=== PATIENT | female | born 1940 | race African-American/Black ===

== ENCOUNTER 2016-12-08 09:34 | Inpatient (IN) | payer OTHER ==
--- NOTE | 2016-12-08 10:12 | PDOC ---
Attending Attestation - HPI HPI: 12/08/16 10:31 76 y/o F with no known PMHx presents to the ED with nausea and vomiting today. Patient reports one episode of bilious vomit. She reports associated headache and abdominal pain. Per sister, patients in August and has been very sad since. Sister reports the patient seems confused. Patient reports she is a healthy and has not seen a doctor in years. Denies chest pain, SOB, dizziness. Denies fever, chills. Denies diarrhea, constipation. - Physicial Exam PE: 12/08/16 10:45 GENERAL: A&Ox2 (minus time), in no acute distress HEAD: No signs of trauma EYES: PERRLA, EOMI, sclera anicteric, conjunctiva clear ENT: Auricles normal inspection, hearing grossly normal, nares patent, oropharynx clear without exudates. Moist mucosa NECK: Normal ROM, supple, no lymphadenopathy, JVD, or masses LUNGS: Breath sounds equal, clear to auscultation bilaterally. No wheezes, and no crackles HEART: Regular rate and rhythm, normal S1 and S2, no murmurs, rubs or gallops ABDOMEN: Soft, nontender, normoactive bowel sounds. No guarding, no rebound. No masses EXTREMITIES: Normal range of motion, no edema. No clubbing or cyanosis. No cords, erythema, or tenderness NEUROLOGICAL: Cranial nerves II through XII grossly intact. Normal speech, normal gait SKIN: Warm, Dry, normal turgor, no rashes or lesions noted. - Medical Decision Making 12/08/16 10:31 Documentation prepared by Swetha Holman, acting as hospitalist medical director for Mary Chapman MD. <Swetha Holman - Last Filed: 12/08/16 10:45> - Resident Resident Name: Chandu Khan - ED Attending Attestation I have performed the following: I have examined & evaluated the patient, The case was reviewed & discussed with the resident, I agree w/resident's findings & plan, Exceptions are as noted - Medical Decision Making Pt with altered mental status (confused, disoriented to time, which is different per family at bedside), extremely elevated BP. Found to have UTI. Will treat the BP, goal of MAP reduction by 25% in ED. Will admit. <Mary Chapman - Last Filed: 12/08/16 16:06>
[2016-12-08] MEDS ORDERED: LABETALOL HCL 5 MG/1 ML (100MG/20 ML VIAL) IVPUSH ONE (10:18)
[2016-12-08 10:19] LABS: BASOPHIL 1.2 % (0-2.0); EOSINOPHIL 0.8 % (0-4.5); MCH 26.3 pg (25.7-33.7); MEAN CELL VOLUME 82.1 fl (80-96); MEAN PLT VOLUME 9.2 fl (7.5-11.1); NEUTROPHILS 82.9 % (42.8-82.8); PLATELET COUNT 225 K/MM3 (134-434); WHITE BLOOD COUNT 5.9 K/mm3 (4.0-10.0)
[2016-12-08] MEDS ORDERED: LABETALOL HCL 5 MG/1 ML (200MG/40ML VIAL) IVPB ONE (10:20)
[2016-12-08 10:32] LABS: URINE APPEARANCE SLCLOUDY; URINE BILIRUBIN NEGATIVE (NEGATIVE); URINE BLOOD 1+ (NEGATIVE); URINE COLOR YELLOW; URINE GLUCOSE (UA) 1+ (NEGATIVE); URINE KETONE NEGATIVE (NEGATIVE); URINE LEUK ESTERASE TRACE (NEGATIVE); URINE NITRITE POSITIVE (NEGATIVE); URINE UROBILINOGEN NEGATIVE mg/dL (0.2-1.0)
[2016-12-08 10:32] LABS: INR 1.04 (0.82-1.09); PROTHROMBIN TIME (PATIENT) 11.4 SEC (9.98-11.88)
[2016-12-08 10:37] LABS: URINE PROTEIN 2+ (NEGATIVE)
[2016-12-08 10:39] LABS: URINE BACTERIA FEW /hpf (NONE SEEN); URINE MUCUS RARE; URINE RBC 9 /hpf (0-3); URINE WBC 7 /hpf (3-5); YEAST RARE
--- NOTE | 2016-12-08 10:46 | PDOC ---
History of Present Illness - General Chief Complaint: Headache Stated Complaint: ABD PAIN, HEADACHE Time Seen by Provider: 12/08/16 09:46 History Source: Patient Exam Limitations: No Limitations - History of Present Illness Initial Comments: 12/08/16 10:38 Patient is a 76F with no known medical history here today complaining of abdominal pain, headache, nausea and vomiting. Her sister is here saying that she's been confused as well. She had 1 episode of green-brown vomit, no blood or coffee grounds. After initially saying that she had headache, abdominal pain and vomiting, she now states that she has no pain anywhere. She denies any symptoms, including nausea, vomiting, fevers, chills, urinary symptoms, constipation, diarrhea, rashes and leg swelling. Past History - Past Medical History Allergies/Adverse Reactions: Allergies Allergy/AdvReac Type Severity Reaction Status Date / Time No Known Allergies Allergy Verified 12/08/16 09:40 Home Medications: Ambulatory Orders NK [No Known Home Medication] 12/08/16 Other medical history: none - Suicide/Smoking/Psychosocial Hx Smoking History: Former smoker Have you smoked in the past 12 months: No Information on smoking cessation initiated: No Hx Alcohol Use: No Drug/Substance Use Hx: No Substance Use Type: None Review of Systems - Review of Systems Comments:: 12/08/16 10:46 GENERAL/CONSTITUTIONAL: No fever or chills. No weakness. HEAD, EYES, EARS, NOSE AND THROAT: No change in vision. No ear pain or discharge. No sore throat. CARDIOVASCULAR: No chest pain or shortness of breath RESPIRATORY: No cough, wheezing, or hemoptysis. GASTROINTESTINAL: No nausea, vomiting, diarrhea or constipation. GENITOURINARY: No dysuria, frequency, or change in urination. MUSCULOSKELETAL: No joint or muscle swelling or pain. No neck or back pain. SKIN: No rash NEUROLOGIC: No headache, vertigo, loss of consciousness, or change in strength/ sensation. ENDOCRINE: No increased thirst. No abnormal weight change HEMATOLOGIC/LYMPHATIC: No anemia, easy bleeding, or history of blood clots. ALLERGIC/IMMUNOLOGIC: No hives or skin allergy. *Physical Exam - Vital Signs Last Vital Signs Temp Pulse Resp BP Pulse Ox 97.7 F 70 18 195/92 100 12/08/16 09:41 12/08/16 10:30 12/08/16 09:41 12/08/16 10:30 12/08/16 10:03 - Physical Exam Comments: 12/08/16 11:10 GENERAL: Awake, alert, oriented to place but not time, in no acute distress HEAD: No signs of trauma, normocephalic, atraumatic EYES: PERRLA, EOMI, sclera anicteric, conjunctiva clear ENT: Auricles normal inspection, hearing grossly normal, nares patent, oropharynx clear without exudates. NECK: Normal ROM, supple, no lymphadenopathy, JVD, or masses LUNGS: No distress, speaks full sentences, clear to auscultation bilaterally HEART: Regular rate and rhythm, normal S1 and S2, no murmurs, rubs or gallops, peripheral pulses normal and equal bilaterally. ABDOMEN: Soft, nontender, normoactive bowel sounds. No guarding, no rebound. No masses EXTREMITIES: Normal inspection, Normal range of motion, no edema. No clubbing or cyanosis. NEUROLOGICAL: Cranial nerves II through XII grossly intact. Normal speech, no focal sensorimotor deficits SKIN: Warm, Dry, normal turgor, no rashes or lesions noted. ED Treatment Course - LABORATORY CBC & Chemistry Diagram: 12/08/16 10:14 12/08/16 11:55 - ADDITIONAL ORDERS Additional order review: Laboratory Results 12/08/16 10:18 Urine Color Yellow Urine Appearance Slcloudy Urine pH 7.0 Urine Protein 2+ H Urine Glucose (UA) 1+ H Urine Ketones Negative Urine Blood 1+ H Urine Nitrite Positive Urine Bilirubin Negative Urine Urobilinogen Negative 12/08/16 10:14 RBC 5.04 MCV 82.1 MCHC 32.0 RDW 17.0 H MPV 9.2 Neutrophils % 82.9 H Lymphocytes % 9.6 Monocytes % 5.5 Eosinophils % 0.8 Basophils % 1.2 - RADIOLOGY Radiology Studies Ordered: Category Date Time Status HEAD CT WITHOUT CONTRAST [CT] Stat CT Scan 12/08/16 10:12 Ordered CHEST X-RAY PORTABLE* [RAD] Stat Radiology 12/08/16 10:10 Taken - Medications Given in the ED: ED Medications Discontinued Medications Generic Name Dose Route Start Last Admin Trade Name Freq PRN Reason Stop Dose Admin Labetalol HCl 10 mg 12/08/16 10:18 12/08/16 10:24 Normodyne Injection - IVPUSH 09/19/17 10:19 10 mg ONCE ONE Administration Medical Decision Making - Medical Decision Making 12/08/16 11:11 76F with no known medical history here today complaining of nausea, vomiting, headache, and abdominal pain. Hypertensive to 252 systolic. Vital signs otherwise normal and stable. Physical exam shows no abdominal pain, but concern that patient is confused and non-cooperative. Differential diagnosis is very broad, and includes: ACS, ICH, UTI. Broad workup initiated, including labs, chest x-ray, ecg and head ct. Given 10mg labetalol. Repeat BP 195. 12/08/16 11:25 Laboratory Tests 12/08/16 12/08/16 10:14 10:18 WBC 5.9 Hgb 13.2 Hct 41.4 Plt Count 225 Urine Nitrite Positive Urine WBC 7 cbc normal, ua shows uti. Will treat with rocephin 1g. CMP and trop hemolyzed, will resend. 12/08/16 11:26 CXR shows cardiomegaly. ECG shows normal sinus rhythm, left axis deviation, normal rate, QTc 398, no t wave inversions. 12/08/16 11:27 CT Head shows no ICH or other acute process. 12/08/16 12:46 Laboratory Tests 12/08/16 10:14 Troponin I Cancelled Trop negative, cmp reassuring. *DC/Admit/Observation/Transfer Diagnosis at time of Disposition: UTI (urinary tract infection) Qualifiers: Urinary tract infection type: site unspecified Hypertension Qualifiers: Hypertension type: unspecified Qualified Code(s): I10 - Essential (primary) hypertension - Discharge Dispostion Condition at time of disposition: Stable Admit: Yes
[2016-12-08 10:48] LABS: CHOLESTEROL 284 mg/dL (50-200)
[2016-12-08] MEDS ORDERED: CEFTRIAXONE 1 GM in DEXTROSE 5%-WATER - 50 ML IVPB ONE (11:15)
[2016-12-08] MEDS ORDERED: CEFTRIAXONE 50 ML ONE (11:21)
[2016-12-08 12:33] LABS: ALBUMIN 3.9 g/dl (3.4-5.0); ANION GAP 8 (8-16); BILIRUBIN,TOTAL 1.6 mg/dL (0.2-1.0); CALCIUM 9.5 mg/dL (8.5-10.1); CO2 31 mmol/L (21-32); CREATININE 0.8 mg/dL (0.55-1.02); GLUCOSE,RANDOM 113 mg/dL (74-106); SGOT/AST 15 U/L (15-37); SGPT/ALT 14 U/L (12-78)
[2016-12-08 12:35] LABS: ALK PHOS 52 U/L (45-117); CPK 93 IU/L (26-192); TROPONIN I < 0.02 ng/ml (0.00-0.05)
--- NOTE | 2016-12-08 13:44 | HP ---
<Valentina Carter I - Last Filed: 12/08/16 16:26> CHIEF COMPLAINT: Not feeling herself PCP: None HISTORY OF PRESENT ILLNESS: Patient is a poor historian. History I got from the patient is different from what was documented when she arrived in the ED. The family did not provide history for the patient as she appeared alert and oriented when I saw her. The patient is a 76 year old female with PMHx of HTN, not taking any medication , last visit to a doctor about 4 years ago, presenting today for "not feeling herself". Patient said she was in her usual state of health when she woke up this morning and felt a "flash in her head." She denies seizure, headache, syncope, weakness of any limbs, difficulty in closing her eyes, change in her speech or drooling. She denies chest pain or SOB. No fever or chills. No nausea or vomiting. Patient was teary-eyed during the history, says she has been independent and is reluctant to have to be confined to a bed in the hospital. On arrival at the ED, her blood pressure was found to be 252/105 for which she received iv push of 10mg Labetolol repeat BP was 195/92 and the most recent BP was 188/96. Patient denied any chest pain, and a CXR in the ED- showed cardiomegaly, and no evidence of exudates or pleural effusion. She called her sister, who now brought her to the hospital. ER course was notable for: (1)CXR-No infiltrates (2)CT head- No acute hemorrhage, age related degeneration and old lacunar infarcts (3)UA- Protein 2+, Glucose 1+ 4) Lipid panel- elevated Cholesterol-284, Total-188, HDL-78 5) CMP - elevated bilirubin 6) EKG- Left [place] Deviation, sinus bradycardia 7) Troponins- negative 8) Ceftriaxone 1gm Recent Travel: PAST MEDICAL HISTORY: PAST SURGICAL HISTORY: Social History: Smoking: Stopped over 11 years ago after Alcohol: Drugs: Family History: Mother in her 80yrs, of a stroke and had been hypertensive. Has 9 other siblings all of which are hypertensive on BP meds Allergies No Known Allergies Allergy (Verified 12/08/16 09:40) HOME MEDICATIONS: Home Medications Medication Instructions Recorded NK [No Known Home Medication] 09/19/17 REVIEW OF SYSTEMS CONSTITUTIONAL: Absent: fever, chills, diaphoresis, generalized weakness, malaise, loss of appetite, weight change HEENT: Absent: rhinorrhea, nasal congestion, throat pain, throat swelling, difficulty swallowing, mouth swelling, ear pain, eye pain, visual changes CARDIOVASCULAR: Absent: chest pain, syncope, palpitations, irregular heart rate, lightheadedness , peripheral edema RESPIRATORY: Absent: cough, shortness of breath, dyspnea with exertion, orthopnea, wheezing, stridor, hemoptysis GASTROINTESTINAL: Absent: abdominal pain, abdominal distension, nausea, vomiting, diarrhea, constipation, melena, hematochezia GENITOURINARY: Absent: dysuria, frequency, urgency, hesitancy, hematuria, flank pain, genital pain MUSCULOSKELETAL: Absent: myalgia, arthralgia, joint swelling, back pain, neck pain SKIN: Absent: rash, itching, pallor HEMATOLOGIC/IMMUNOLOGIC: Absent: easy bleeding, easy bruising, lymphadenopathy, frequent infections ENDOCRINE: Absent: unexplained weight gain, unexplained weight loss, heat intolerance, cold intolerance NEUROLOGIC: Absent: headache, focal weakness or paresthesias, dizziness, unsteady gait, seizure, mental status changes, bladder or bowel incontinence PSYCHIATRIC: Absent: anxiety, depression, suicidal or homicidal ideation, hallucinations. PHYSICAL EXAMINATION Selected Entries 12/08/16 12/08/16 12/08/16 10:19 10:30 12:23 Blood Pressure 252/105 195/92 188/96 [Right Arm] Vital Signs - 24 hr 12/08/16 12/08/16 12/08/16 09:41 10:03 10:19 Temperature 97.7 F Pulse Rate 66 Pulse Rate [ 60 Apical] Respiratory 18 Rate Blood Pressure 205/108 Blood Pressure 252/105 [Right Arm] O2 Sat by Pulse 100 100 Oximetry (%) 12/08/16 12/08/16 10:30 12:23 Temperature 97.7 F Pulse Rate Pulse Rate [ 70 59 L Apical] Respiratory 20 Rate Blood Pressure Blood Pressure 195/92 188/96 [Right Arm] O2 Sat by Pulse 97 Oximetry (%) GENERAL: Awake, alert, and fully oriented, in no acute distress. HEAD: Normal with no signs of trauma. EYES: Pupils equal, round and reactive to light, extraocular movements intact, sclera anicteric, conjunctiva clear. No lid lag. EARS, NOSE, THROAT: Ears normal, nares patent, oropharynx clear without exudates. Moist mucous membranes. NECK: Normal range of motion, supple, no JVD. LUNGS: Breath sounds equal, clear to auscultation bilaterally. No wheezes, and no crackles. No accessory muscle use. HEART: [place] deviated, Regular rate and rhythm, normal S1 and S2 without murmur, rub or gallop. ABDOMEN: Soft, nontender, not distended, normoactive bowel sounds, no guarding, no rebound, no masses. No hepatomegaly or splenomegaly. MUSCULOSKELETAL: Normal range of motion at all joints. No bony deformities or tenderness. No CVA tenderness. UPPER EXTREMITIES: 2+ pulses, warm, well-perfused. No cyanosis. No clubbing. No peripheral edema. LOWER EXTREMITIES: 2+ pulses, warm, well-perfused. No calf tenderness. No peripheral edema. Callous L medial big toe. NEUROLOGICAL: No facial droop. Normal tone all limbs. Muscle strength 5/5 globally, Cranial nerves II-XII intact. Normal speech. Normal gait. PSYCHIATRIC: Cooperative. Good eye contact. Appropriate mood and affect. SKIN: Warm, dry, normal turgor, no rashes or lesions noted, normal capillary refill. Laboratory Results - last 24 hr 12/08/16 12/08/16 12/08/16 10:14 10:14 10:14 WBC 5.9 RBC 5.04 Hgb 13.2 Hct 41.4 MCV 82.1 MCH 26.3 MCHC 32.0 RDW 17.0 H Plt Count 225 MPV 9.2 Neutrophils % 82.9 H Lymphocytes % 9.6 Monocytes % 5.5 Eosinophils % 0.8 Basophils % 1.2 PT with INR 11.40 INR 1.04 Sodium Cancelled Potassium Cancelled Chloride Cancelled Carbon Dioxide Cancelled Anion Gap Cancelled BUN Cancelled Creatinine Cancelled Creat Clearance w eGFR Cancelled Random Glucose Cancelled Calcium Cancelled Magnesium Cancelled Total Bilirubin Cancelled AST Cancelled ALT Cancelled Alkaline Phosphatase Cancelled Creatine Kinase Cancelled Troponin I Cancelled Total Protein Cancelled Albumin Cancelled Triglycerides Cholesterol Total LDL Cholesterol HDL Cholesterol Urine Color Urine Appearance Urine pH Urine Protein Urine Glucose (UA) Urine Ketones Urine Blood Urine Nitrite Urine Bilirubin Urine Urobilinogen Urine RBC Urine WBC Ur Epithelial Cells Urine Bacteria Urine Mucus Urine Yeast 12/08/16 12/08/16 12/08/16 10:14 10:18 11:55 WBC RBC Hgb Hct MCV MCH MCHC RDW Plt Count MPV Neutrophils % Lymphocytes % Monocytes % Eosinophils % Basophils % PT with INR INR Sodium 141 Potassium 4.0 Chloride 102 Carbon Dioxide 31 Anion Gap 8 BUN 15 Creatinine 0.8 Creat Clearance w eGFR > 60 Random Glucose 113 H Calcium 9.5 Magnesium Total Bilirubin 1.6 H AST 15 ALT 14 Alkaline Phosphatase 52 Creatine Kinase 93 Troponin I < 0.02 Total Protein 7.0 Albumin 3.9 Triglycerides 95 Cholesterol 284 H Total LDL Cholesterol 188 H HDL Cholesterol 78 H Urine Color Yellow Urine Appearance Slcloudy Urine pH 7.0 Urine Protein 2+ H Urine Glucose (UA) 1+ H Urine Ketones Negative Urine Blood 1+ H Urine Nitrite Positive Urine Bilirubin Negative Urine Urobilinogen Negative Urine RBC 9 Urine WBC 7 Ur Epithelial Cells Rare Urine Bacteria Few Urine Mucus Rare Urine Yeast Rare ASSESSMENT/PLAN: The patient is a 76 year old female with PMHx of HTN, not taking any medication , last visit to a doctor about 4 years ago, presenting today for "not feeling herself" and found to have severe blood pressure. #Hypertensive urgency: iv Labetolol 10mg stat-given Lisinopril 20mg PO daily Norvasc 10mg PO daily Give Enalapril 1.25mg if SBP is greater than 190mmHg and to hold if SBP is less than 160mmHg Continous cardiac monitoring Cardiology consult-Dr. Lewis saw #Hyperlipidemia: Atorvostatin 40mg daily #Proteinuria: 2+ proteins, 9 RBCs, R/o UTI Urine culture- Microalbuminuria Iv ceftriaxone 1gm stat- given Normal GFR and CR, so not likely hypertensive disease Discontinue ceftriaxone #Glycosuria: Glucose 1+ No history of DM RPG- 113 HbgA1C #Hyperbilirubinemia Follow -CMP Visit type - Emergency Visit Emergency Visit: Yes ED Registration Date: 12/08/16 Care time: The patient presented to the Emergency Department on the above date and was hospitalized for further evaluation of their emergent condition. - New Patient This patient is new to me today: Yes Date on this admission: 12/08/16 - Critical Care Critical Care patient: No <Zion Joe - Last Filed: 12/08/16 20:49> Correction: Vasotec IV to be given if SBP above 160. No loveonx or heparin until Blood pressure is stablized
[2016-12-08] MEDS ORDERED: ACETAMINOPHEN 325 MG TABLET (FP) PO PRN (14:04)
[2016-12-08] MEDS ORDERED: LABETALOL HCL 5 MG/1 ML (100MG/20 ML VIAL) IVPUSH PRN (14:25)
[2016-12-08] MEDS ORDERED: ENOXAPARIN NA (PORCINE) 40 MG/0.4 ML DISP.SYRIN SQ SCH (14:30)
--- NOTE | 2016-12-08 14:37 | HP ---
Admitting History and Physical - Primary Care Physician PCP: None - Admission Chief Complaint: Not feeling herself History of Present Illness: Briefly, 76 yo AA with remote h/o HTN brought in by her sister because she's not feeling herself. Patient is a poor historian and unable to elaborate further as why she's not feeling right. Per ED chart, she woke up with headache and n/v. In the ED, she's found to have BP of 252/105 for which she received labetalol IV 10mg but she denied any neurological, ophthalmologic, abdominal, or urinary symptoms. History Source: Patient Limitations to Obtaining History: Other (Poor historian) - Smoking History Smoking history: Former smoker Have you smoked in the past 12 months: No - Alcohol/Substance Use Hx Alcohol Use: No Home Medications - Allergies Allergies/Adverse Reactions: Allergies Allergy/AdvReac Type Severity Reaction Status Date / Time No Known Allergies Allergy Verified 12/08/16 09:40 - Home Medications Home Medications: Ambulatory Orders NK [No Known Home Medication] 12/08/16 Review of Systems - Review of Systems Constitutional: reports: No Symptoms Cardiovascular: reports: No Symptoms. denies: Chest Pain Respiratory: reports: No Symptoms. denies: SOB Gastrointestinal: reports: No Symptoms. denies: Nausea, Vomiting Genitourinary: reports: No Symptoms Physical Examination Vital Signs: Vital Signs Temperature 97.7 F 12/08/16 12:23 Pulse Rate 59 L 12/08/16 12:23 Respiratory Rate 20 12/08/16 12:23 Blood Pressure 188/96 12/08/16 12:23 O2 Sat by Pulse Oximetry (%) 97 12/08/16 12:23 Constitutional: Yes: No Distress, Calm Eyes: Yes: Conjunctiva Clear, EOM Intact, PERRL, Sclera Icterus HENT: Yes: Atraumatic, Normocephalic Cardiovascular: Yes: Regular Rate and Rhythm, S1, S2 Respiratory: Yes: CTA Bilaterally Gastrointestinal: Yes: Normal Bowel Sounds, Soft. No: Distention, Tenderness Edema: No Integumentary: No: Jaundice Neurological: Yes: Alert, Oriented, Cran Nerves II-XII Intact ...Motor Strength: WNL Labs: CBC, BMP 12/08/16 10:14 12/08/16 11:55 Imaging - Results Chest X-ray: Report Reviewed, Image Reviewed Cat Scan: Report Reviewed, Image Reviewed EKG: Report Reviewed, Image Reviewed Assessment/Plan Hypertensive urgency - Responded well to IV labetalol in ED - Likely have long standing HTN - Start lisinopril 20mg and norvasc 10mg daily - Vasotec PRN - Cont. to monitor BP HLD - Start lipitor 40mg daily Proteinuria and glycosuria - ?diabetic nephropathy - f/u a1c Elevated bilirubin - f/u direct bili - f/u repeat CMP Visit type - Emergency Visit Emergency Visit: Yes ED Registration Date: 12/08/16 Care time: The patient presented to the Emergency Department on the above date and was hospitalized for further evaluation of their emergent condition. - New Patient This patient is new to me today: Yes Date on this admission: 12/08/16 - Critical Care Critical Care patient: No
--- NOTE | 2016-12-08 15:00 | PN ---
Teaching Attending Note Name of Resident: Valentina Carter ATTENDING PHYSICIAN STATEMENT I saw and evaluated the patient. I reviewed the resident's note and discussed the case with the resident. I agree with the resident's findings and plan as documented. SUBJECTIVE: Patient is comfortable, no headache, or shortness of breath. Presented with elevated BP of 252/105 OBJECTIVE: Vital Signs Temperature 97.7 F 12/08/16 12:23 Pulse Rate 59 L 12/08/16 12:23 Respiratory Rate 20 12/08/16 12:23 Blood Pressure 188/96 12/08/16 12:23 O2 Sat by Pulse Oximetry (%) 97 12/08/16 12:23 CBCD WBC 5.9 K/mm3 (4.0-10.0) 12/08/16 10:14 RBC 5.04 M/mm3 (3.60-5.2) 12/08/16 10:14 Hgb 13.2 GM/dL (10.7-15.3) 12/08/16 10:14 Hct 41.4 % (32.4-45.2) 12/08/16 10:14 MCV 82.1 fl (80-96) 12/08/16 10:14 MCHC 32.0 g/dl (32.0-36.0) 12/08/16 10:14 RDW 17.0 % (11.6-15.6) H 12/08/16 10:14 Plt Count 225 K/MM3 (134-434) 12/08/16 10:14 MPV 9.2 fl (7.5-11.1) 12/08/16 10:14 CMP Sodium 141 mmol/L (136-145) 12/08/16 11:55 Potassium 4.0 mmol/L (3.5-5.1) 12/08/16 11:55 Chloride 102 mmol/L (98-107) 12/08/16 11:55 Carbon Dioxide 31 mmol/L (21-32) 12/08/16 11:55 Anion Gap 8 (8-16) 12/08/16 11:55 BUN 15 mg/dL (7-18) 12/08/16 11:55 Creatinine 0.8 mg/dL (0.55-1.02) 12/08/16 11:55 Creat Clearance w eGFR > 60 (>60) 12/08/16 11:55 Random Glucose 113 mg/dL (74-106) H 12/08/16 11:55 Calcium 9.5 mg/dL (8.5-10.1) 12/08/16 11:55 Total Bilirubin 1.6 mg/dL (0.2-1.0) H 12/08/16 11:55 AST 15 U/L (15-37) 12/08/16 11:55 ALT 14 U/L (12-78) 12/08/16 11:55 Alkaline Phosphatase 52 U/L (45-117) 12/08/16 11:55 Total Protein 7.0 g/dl (6.4-8.2) 12/08/16 11:55 Albumin 3.9 g/dl (3.4-5.0) 12/08/16 11:55 CARDIAC ENZYMES Creatine Kinase 93 IU/L (26-192) 12/08/16 11:55 Troponin I < 0.02 ng/ml (0.00-0.05) 12/08/16 11:55 Current Medications Generic Name Dose Route Start Last Admin Trade Name Freq PRN Reason Stop Dose Admin Acetaminophen 650 mg 12/08/16 14:04 Tylenol - PO Q6H PRN FEVER OR PAIN Enoxaparin Sodium 40 mg 12/08/16 14:30 12/08/16 14:33 Lovenox - SQ 40 mg DAILY EARL Administration Labetalol HCl 10 mg 12/08/16 14:25 Normodyne Injection - IVPUSH Q4H PRN HEADACHE Home Medications Medication Instructions Recorded NK [No Known Home Medication] 12/08/16 Current Medications Generic Name Dose Route Start Last Admin Trade Name Freq PRN Reason Stop Dose Admin Acetaminophen 650 mg 12/08/16 14:04 Tylenol - PO Q6H PRN FEVER OR PAIN Amlodipine Besylate 10 mg 12/08/16 16:45 12/08/16 18:35 Norvasc - PO 10 mg DAILY EARL Administration Atorvastatin Calcium 40 mg 12/08/16 22:00 Lipitor - PO HS EARL Enalaprilat 1.25 mg 12/08/16 20:35 Vasotec Injection - IVPB Q6H PRN HEADACHE Enoxaparin Sodium 40 mg 12/08/16 14:30 12/08/16 14:33 Lovenox - SQ 40 mg DAILY EARL Administration Lisinopril 10 mg 12/08/16 16:45 12/08/16 18:35 Prinivil PO 10 mg DAILY EARL Administration Urine Test Results Urine Color Yellow 12/08/16 10:18 Urine Appearance Slcloudy 12/08/16 10:18 Urine pH 7.0 (5.0-8.0) 12/08/16 10:18 Ur Specific [place] 1.025 (1.005-1.025) 12/08/16 10:18 Urine Protein 2+ (NEGATIVE) H 12/08/16 10:18 Urine Glucose (UA) 1+ (NEGATIVE) H 12/08/16 10:18 Urine Ketones Negative (NEGATIVE) 12/08/16 10:18 Urine Blood 1+ (NEGATIVE) H 12/08/16 10:18 Urine Nitrite Positive (NEGATIVE) 12/08/16 10:18 Urine Bilirubin Negative (NEGATIVE) 12/08/16 10:18 Urine RBC 9 /hpf (0-3) 12/08/16 10:18 Urine WBC 7 /hpf (3-5) 12/08/16 10:18 Ur Epithelial Cells Rare /hpf (FEW) 12/08/16 10:18 Urine Bacteria Few /hpf (NONE SEEN) 12/08/16 10:18 Urine Mucus Rare 12/08/16 10:18 CT of the head:negative PE: per resident's note CVS: S1S2 positive, abdomen: soft, NT Ext: pulses are positive. ASSESSMENT AND PLAN: The patient is a 76 year old female with PMHx of HTN, not taking any medication , last visit to a doctor about 4 years ago, presenting today for "not feeling herself" and found to have severe blood pressure. #Hypertensive urgency presented with 252/105:s/p Labetolol 10mg given in ER, continue with lisinopril 20mg and Norvasc 10mg po daily( started in the hospital ) Cardiology consult-Dr. Lewis appreciated. Vasotec with holding parameters give if SBP below 160 #Hyperlipidemia: Atorvostatin 40mg daily #Urine positive for Protein , place the patient on Lisinopril #Glucose 1+ in the urine , check hgA1c r/o DM #Hyperbilirubinemia Follow -CMP DVT pX: Heparin 5000 sq, don't give until BP is stabilized or below 180 SCDs
[2016-12-08] MEDS ORDERED: ENALAPRILAT DIHYDRATE 1.25 MG/1 ML VIAL IVPB PRN ×2 (15:26→20:35)
[2016-12-08] MEDS ORDERED: LISINOPRIL 10 MG TABLET (FP) PO SCH (16:45)
--- NOTE | 2016-12-08 17:05 | CON.CARD ---
Consult Consult Specialty:: cardiology Reason for Consultation:: hypertensive urgency - History of Present Illness Chief Complaint: nausea and vomiting History of Present Illness: 76 y/o F with no known PMHx presents to the ER with nausea and vomiting today; she was found to have extremely high BP in ER. Patient reports one episode of bilious vomiting. She reports associated headache and abdominal pain. Per sister , patients in August and has been very sad since. Sister reports the patient seems confused; she is unsure where she is. Patient reports she is healthy and has not seen a doctor in years. Denies chest pain, SOB, dizziness. Denies fever, chills. Denies diarrhea, constipation. - History Source History Provided By: Patient, Medical Record Limitations to Obtaining History: Poor Historian - Past Medical History Reproductive: Yes: Postmenopausal ...: No - Alcohol/Substance Use Hx Alcohol Use: No - Smoking History Smoking history: Former smoker Have you smoked in the past 12 months: No Home Medications - Allergies Allergies/Adverse Reactions: Allergies Allergy/AdvReac Type Severity Reaction Status Date / Time No Known Allergies Allergy Verified 12/08/16 09:40 - Home Medications Home Medications: Ambulatory Orders NK [No Known Home Medication] 12/08/16 Review of Systems - Review of Systems Constitutional: reports: Weakness Eyes: reports: No Symptoms HENT: reports: No Symptoms Neck: reports: No Symptoms Cardiovascular: reports: No Symptoms Respiratory: reports: No Symptoms Gastrointestinal: reports: Nausea, Vomiting Genitourinary: reports: No Symptoms Breasts: reports: No Symptoms Reported Musculoskeletal: reports: Muscle Weakness Integumentary: reports: No Symptoms Neurological: reports: Confusion Endocrine: reports: No Symptoms Hematology/Lymphatic: reports: No Symptoms Psychiatric: reports: Anxiety, Other - Risk Factors Known Risk Factors: Yes: Age, Hypertension Vital Signs: Vital Signs Temperature 98.1 F 12/08/16 16:02 Pulse Rate 62 12/08/16 16:02 Respiratory Rate 20 12/08/16 16:02 Blood Pressure 182/95 12/08/16 16:02 O2 Sat by Pulse Oximetry (%) 98 12/08/16 16:02 Constitutional: Yes: Anxious Eyes: Yes: WNL HENT: Yes: WNL, Pharyngeal Erythema Respiratory: Yes: WNL Gastrointestinal: Yes: Soft. No: Tenderness Renal/: No: Anuria Cardiovascular: Yes: Bradycardia JVD: No Carotid Bruit: No PMI: Displaced Heart Sounds: Yes: S1, S2, S4 Murmur: Yes: Systolic Murmur, Grade 2 Musculoskeletal: Yes: Muscle Weakness Extremities: Yes: WNL Edema: No Peripheral Pulses WNL: Yes Integumentary: Yes: WNL Neurological: Yes: Weakness Psychiatric: Yes: Other - Other Data Labs, Other Data: INR, PTT INR 1.04 (0.82-1.09) 12/08/16 10:14 Abnormal Lab Results 12/08/16 12/08/16 12/08/16 10:14 10:14 10:18 RDW 17.0 H Neutrophils % 82.9 H Random Glucose Total Bilirubin Cholesterol 284 H Total LDL Cholesterol 188 H HDL Cholesterol 78 H Urine Protein 2+ H Urine Glucose (UA) 1+ H Urine Blood 1+ H 12/08/16 11:55 RDW Neutrophils % Random Glucose 113 H Total Bilirubin 1.6 H Cholesterol Total LDL Cholesterol HDL Cholesterol Urine Protein Urine Glucose (UA) Urine Blood Imaging - Results Chest X-ray: Image Reviewed (cardiomegaly; no acute pathology) EKG: Image Reviewed (sinus bradycardia; LAD; LAE) Problem List - Problems (1) Hypertension Assessment/Plan: on amlodipine and lisinopril; was givne labetolol earlier. ECHO for LVEF, wall thickness and motion; valve status. f/u TSH (bradycardia). Code(s): I10 - ESSENTIAL (PRIMARY) HYPERTENSION Qualifiers: Hypertension type: unspecified Qualified Code(s): I10 - Essential ( primary) hypertension (2) UTI (urinary tract infection) Code(s): N39.0 - URINARY TRACT INFECTION, SITE NOT SPECIFIED Qualifiers: Urinary tract infection type: site unspecified (3) Confusion Code(s): R41.0 - DISORIENTATION, UNSPECIFIED (4) Hyperlipidemia Assessment/Plan: very high LDL; start statin. Code(s): E78.5 - HYPERLIPIDEMIA, UNSPECIFIED (5) Bradycardia Assessment/Plan: f/u TSH; telemetry. Code(s): R00.1 - BRADYCARDIA, UNSPECIFIED
[2016-12-08 18:20] VITALS: BMI 23.1
[2016-12-08] MEDS ORDERED: FLU VACCINE QUAD 60 MCG/0.5 ML (MDV 17-18) IM ONE (18:20)
[2016-12-08] MEDS: amLODIPine BESYLATE 10 MG TABLET (FP) PO SCH (18:35)
--- NOTE | 2016-12-08 20:43 | EKG ---
Test Reason : Blood Pressure : / mmHG Vent. Rate : 054 BPM Atrial Rate : 054 BPM P-R Int : 172 ms QRS Dur : 088 ms QT Int : 420 ms P-R-T Axes : 064 -30 010 degrees QTc Int : 398 ms SINUS BRADYCARDIA LEFT AXIS DEVIATION LEFT ATRIAL ABNORMALITY NONSPECIFIC T WAVE ABNORMALITY ABNORMAL ECG WHEN COMPARED WITH ECG OF 16-APR-2007 19:03, QRS AXIS SHIFTED LEFT NONSPECIFIC T WAVE ABNORMALITY NOW EVIDENT IN INFERIOR LEADS T WAVE INVERSION NOW EVIDENT IN ANTERIOR LEADS FOLLW UP TRACING IS RECOMMENDED Confirmed by EDER HUDSON MD ([id number]) on 12/08/2016 8:43:11 PM Referred By: Confirmed By:EDER HUDSON MD
[2016-12-08] MEDS ORDERED: LISINOPRIL 10 MG TABLET (FP) PO ONE (20:45)
[2016-12-08] MEDS: ATORVASTATIN CA 40 MG TABLET (FP) PO SCH (21:15)
[2016-12-09 08:19] LABS: BASOPHIL 0.8 % (0-2.0); EOSINOPHIL 1.1 % (0-4.5); MCH 26.4 pg (25.7-33.7); MCHC 32.3 g/dl (32.0-36.0); MEAN CELL VOLUME 81.8 fl (80-96); MEAN PLT VOLUME 9.7 fl (7.5-11.1); NEUTROPHILS 71.2 % (42.8-82.8); PLATELET COUNT 241 K/MM3 (134-434); RDW 16.4 % (11.6-15.6); WHITE BLOOD COUNT 4.6 K/mm3 (4.0-10.0)
[2016-12-09 08:55] LABS: ALBUMIN 3.6 g/dl (3.4-5.0); ANION GAP 5 (8-16); CALCIUM 9.7 mg/dL (8.5-10.1); CO2 31 mmol/L (21-32); GLUCOSE,RANDOM 89 mg/dL (74-106); MAGNESIUM 2.4 mg/dL (1.8-2.4)
[2016-12-09 08:57] LABS: ALK PHOS 46 U/L (45-117); BILIRUBIN,TOTAL 1.6 mg/dL (0.2-1.0); CREATININE 0.9 mg/dL (0.55-1.02); PHOSPHOROUS 4.5 mg/dL (2.5-4.9); SGOT/AST 14 U/L (15-37); SGPT/ALT 14 U/L (12-78); TOT PROT 6.3 g/dl (6.4-8.2)
[2016-12-09] MEDS: HEPARIN NA (PORCINE) 5,000 UNITS/ML 1ML VIAL SQ SCH ×3 (08:57→22:13)
[2016-12-09] MEDS ORDERED: PT OWN MED DRAWER 7, Y5N ONE (09:27)
--- NOTE | 2016-12-09 09:49 | PN ---
Progress Note, Physician History of Present Illness: 76 y/o F with no known PMHx presents to the ER with nausea and vomiting today; she was found to have extremely high BP in ER. Patient reports one episode of bilious vomiting. She reports associated headache and abdominal pain. Per sister , patients in August and has been very sad since. Sister reports the patient seems confused; she is unsure where she is. Patient reports she is healthy and has not seen a doctor in years. Denies chest pain, SOB, dizziness. Denies fever, chills. Denies diarrhea, constipation. - Current Medication List Current Medications: Active Medications Acetaminophen (Tylenol -) 650 mg PO Q6H PRN PRN Reason: FEVER OR PAIN Amlodipine Besylate (Norvasc -) 10 mg PO DAILY [facility] Last Admin: 12/08/16 18:35 Dose: 10 mg Atorvastatin Calcium (Lipitor -) 40 mg PO HS [facility] Last Admin: 12/08/16 21:15 Dose: 40 mg Heparin Sodium (Porcine) (Heparin -) 5,000 unit SQ TID [facility] Lisinopril (Prinivil) 20 mg PO DAILY [facility] - Objective Vital Signs: Vital Signs Temperature 98.6 F 12/09/16 06:00 Pulse Rate 69 12/09/16 06:00 Respiratory Rate 20 12/09/16 06:00 Blood Pressure 150/98 12/09/16 06:00 O2 Sat by Pulse Oximetry (%) 99 12/08/16 21:00 Eyes: Yes: WNL, Conjunctiva Clear, EOM Intact HENT: Yes: WNL, Atraumatic, Normocephalic Neck: Yes: WNL, Supple, Trachea Midline Cardiovascular: Yes: WNL, Regular Rate and Rhythm Respiratory: Yes: WNL, Regular, CTA Bilaterally Gastrointestinal: Yes: WNL, Normal Bowel Sounds Genitourinary: Yes: WNL Musculoskeletal: Yes: WNL Extremities: Yes: WNL Edema: No Integumentary: Yes: WNL Neurological: Yes: WNL, Alert, Oriented ...Motor Strength: WNL Psychiatric: Yes: WNL Labs: CBC, BMP 12/09/16 05:46 12/09/16 05:46 INR, PTT INR 1.04 (0.82-1.09) 12/08/16 10:14 Assessment/Plan - Problems (1) Hypertension Assessment/Plan: on amlodipine and lisinopril; was givne labetolol earlier. ECHO for LVEF, wall thickness and motion; valve status. f/u TSH (bradycardia). Code(s): I10 - ESSENTIAL (PRIMARY) HYPERTENSION Qualifiers: Hypertension type: unspecified Qualified Code(s): I10 - Essential ( primary) hypertension (2) UTI (urinary tract infection) Code(s): N39.0 - URINARY TRACT INFECTION, SITE NOT SPECIFIED Qualifiers: Urinary tract infection type: site unspecified (3) Confusion Code(s): R41.0 - DISORIENTATION, UNSPECIFIED (4) Hyperlipidemia Assessment/Plan: very high LDL; start statin. Code(s): E78.5 - HYPERLIPIDEMIA, UNSPECIFIED (5) Bradycardia Assessment/Plan: f/u TSH; telemetry. Code(s): R00.1 - BRADYCARDIA, UNSPECIFIED
[2016-12-09] MEDS: LISINOPRIL 20 MG TABLET (FP) PO SCH (10:57)
[2016-12-09] MEDS: amLODIPine BESYLATE 10 MG TABLET (FP) PO SCH (10:57)
[2016-12-09] MEDS: LEVOFLOXACIN 500 MG TABLET (FP) PO SCH (17:40)
[2016-12-09] MEDS: ASPIRIN COATED 81 MG TABLET.EC PO SCH (17:41)
--- NOTE | 2016-12-09 18:37 | PN ---
Physical Exam: SUBJECTIVE: Patient seen and examined No new complaints. Still tearful. OBJECTIVE: Vital Signs Period Temp Pulse Resp BP Sys/Luz Pulse Ox Last 24 Hr 98.0 F-98.6 F 60-74 18-20 119-190/62-98 99-100 GENERAL: The patient is awake, alert, and fully oriented, in no acute distress. HEAD: Normal with no signs of trauma. EYES: PERRL, extraocular movements intact, sclera anicteric, conjunctiva clear. No ptosis. ENT: Ears normal, nares patent, oropharynx clear without exudates, moist mucous membranes. NECK: Trachea midline, full range of motion, supple. LUNGS: Breath sounds equal, clear to auscultation bilaterally, no wheezes, no crackles, no accessory muscle use. HEART: Regular rate and rhythm, S1, S2 without murmur, rub or gallop. ABDOMEN: Soft, nontender, nondistended, normoactive bowel sounds, no guarding, no rebound, no hepatosplenomegaly, no masses. EXTREMITIES: 2+ pulses, warm, well-perfused, no edema. NEUROLOGICAL: Cranial nerves II through XII grossly intact. Normal speech, gait not observed. PSYCH: Normal mood, normal affect. SKIN: Warm, dry, normal turgor, no rashes or lesions noted Laboratory Results - last 24 hr 12/08/16 12/09/16 12/09/16 18:00 05:46 05:46 WBC 4.6 RBC 4.67 Hgb 12.3 Hct 38.2 MCV 81.8 MCH 26.4 MCHC 32.3 RDW 16.4 H Plt Count 241 MPV 9.7 Neutrophils % 71.2 Lymphocytes % 17.8 D Monocytes % 9.1 Eosinophils % 1.1 Basophils % 0.8 Sodium 139 Potassium 4.2 Chloride 103 Carbon Dioxide 31 Anion Gap 5 L BUN 20 H D Creatinine 0.9 Creat Clearance w eGFR > 60 Random Glucose 89 D Hemoglobin A1c % Calcium 9.7 Phosphorus 4.5 Magnesium 2.4 Total Bilirubin 1.6 H AST 14 L ALT 14 Alkaline Phosphatase 46 Troponin I 0.02 Total Protein 6.3 L Albumin 3.6 12/09/16 05:46 WBC RBC Hgb Hct MCV MCH MCHC RDW Plt Count MPV Neutrophils % Lymphocytes % Monocytes % Eosinophils % Basophils % Sodium Potassium Chloride Carbon Dioxide Anion Gap BUN Creatinine Creat Clearance w eGFR Random Glucose Hemoglobin A1c % 5.8 Calcium Phosphorus Magnesium Total Bilirubin AST ALT Alkaline Phosphatase Troponin I Total Protein Albumin Active Medications Generic Name Dose Route Start Last Admin Trade Name Jemal PRN Reason Stop Dose Admin Acetaminophen 650 mg 12/08/16 14:04 Tylenol - PO Q6H PRN FEVER OR PAIN Amlodipine Besylate 10 mg 12/08/16 16:45 12/09/16 10:57 Norvasc - PO 10 mg DAILY EAR[facility] Administration Aspirin 81 mg 12/09/16 14:15 12/09/16 17:41 Ecotrin - PO 81 mg DAILY E[facility] Administration Atorvastatin Calcium 40 mg 12/08/16 22:00 12/08/16 21:15 Lipitor - PO 40 mg HS EAR[facility] Administration Heparin Sodium (Porcine) 5,000 unit 12/09/16 08:00 12/09/16 13:16 Heparin - SQ Not Given TID EARL Levofloxacin 500 mg 12/09/16 14:15 12/09/16 17:40 Levaquin - PO 500 mg DAILY@0600 [facility] Administration Lisinopril 20 mg 12/09/16 10:00 12/09/16 10:57 Prinivil PO 20 mg DAILY [facility] Administration ASSESSMENT/PLAN: A 76 year old female with PMHx of HTN, not taking any medication, last visit to a doctor about 4 years ago, Presented with vague symptoms and confusion, found to be in hypertensive emergency #Hypertensive emergency: Lisinopril 20mg PO daily Norvasc 10mg PO daily Give Enalapril 1.25mg if SBP is greater than 190mmHg and to hold if SBP is less than 160mmHg Continous cardiac monitoring Cardiology consult-Dr. 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 - New Patient This patient is new to me today: No - Critical Care Critical Care patient: No - Discharge Referral Referred to [facility] Med P.C.: No
--- NOTE | 2016-12-09 19:48 | PN ---
Teaching Attending Note Name of Resident: Valentina Carter ATTENDING PHYSICIAN STATEMENT I saw and evaluated the patient. I reviewed the resident's note and discussed the case with the resident. I agree with the resident's findings and plan as documented. SUBJECTIVE: no fever or chills. has no AYALA or visual changes. OBJECTIVE: NAD CV : RRR, no delay between radial and femoral pulses LUNgs ; CTAB ext : no edema Abd : soft, NT, ND , NL BS, no bruits over the renal arteries A/P : 76 y/o lady with h/o untreated HTN , who presented with a complaints of not feeling well , and was found to have HTN emergency 1- HTN emergency ( AMS and vomiting ) . improved now - cont norvasc and lisinopril - Echo reviewed, diastolic disfunction - CT head with lacunar infarcts and old ischemia. start ASA 2- HLP: goal < 70 due to signs of chronic cerebral ischemia . - cont statin started here 3- Proteinuria , likely due to HTN. A1c 5.8 4- hyperbilirubiniemia : check fractionated Bili . possibly have Gilbert's dispo : monitor BP till tomorrow
[2016-12-09] MEDS: ATORVASTATIN CA 40 MG TABLET (FP) PO SCH (22:13)
[2016-12-10] MEDS: LEVOFLOXACIN 500 MG TABLET (FP) PO SCH (06:08)
[2016-12-10] MEDS: HEPARIN NA (PORCINE) 5,000 UNITS/ML 1ML VIAL SQ SCH ×2 (06:08→15:35)
[2016-12-10 08:07] LABS: MCH 26.6 pg (25.7-33.7); MCHC 32.9 g/dl (32.0-36.0); MEAN CELL VOLUME 80.8 fl (80-96); MEAN PLT VOLUME 9.5 fl (7.5-11.1); PLATELET COUNT 242 K/MM3 (134-434); RDW 16.6 % (11.6-15.6); WHITE BLOOD COUNT 5.5 K/mm3 (4.0-10.0)
[2016-12-10 08:29] LABS: ANION GAP 5 (8-16); BILIRUBIN,DIRECT 0.2 mg/dL (0.0-0.2); BILIRUBIN,TOTAL 1.4 mg/dL (0.2-1.0); CALCIUM 9.3 mg/dL (8.5-10.1); CO2 29 mmol/L (21-32); CREATININE 1.1 mg/dL (0.55-1.02); GLUCOSE,RANDOM 86 mg/dL (74-106)
[2016-12-10] MEDS: LISINOPRIL 20 MG TABLET (FP) PO SCH (10:04)
[2016-12-10] MEDS: amLODIPine BESYLATE 10 MG TABLET (FP) PO SCH (10:05)
[2016-12-10] MEDS: ASPIRIN COATED 81 MG TABLET.EC PO SCH (10:05)
--- NOTE | 2016-12-10 10:51 | PN ---
Progress Note, Physician Chief Complaint: Pt is anxious; wants to go home. She denies having any symptoms. History of Present Illness: 76 y/o F with no known PMHx presents to the ER with nausea and vomiting today; she was found to have extremely high BP in ER. Patient reports one episode of bilious vomiting. She reports associated headache and abdominal pain. Per sister , patients in August and has been very sad since. Sister reports the patient seems confused; she is unsure where she is. Patient reports she is healthy and has not seen a doctor in years. Denies chest pain, SOB, dizziness. Denies fever, chills. Denies diarrhea, constipation. - Current Medication List Current Medications: Active Medications Acetaminophen (Tylenol -) 650 mg PO Q6H PRN PRN Reason: FEVER OR PAIN Amlodipine Besylate (Norvasc -) 10 mg PO DAILY [facility] Last Admin: 12/10/16 10:05 Dose: 10 mg Aspirin (Ecotrin -) 81 mg PO DAILY [facility] Last Admin: 12/10/16 10:05 Dose: 81 mg Atorvastatin Calcium (Lipitor -) 40 mg PO HS [facility] Last Admin: 12/09/16 22:13 Dose: 40 mg Heparin Sodium (Porcine) (Heparin -) 5,000 unit SQ TID [facility] Last Admin: 12/10/16 06:08 Dose: 5,000 unit Levofloxacin (Levaquin -) 500 mg PO DAILY@0600 [facility] Last Admin: 12/10/16 06:08 Dose: 500 mg Lisinopril (Prinivil) 20 mg PO DAILY [facility] Last Admin: 12/10/16 10:04 Dose: 20 mg - Objective Vital Signs: Vital Signs Temperature 98 F 12/10/16 05:19 Pulse Rate 68 12/10/16 05:19 Respiratory Rate 20 12/10/16 05:19 Blood Pressure 130/76 12/10/16 05:19 O2 Sat by Pulse Oximetry (%) 100 12/09/16 20:36 Constitutional: Yes: Anxious (denies anxiety or depression; upset now "just because I want to get home") Eyes: Yes: WNL HENT: Yes: WNL Neck: Yes: WNL Respiratory: Yes: WNL Gastrointestinal: Yes: Soft ...Rectal Exam: Yes: Deferred Genitourinary: No: Anuria Breast(s): Yes: WNL Musculoskeletal: Yes: WNL Extremities: Yes: WNL Edema: No Peripheral Pulses WNL: Yes Integumentary: Yes: WNL Neurological: Yes: WNL Psychiatric: Yes: WNL Labs: CBC, BMP 12/10/16 05:47 12/10/16 05:47 INR, PTT INR 1.04 (0.82-1.09) 12/08/16 10:14 Abnormal Lab Results 12/10/16 12/10/16 05:47 05:47 RDW 16.6 H Anion Gap 5 L BUN 29 H D Creatinine 1.1 H D Total Bilirubin 1.4 H Problem List - Problems (1) Hypertension Assessment/Plan: on amlodipine and lisinopril; BP now well-controlled. ECHO: normal LVEF; abnormal diastolic compliance. TSH WNL. Code(s): I10 - ESSENTIAL (PRIMARY) HYPERTENSION Qualifiers: Hypertension type: unspecified Qualified Code(s): I10 - Essential ( primary) hypertension (2) UTI (urinary tract infection) Code(s): N39.0 - URINARY TRACT INFECTION, SITE NOT SPECIFIED Qualifiers: Urinary tract infection type: site unspecified (3) Confusion Code(s): R41.0 - DISORIENTATION, UNSPECIFIED (4) Hyperlipidemia Assessment/Plan: very high LDL; started statin. Code(s): E78.5 - HYPERLIPIDEMIA, UNSPECIFIED (5) Bradycardia Assessment/Plan: TSH wnl. No longer bradycardic; off beta blockers.. Code(s): R00.1 - BRADYCARDIA, UNSPECIFIED
[2016-12-10 11:55] VITALS: BP 152/65; PULSE 78; TEMP 98.3
--- NOTE | 2016-12-10 13:28 | PN ---
Teaching Attending Note Name of Resident: Valentina Carter ATTENDING PHYSICIAN STATEMENT I saw and evaluated the patient. I reviewed the resident's note and discussed the case with the resident. I agree with the resident's findings and plan as documented. SUBJECTIVE: no pain , no AYALA, no visual changes OBJECTIVE: NAD CV : RRR, no delay between radial and femoral pulses LUNgs ; CTAB ext : no edema Abd : soft, NT, ND , NL BS, no bruits over the renal arteries A/P : 76 y/o lady with h/o untreated HTN , who presented with a complaints of not feeling well , and was found to have HTN emergency 1- HTN emergency , resolved - cont norvasc and lisinopril - cont ASa dur o infarcts seen on CT scan - need BMP as outpt to follow up on renal function after starting lisinopril 2- HLP: goal < 70 due to signs of chronic cerebral ischemia . - cont statin started here 3- Proteinuria , likely due to HTN. A1c 5.8 4- hyperbilirubiniemia : indirect. Probably has Gilbert's 5- metabokic encephalopathy due to HTNa nd UTI, resolved 6- UTI: cx reviewed. today is day 3 of Abx. dc dc home today . needs to establish care with PCP
--- NOTE | 2016-12-10 13:43 | DS ---
Physical Exam: SUBJECTIVE: Patient seen and examined OBJECTIVE: Vital Signs Period Temp Pulse Resp BP Sys/Luz Pulse Ox Last 24 Hr 98 F-98.5 F 68-78 18-20 119-152/62-85 100-100 PHYSICAL EXAM GENERAL: The patient is awake, alert, and fully oriented, in no acute distress. HEAD: Normal with no signs of trauma. EYES: PERRL, extraocular movements intact, sclera anicteric, conjunctiva clear. ENT: Ears normal, nares patent, oropharynx clear without exudates, moist mucous membranes. NECK: Trachea midline, full range of motion, supple. LUNGS: Breath sounds equal, clear to auscultation bilaterally, no wheezes, no crackles, no accessory muscle use. HEART: Regular rate and rhythm, no radio-femoral delays, S1, S2 without murmur , rub or gallop. ABDOMEN: Soft, nontender, nondistended, normoactive bowel sounds, no abdominal bruits over renal arteries, no guarding, no rebound, no hepatosplenomegaly, no masses. EXTREMITIES: 2+ pulses, warm, well-perfused, no edema. NEUROLOGICAL: Cranial nerves II through XII grossly intact. Normal speech, gait not observed. PSYCH: Normal mood, normal affect. SKIN: Warm, dry, normal turgor, no rashes or lesions noted. LABS Laboratory Results - last 24 hr 12/10/16 12/10/16 12/10/16 05:47 05:47 05:47 WBC 5.5 RBC 4.67 Hgb 12.4 Hct 37.8 MCV 80.8 MCH 26.6 MCHC 32.9 RDW 16.6 H Plt Count 242 MPV 9.5 Sodium 138 Potassium 4.4 Chloride 104 Carbon Dioxide 29 Anion Gap 5 L BUN 29 H D Creatinine 1.1 H D Random Glucose 86 Calcium 9.3 Total Bilirubin 1.4 H Direct Bilirubin 0.2 TSH 1.86 HOSPITAL COURSE: Date of Admission:12/08/16 Date of Discharge: 12/10/16 76 y/o lady with h/o untreated HTN , who presented with a complaints of not feeling well and reported confusion by her sister, and was found to have HTN emergency with a blood pressure on presentation of 252/[address] scan of the head showed old lacunar infarcts. She was managed with Iv Labetolol stat and continued on Lisinopril 20mg PO daily, Norvasc 10mg PO daily She was also noticed to have hyperlipidemia with Total LDL -188, HDL-78 and Cholesterol-284 For which she was placed on Lipitor 40mg PO HS for an LDL goal <70 She was also found to have uncomplicated UTI with proteinuria and a pansensitive urine culture that grew Ecoli She received iv ceftriaxone 1gm in the ED, 2 days of 500mg levaquin PO for a total of 3 days treatment. She was found to have hyperbilirubinemia : Total-1.4, indirect-1.2, and has no other evident liver enzyme elevations, so probably has Gilbert's disease. She was also found to have elevated Cr at 1.1, so she is scheduled for a repeat BMP in one week to see her PCP. At discharge her blood pressure was 130/76. Minutes to complete discharge: 44 Discharge Summary Reason For Visit: URINARY TRACT INFECTION; HYPERTENSION Current Active Problems Benign unconjugated hyperbilirubinemia (Acute) Bradycardia (Acute) Confusion (Acute) Hypertensive emergency (Acute) Hypertensive encephalopathy (Acute) UTI (urinary tract infection) (Acute) Hyperlipidemia (Chronic) Hypertension (Chronic) Condition: Good - Instructions Diet, Activity, Other Instructions: You were admitted and found to have high blood pressure that had been uncontrolled for long with evidence of past strokes . You also had very high cholesterol levels. You were also found to have a urinary tract infection. For high blood pressure: You were started on Lisinopril 20mg PO daily Norvasc 10mg PO daily For high cholesterol levels Lipitor 40mg PO daily For past strokes ASA 81 mg PO You completed treatment here for the Urinary tract infection You need blood work to check on your kidneys in 1 week as your were started on lisinopril which can initially affect the renal function You might have Gilbert's disease ( benign elevation in one of the liver enzymes ) , please follow with PMD on that Please See a Primary Care Physician in one week for follow up: You could see your sister's doctor or See Dr Valentina Carter as she is available every Wednesday at at [address] [facility] you can call [phone] and ask to speak to Dr. Valentina Carter to make an appointment or you can see your sisters doctor We will also give you Dr. Zhao's number just in case you would like to see him for primary care. It is important you follow up with someone for refills of your medications and for on going care Please do lab work in 1 week to check your kidney function If you have recurrence of your symptoms please go to the nearest emergency room Referrals: Franck Zhao MD [Staff Physician] - 1 Week Disposition: HOME - Home Medications Comprehensive Discharge Medication List: Ambulatory Orders Amlodipine Besylate [Norvasc -] 10 mg PO DAILY #30 tablet 12/10/16 Aspirin Coated [Ecotrin -] 81 mg PO DAILY #30 tab 12/10/16 Atorvastatin Ca [Lipitor] 40 mg PO HS #30 tablet 12/10/16 Lisinopril [Prinivil] 20 mg PO DAILY #30 tablet 12/10/16 Miscellaneous Drug Not In Syst [Outpatient Lab Test] 1 each ASDIR #1 misc This patient is new to me today: No Emergency Visit: Yes ED Registration Date: 12/08/16 Care time: The patient presented to the Emergency Department on the above date and was hospitalized for further evaluation of their emergent condition. Critical Care patient: No - Discharge Referral Referred to [facility] Med P.C.: No
== END 2016-12-10 15:25 | disposition home or self-care (01) | DRG 304 ==
LOC: EDBD 09:34 → JER 09:34 → JERBED 14:50 → J4W 17:00
PROVIDERS: ADMIT Internal Medicine; ATTEND Internal Medicine
PROC: B246ZZZ Ultrasonography of Right and Left Heart (ICD-10-PCS; principal; 2016-12-09)
DX: I16.0 Hypertensive urgency (principal); G93.41 Metabolic encephalopathy; N39.0 Urinary tract infection, site not specified; E78.5 Hyperlipidemia, unspecified; R00.1 Bradycardia, unspecified; Y92.231 Patient bathroom in hospital as the place of occurrence of the external cause; T44.8X5A Adverse effect of centrally-acting and adrenergic-neuron-blocking agents, initial encounter; Y92.230 Patient room in hospital as the place of occurrence of the external cause; Z86.73 Personal history of transient ischemic attack (TIA), and cerebral infarction without residual deficits; Z87.891 Personal history of nicotine dependence; Z91.14 Patient's other noncompliance with medication regimen; R81 Glycosuria; F43.21 Adjustment disorder with depressed mood; E80.6 Other disorders of bilirubin metabolism
CPT/HCPCS: 36415; 70450-TC; 71010-TC; 80048; 80053; 80061; 81003; 81015; 82247; 82248; 83036; 83721; 83735; 84100; 84443; 84484; 85025; 85027; 85610; 87086; 87186; 90688; 93005; 93010; 93306-TC; 99285-25; G0008; J1644

== ENCOUNTER 2017-03-18 08:48 | Inpatient (IN) | payer OTHER ==
[2017-03-18] MEDS ORDERED: SODIUM CHLORIDE 0.9% 1000 ML INFUS.BAG IV PRN (09:07)
[2017-03-18 09:17] VITALS: BMI 20.5
--- NOTE | 2017-03-18 09:21 | PDOC ---
History of Present Illness - General Chief Complaint: Altered Mental Status Stated Complaint: hypothermia Time Seen by Provider: 03/18/17 09:04 History Source: EMS Exam Limitations: Clinical Condition - History of Present Illness Initial Comments: This is a 77 YOF with [facility] chart history of HTN, HLD, and UTI who presents BIBA after being found down on the doorsteps outside for an unknown amount of time. EMS noted that she responded to painful stimuli but otherwise was not responsive. They were unable to get a pulse oxygenation, blood pressure, or temperature on the patient. Here in the ED the patient remains minimally responsive and is unable to provide any history. Past History - Past Medical History Allergies/Adverse Reactions: Allergies Allergy/AdvReac Type Severity Reaction Status Date / Time No Known Allergies Allergy Verified 12/08/16 09:40 Home Medications: Ambulatory Orders Amlodipine Besylate [Norvasc -] 10 mg PO DAILY #30 tablet 12/10/16 Aspirin Coated [Ecotrin -] 81 mg PO DAILY #30 tab 12/10/16 Atorvastatin Ca [Lipitor] 40 mg PO HS #30 tablet 12/10/16 Lisinopril [Prinivil] 20 mg PO DAILY #30 tablet 12/10/16 Miscellaneous Drug Not In Syst [Outpatient Lab Test] 1 each ASDIR #1 misc - Suicide/Smoking/Psychosocial Hx Smoking History: Former smoker Have you smoked in the past 12 months: No Hx Alcohol Use: No Drug/Substance Use Hx: No Substance Use Type: None Review of Systems - Review of Systems Able to Perform ROS?: No (clinical condition) *Physical Exam - Physical Exam General Appearance: Yes: Nourished, Appropriately Dressed, Other (very well- dressed, awake but not alert and minimally responsive older adult female who is shivering, arms contracted, very cold to the touch) HEENT: positive: DEDE, Normal ENT Inspection, Other (no raccoon eyes, no butt sign, no hemotympanum, no cephalohematoma, no nasal septal hematoma, no CSF rhinorrhea or otorrhea). negative: Scleral Icterus (R), Scleral Icterus (L), Nasal Congestion, Rhinorrhea Neck: positive: Trachea midline, Supple. negative: Rigid Respiratory/Chest: positive: Lungs Clear, Normal Breath Sounds. negative: Accessory Muscle Use, Labored Respiration, Crackles, Rales, Rhonchi, Stridor, Wheezing Cardiovascular: positive: Regular Rhythm, Regular Rate. negative: Edema, JVD, Murmur Gastrointestinal/Abdominal: positive: Normal Bowel Sounds, Flat, Soft. negative : Tender, Organomegaly, Pulsatile Mass, Protuberent, Hernia Lymphatic: negative: Adenopathy, Tenderness Musculoskeletal: positive: Normal Inspection, Muscle Spasm (BUE) Extremity: positive: Normal Inspection, Pelvis Stable, Coldness. negative: Cyanosis, Pedal Edema, Swelling, Erythema Integumentary: positive: Normal Color, Dry (very dry and flaky), Cold, Clammy. negative: Warm, Cyanotic, Erythema, Jaundice, Diaphoresis, Rash, Ecchymosis, Bruising Neurologic: positive: Responsive (only to pain), Other (GCS is 9). negative: Fully Oriented, Alert, Normal Response, EOM Palsy, Facial Droop ED Treatment Course - LABORATORY CBC & Chemistry Diagram: 03/18/17 09:16 03/18/17 09:16 - RADIOLOGY Radiology Studies Ordered: Category Date Time Status HEAD CT WITHOUT CONTRAST [CT] Stat CT Scan 03/18/17 09:12 Ordered CHEST X-RAY PORTABLE* [RAD] Stat Radiology 03/18/17 09:07 Ordered Medical Decision Making - Medical Decision Making 77 YOF who was found down outside after unknown amount of time, found very cold but alert, responsive only to pain. On exam VS notable for rectal temp 86.3, initially hypertensive in the 160s, HR wnl. Patient stabilized, bare-hugger placed, blankets placed, rectal temp probe placed, warmed saline drip. DDX IBNLT syncope, seizure, UTI, ACS, intoxication, etc. 03/18/17 10:15 T&S hemolyzed but will await remaining lab results to determine if re-draw is needed. 03/18/17 10:52 WBC 10.6, lactate 3.6, VBG pH 7.26, CK 1619, FREDIS with Cr 1.5 (usually 0.8-1.1 for this patient). Potassium is 5.2 but specimen slightly hemolyzed. Patient more alert, answering simple questions, cannot remember what happened this AM. Rectal probe reading temperature 92.0. *DC/Admit/Observation/Transfer Diagnosis at time of Disposition: FREDIS (acute kidney injury) Altered mental status Qualifiers: Altered mental status type: unspecified Qualified Code(s): R41.82 - Altered mental status, unspecified Hypothermia Qualifiers: Encounter type: initial encounter Qualified Code(s): T68.XXXA - Hypothermia, initial encounter Rhabdomyolysis Qualifiers: Rhabdomyolysis type: non-traumatic Qualified Code(s): M62.82 - Rhabdomyolysis - Discharge Dispostion Condition at time of disposition: Guarded Admit: Yes - Referrals - Patient Instructions - Post Discharge Activity
[2017-03-18 09:45] LABS: VENOUS PC02 51.1 mmHg (38-52); VENOUS PH 7.26 (7.32-7.42); VENOUS PO2 34.4 mmHg (28-48)
[2017-03-18 09:48] LABS: BASO % 0.5 % (0-2.0); HEMATOCRIT 42.8 % (32.4-45.2); HEMOGLOBIN 13.5 GM/dL (10.7-15.3); LYMPH % 12.2 % (8-40); MCH 25.9 pg (25.7-33.7); MCHC 31.5 g/dl (32.0-36.0); MEAN CELL VOLUME 82.3 fl (80-96); MEAN PLT VOLUME 10.3 fl (7.5-11.1); MONO % 5.6 % (3.8-10.2); NEUT % 81.7 % (42.8-82.8); PLATELET COUNT 361 K/MM3 (134-434); RDW 15.1 % (11.6-15.6); WHITE BLOOD COUNT 10.6 K/mm3 (4.0-10.0)
--- NOTE | 2017-03-18 09:56 | PDOC ---
Attending Attestation - HPI HPI: 03/18/17 09:57 Pt is a 77 yo F with a PMHx of HTN, HLD, who presents to the ED for evaluation of AMS. As per EMS, patient was found on the ground, near her porch for unknown time by her neighbor. Patients vital signs were unobtainable in field. Upon arrival, patients rectal temperature was 86.3. On evaluation, patient is unable to provide history. - Physicial Exam PE: 03/18/17 09:57 GENERAL: Awake. Alert and oriented x1. In no acute distress. +Cool to touch. HEAD: No signs of trauma EYES: PERRLA, EOMI, sclera anicteric, conjunctiva clear ENT: Auricles normal inspection, hearing grossly normal, nares patent, oropharynx clear without exudates. Moist mucosa NECK: Normal ROM, supple, no lymphadenopathy, JVD, or masses LUNGS: Breath sounds equal, clear to auscultation bilaterally. No wheezes, and no crackles HEART: Regular rate and rhythm, normal S1 and S2, no murmurs, rubs or gallops ABDOMEN: Soft, nontender, normoactive bowel sounds. No guarding, no rebound. No masses EXTREMITIES: Normal range of motion, no edema. No clubbing or cyanosis. No cords, erythema, or tenderness NEUROLOGICAL: Cranial nerves II through XII grossly intact. SKIN: Warm, Dry, normal turgor, no rashes or lesions noted. - Medical Decision Making 03/18/17 09:57 Documentation prepared by Robyn Asher, acting as medical management trainer for Art Beckham MD, MD/DO. <Robyn Asher - Last Filed: 03/18/17 09:57> - Resident Resident Name: Jessica Gil - ED Attending Attestation I have performed the following: I have examined & evaluated the patient, The case was reviewed & discussed with the resident, I agree w/resident's findings & plan, Exceptions are as noted - Critical Care Time Total Critical Care Time: 35 Critical Care Statement: The care of this patient involved high complexity decision making to prevent further life threatening deterioration of the patient 's condition and/or to evaluate & treat vital organ system(s) failure or risk of failure. - Medical Decision Making 03/18/17 09:56 A portion of this note was written by my scribe, under my supervision. 77-year-old female with history of hypertension, hyperlipidemia brought in by EMS for altered mental status and hypothermia. The patient was sitting on her neighbor porch. It was unclear how long she has been out there. She was shivering and altered. Patient unable to provide a reliable history. According to EMS, 911 was activated by the neighbor. Patient's rectal temp was 86.3. Bear hugger was applied. We'll need to investigate for source of hypothermia though I suspect external causes such as outside temperature of 16F was likely the cause. We'll rule out sepsis, metabolic disarray, neurologic. Labs, Head CT, UA, and admission to the hospital. 03/18/17 12:54 CBC, BMP 03/18/17 09:16 03/18/17 09:16 CMP Sodium 138 mmol/L (136-145) 03/18/17 09:16 Potassium 5.2 mmol/L (3.5-5.1) H 03/18/17 09:16 Chloride 104 mmol/L (98-107) 03/18/17 09:16 Carbon Dioxide 21 mmol/L (21-32) D 03/18/17 09:16 Anion Gap 13 (8-16) 03/18/17 09:16 BUN 46 mg/dL (7-18) H D 03/18/17 09:16 Creatinine 1.5 mg/dL (0.55-1.02) H D 03/18/17 09:16 Creat Clearance w eGFR 33.58 (>60) 03/18/17 09:16 POC Glucometer 109.52120 UNITS (80-120) 03/18/17 08:51 Random Glucose 104 mg/dL (74-106) D 03/18/17 09:16 Lactic Acid 1.3 mmol/L (0.4-2.0) 03/18/17 12:05 Calcium 9.9 mg/dL (8.5-10.1) 03/18/17 09:16 Phosphorus 5.6 mg/dL (2.5-4.9) H D 03/18/17 09:16 Magnesium 2.6 mg/dL (1.8-2.4) H 03/18/17 09:16 Total Bilirubin 1.1 mg/dL (0.2-1.0) H D 03/18/17 09:16 AST 64 U/L (15-37) H D 03/18/17 09:16 ALT 42 U/L (12-78) D 03/18/17 09:16 Alkaline Phosphatase 76 U/L (45-117) D 03/18/17 09:16 Creatine Kinase 1619 IU/L (26-192) H 03/18/17 09:16 Creatine Kinase Index 2.6 % (0.0-5.0) 03/18/17 09:16 CK-MB (CK-2) 43.184 ng/mL (0.5-3.6) H 03/18/17 09:16 Troponin I 0.02 ng/ml (0.00-0.05) 03/18/17 09:16 Total Protein 8.0 g/dl (6.4-8.2) D 03/18/17 09:16 Albumin 4.6 g/dl (3.4-5.0) D 03/18/17 09:[address] reviewed. No acute findings. Pt's temperature is now 97.6 degrees. Vital signs are improved. Will admit to the ICU for further monitoring. <Art Beckham - Last Filed: 03/18/17 12:55> Heart Score/ECG Review #1 ECG reviewed & interpreted by me at: 10:40 03/18/17 12:23 NSR 69, no std/zofia (poor baseline, difficult to interpret given the tremors from shivering) <Art Beckham - Last Filed: 03/18/17 12:55>
[2017-03-18 10:03] LABS: INR 1.04 (0.82-1.09); PROTHROMBIN TIME (PATIENT) 11.7 SEC (9.98-11.88)
[2017-03-18 10:06] LABS: ACTIVATED PTT 27.9 SECONDS (26.9-34.4); ALBUMIN 4.6 g/dl (3.4-5.0); ANION GAP 13 (8-16); BILIRUBIN,TOTAL 1.1 mg/dL (0.2-1.0); BLOOD UREA NITROGEN 46 mg/dL (7-18); CALCIUM 9.9 mg/dL (8.5-10.1); CHLORIDE 104 mmol/L (98-107); CO2 21 mmol/L (21-32); CREATININE 1.5 mg/dL (0.55-1.02); GLUCOSE,RANDOM 104 mg/dL (74-106); PHOSPHOROUS 5.6 mg/dL (2.5-4.9); SGPT/ALT 42 U/L (12-78); SODIUM 138 mmol/L (136-145)
[2017-03-18 10:08] LABS: POTASSIUM 5.2 mmol/L (3.5-5.1)
[2017-03-18 10:19] LABS: ALK PHOS 76 U/L (45-117)
[2017-03-18 10:20] LABS: MAGNESIUM 2.6 mg/dL (1.8-2.4); SGOT/AST 64 U/L (15-37)
[2017-03-18 11:18] LABS: URINE APPEARANCE SLCLOUDY; URINE BILIRUBIN NEGATIVE (NEGATIVE); URINE BLOOD 2+ (NEGATIVE); URINE COLOR YELLOW; URINE GLUCOSE (UA) NEGATIVE (NEGATIVE); URINE KETONE TRACE (NEGATIVE); URINE LEUK ESTERASE NEGATIVE (NEGATIVE); URINE NITRITE NEGATIVE (NEGATIVE); URINE UROBILINOGEN NEGATIVE mg/dL (0.2-1.0)
[2017-03-18 11:20] LABS: URINE PROTEIN 2+ (NEGATIVE)
[2017-03-18 11:21] LABS: EPI CELLS RARE /HPF (FEW); URINE BACTERIA RARE /hpf (NONE SEEN); URINE HYALINE CAST 15 /lpf; URINE MUCUS FEW
--- NOTE | 2017-03-18 12:30 | EKG ---
Test Reason : Blood Pressure : / mmHG Vent. Rate : 069 BPM Atrial Rate : 069 BPM P-R Int : 140 ms QRS Dur : 082 ms QT Int : 496 ms P-R-T Axes : 077 -05 006 degrees QTc Int : 531 ms POOR DATA QUALITY, INTERPRETATION MAY BE ADVERSELY AFFECTED NORMAL SINUS RHYTHM SEPTAL INFARCT , AGE UNDETERMINED T WAVE ABNORMALITY, CONSIDER ANTEROLATERAL ISCHEMIA ABNORMAL ECG WHEN COMPARED WITH ECG OF 08-DEC-2016 10:20, T WAVE INVERSION MORE EVIDENT IN ANTERIOR LEADS QT HAS LENGTHENED Confirmed by MICHAEL CALLOWAY, TEVIN ([id number]) on 03/18/2017 12:30:29 PM Referred By: Confirmed By:TEVIN RODRIGUEZ MD
--- NOTE | 2017-03-18 13:07 | EKG ---
Test Reason : Blood Pressure : / mmHG Vent. Rate : 078 BPM Atrial Rate : 078 BPM P-R Int : 158 ms QRS Dur : 082 ms QT Int : 402 ms P-R-T Axes : 070 -30 -28 degrees QTc Int : 458 ms NORMAL SINUS RHYTHM LEFT AXIS DEVIATION ABNORMAL ECG WHEN COMPARED WITH ECG OF 18-MAR-2017 10:38, CRITERIA FOR SEPTAL INFARCT ARE NO LONGER PRESENT ST NO LONGER DEPRESSED IN ANTERIOR LEADS QT HAS SHORTENED Confirmed by TEVIN RODRIGUEZ MD ([id number]) on 03/18/2017 1:07:31 PM Referred By: Confirmed By:TEVIN RODRIGUEZ MD
--- NOTE | 2017-03-18 13:36 | HP ---
CHIEF COMPLAINT: patient found outside minimally responsive PCP: HISTORY OF PRESENT ILLNESS: Patient is a 77 year old female with a past medical history of hypertension, hyperlipidemia and UTI. She was brought into the ER today via ambulance after being found on the doorsteps outside for unknown amount of time. EMS noted that she responded to painful stimuli but otherwise was not responsive. They were unable to get a pulse oxygenation, blood pressure, or temperature in the field. In the ED the patient remained minimally responsive and was unable to provide any history and was found to have a rectal temperature of 86.3f, and initially hypertensive in the 160s. Warm saline was drip was initiated, nadiya hugger blanket placed with rectal probe monitor. Patient is now able to state her name, and is more alert but remains lethargic. Her speech is slightly slurred. She does not recall the events that led her up to the hospitalization. She denies chest pain or shortness of breath. She denies any drug use, alcohol use or any new medications. Patient may have had a neurological episode vs. ACS or possible due to intoxication or drug use?. Sepsis workup initiated as well. On admission her lactic acid was 3.6, temp 86.3 rectal, her CK was 1619 and bun/creat of 45/1.5. ER course was notable for: (1) CK 1619 (2) FREDIS 46/1.5 (3) K. 5.2 (4) EKG NSR: st&t wave abnormality, consider ant. ischemia (5) head ct: cerebral atrophy, chronic small ves. ishemia (6) left upper lobe infiltrate developing on chest xray Recent Travel: PAST MEDICAL HISTORY: hypertension, hyperlipidemia and UTI. PAST SURGICAL HISTORY: Social History: Smoking: denies Alcohol: denies Drugs: denies Family History: Allergies No Known Allergies Allergy (Verified 12/08/16 09:40) HOME MEDICATIONS: Home Medications Medication Instructions Recorded Amlodipine Besylate [Norvasc -] 10 mg PO DAILY #30 tablet 12/10/16 Aspirin Coated [Ecotrin -] 81 mg PO DAILY #30 tab 12/10/16 Atorvastatin Ca [Lipitor] 40 mg PO HS #30 tablet 12/10/16 Lisinopril [Prinivil] 20 mg PO DAILY #30 tablet 12/10/16 Miscellaneous Drug Not In Syst 1 each ASDIR #1 misc 12/10/16 [Outpatient Lab Test] REVIEW OF SYSTEMS CONSTITUTIONAL: Absent: fever HEENT: Absent: rhinorrhea, nasal congestion, throat pain, throat swelling, difficulty swallowing, mouth swelling, ear pain, eye pain, visual changes CARDIOVASCULAR: Absent: chest pain RESPIRATORY: Absent: cough, shortness of breath, dyspnea with exertion, orthopnea, wheezing, stridor, hemoptysis GASTROINTESTINAL: Absent: abdominal pain, abdominal distension, nausea, vomiting, diarrhea, constipation, melena, hematochezia GENITOURINARY: Absent: dysuria, frequency, urgency, hesitancy, hematuria, flank pain, genital pain MUSCULOSKELETAL: Absent: myalgia, arthralgia, joint swelling, back pain, neck pain SKIN: Absent: rash, itching, pallor HEMATOLOGIC/IMMUNOLOGIC: Absent: easy bleeding, easy bruising, lymphadenopathy, frequent infections ENDOCRINE: Absent: unexplained weight gain, unexplained weight loss, heat intolerance, cold intolerance NEUROLOGIC: Absent: headache, focal weakness or paresthesias, dizziness, unsteady gait, seizure, mental status changes, bladder or bowel incontinence PHYSICAL EXAMINATION Vital Signs - 24 hr 03/18/17 03/18/17 03/18/17 09:11 10:04 12:05 Temperature 83.6 F L 90.9 F L 95.6 F L Pulse Rate 67 70 Pulse Rate [ 70 81 Left Apical] Respiratory 14 16 18 Rate Blood Pressure 161/90 134/77 Blood Pressure 134/77 171/85 [Right Arm] O2 Sat by Pulse 100 96 98 Oximetry (%) GENERAL: Awake, but remains lethargic, disheveled HEAD: Normal with no signs of trauma, head ct noted EYES: Pupils equal, reactive to light EARS, NOSE, THROAT: Ears normal, nares patent, oropharynx clear without exudates. dry mucous membranes. NECK: Normal range of motion, supple without lymphadenopathy, JVD, or masses. LUNGS: diminished breath sounds anteriorly, left lung posterior with dim. breath sounds HEART: Regular rate and rhythm on classroom monitor ABDOMEN: Soft, nontender, not distended, normoactive bowel sounds, no guarding, no rebound, no masses. No hepatomegaly or splenomegaly. MUSCULOSKELETAL: Normal range of motion at all joints. No bony deformities or tenderness. No CVA tenderness. UPPER EXTREMITIES: Right hand mild redness on 5th digit, normal ROM LOWER EXTREMITIES: No peripheral edema. NEUROLOGICAL: Speech slightly slurred, more alert, remains lethargic, facial symmetry PSYCHIATRIC: Cooperative SKIN: Warm, dry, normal turgor, no rashes or lesions noted, normal capillary refill. Laboratory Results - last 24 hr 03/18/17 03/18/17 03/18/17 08:51 09:16 09:16 WBC 10.6 H D RBC 5.20 Hgb 13.5 Hct 42.8 MCV 82.3 MCH 25.9 MCHC 31.5 L RDW 15.1 Plt Count 361 D MPV 10.3 Neutrophils % 81.7 Lymphocytes % 12.2 D Monocytes % 5.6 Eosinophils % 0.0 D Basophils % 0.5 PT with INR 11.70 INR 1.04 PTT (Actin FS) 27.9 VBG pH POC VBG pCO2 POC VBG pO2 Mixed VBG HCO3 Sodium Potassium Chloride Carbon Dioxide Anion Gap BUN Creatinine Creat Clearance w eGFR POC Glucometer 109.37918 Random Glucose Lactic Acid Calcium Phosphorus Magnesium Total Bilirubin AST ALT Alkaline Phosphatase Creatine Kinase Creatine Kinase Index CK-MB (CK-2) Troponin I Total Protein Albumin Urine Color Urine Appearance Urine pH Ur Specific [place] Urine Protein Urine Glucose (UA) Urine Ketones Urine Blood Urine Nitrite Urine Bilirubin Urine Urobilinogen Urine WBC (Auto) Urine RBC (Auto) Ur Epithelial Cells Urine Bacteria Hyaline Casts Urine Mucus Alcohol, Quantitative Blood Type Antibody Screen 03/18/17 03/18/17 03/18/17 09:16 09:16 09:16 WBC RBC Hgb Hct MCV MCH MCHC RDW Plt Count MPV Neutrophils % Lymphocytes % Monocytes % Eosinophils % Basophils % PT with INR INR PTT (Actin FS) VBG pH 7.26 L POC VBG pCO2 51.1 POC VBG pO2 34.4 Mixed VBG HCO3 22.0 Sodium 138 Potassium 5.2 H Chloride 104 Carbon Dioxide 21 D Anion Gap 13 BUN 46 H D Creatinine 1.5 H D Creat Clearance w eGFR 33.58 POC Glucometer Random Glucose 104 D Lactic Acid 3.6 H* Calcium 9.9 Phosphorus 5.6 H D Magnesium 2.6 H Total Bilirubin 1.1 H D AST 64 H D ALT 42 D Alkaline Phosphatase 76 D Creatine Kinase 1619 H Creatine Kinase Index 2.6 CK-MB (CK-2) 43.184 H Troponin I 0.02 Total Protein 8.0 D Albumin 4.6 D Urine Color Urine Appearance Urine pH Ur Specific [place] Urine Protein Urine Glucose (UA) Urine Ketones Urine Blood Urine Nitrite Urine Bilirubin Urine Urobilinogen Urine WBC (Auto) Urine RBC (Auto) Ur Epithelial Cells Urine Bacteria Hyaline Casts Urine Mucus Alcohol, Quantitative Blood Type Antibody Screen 03/18/17 03/18/17 03/18/17 09:16 11:00 11:43 WBC RBC Hgb Hct MCV MCH MCHC RDW Plt Count MPV Neutrophils % Lymphocytes % Monocytes % Eosinophils % Basophils % PT with INR INR PTT (Actin FS) VBG pH POC VBG pCO2 POC VBG pO2 Mixed VBG HCO3 Sodium Potassium Chloride Carbon Dioxide Anion Gap BUN Creatinine Creat Clearance w eGFR POC Glucometer Random Glucose Lactic Acid Calcium Phosphorus Magnesium Total Bilirubin AST ALT Alkaline Phosphatase Creatine Kinase Creatine Kinase Index CK-MB (CK-2) Troponin I Total Protein Albumin Urine Color Yellow Urine Appearance Slcloudy Urine pH 5.0 D Ur Specific [place] 1.017 Urine Protein 2+ H Urine Glucose (UA) Negative Urine Ketones Trace H Urine Blood 2+ H Urine Nitrite Negative Urine Bilirubin Negative Urine Urobilinogen Negative Urine WBC (Auto) 1 Urine RBC (Auto) 2 Ur Epithelial Cells Rare Urine Bacteria Rare Hyaline Casts 15 Urine Mucus Few Alcohol, Quantitative < 5.0 Blood Type Cancelled Antibody Screen Cancelled 03/18/17 12:05 WBC RBC Hgb Hct MCV MCH MCHC RDW Plt Count MPV Neutrophils % Lymphocytes % Monocytes % Eosinophils % Basophils % PT with INR INR PTT (Actin FS) VBG pH POC VBG pCO2 POC VBG pO2 Mixed VBG HCO3 Sodium Potassium Chloride Carbon Dioxide Anion Gap BUN Creatinine Creat Clearance w eGFR POC Glucometer Random Glucose Lactic Acid 1.3 Calcium Phosphorus Magnesium Total Bilirubin AST ALT Alkaline Phosphatase Creatine Kinase Creatine Kinase Index CK-MB (CK-2) Troponin I Total Protein Albumin Urine Color Urine Appearance Urine pH Ur Specific [place] Urine Protein Urine Glucose (UA) Urine Ketones Urine Blood Urine Nitrite Urine Bilirubin Urine Urobilinogen Urine WBC (Auto) Urine RBC (Auto) Ur Epithelial Cells Urine Bacteria Hyaline Casts Urine Mucus Alcohol, Quantitative Blood Type Antibody Screen ASSESSMENT/PLAN: Patient is a 77 year old female with a past medical history of hypertension, hyperlipidemia and UTI. She was brought into the ER today via ambulance after being found on the doorsteps outside for unknown amount of time. EMS noted that she responded to painful stimuli but otherwise was not responsive. They were unable to get a pulse oxygenation, blood pressure, or temperature in the field. In the ED the patient remained minimally responsive and was unable to provide any history and was found to have a rectal temperature of 86.3f, and initially hypertensive in the 160s. Warm saline was drip was initiated, nadiya hugger blanket placed with rectal probe monitor. Patient is now able to state her name, and is more alert but remains lethargic. Her speech is slightly slurred. She does not recall the events that led her up to the hospitalization. She denies chest pain or shortness of breath. She denies any drug use, alcohol use or any new medications. Patient may have had a neurological episode vs. ACS or possible due to intoxication or drug use?. Sepsis workup initiated as well. On admission her lactic acid was 3.6, temp 86.3 rectal, her CK was 1619 and bun/creat of 45/1.5. Her chest xray shows a developing left lung infiltrate. Neuro: Possible syncope/AMS/Rule out seizure Head CT negative, shows cerebral atrophy, chronic small vascular ischemia Brain MRI as pt neuro status is still not at baseline Monitor neuro status Utox pending Neuro consult for AMS EEG as per neuro ID: Sepsis rule out Hypothermia, bradycardia in the 60s with AMS with lactic acidosis Lactic acidosis resolved after fluid bolus Nadiya hugger and warm saline given in ED, rectal temp now 98.3f Blood and urine cultures sent Ceftriaxone 1gram now Pulmonary: Chest xray with possible developing left lung infiltrate Ceftriaxone 1gm ordered Monitor respiratory status Cardiology Rule out ACS EKG with st/t wave abnormality, consider ant ischemia Trend troponins Lipid panel, [id number] ordered Monitor on tele Cardiology consult Renal FREDIS/Rhabdo Bun 46/1.5 on admission with CPK 1619 NS @ 100cc/hr Urine myoglobin ordered Hyperkalemia K. 5.2, repeat cmp today F.E.N. Fluids: IVF @ 100cc/hr Electrolytes: monitor cmp Nutrition: NPO until swallow eval Prophylaxis: DVT: Heparin TID GI: Protonix IV 40mg daily Disposition. ICU admission, full code Visit type - Emergency Visit Emergency Visit: Yes ED Registration Date: 03/18/17 Care time: The patient presented to the Emergency Department on the above date and was hospitalized for further evaluation of their emergent condition. - New Patient This patient is new to me today: Yes Date on this admission: 03/19/17 - Critical Care Critical Care patient: Yes Total Critical Care Time (in minutes): 60 Critical Care Statement: The care of this patient involved high complexity decision making to prevent further life threatening deterioration of the patient 's condition and/or to evaluate & treat vital organ system(s) failure or risk of failure.
[2017-03-18] MEDS ORDERED: CEFTRIAXONE 1 G/50 ML PREMIX 50 ML IVPB ONE (15:30)
[2017-03-18 15:45] LABS: CHOLESTEROL 191 mg/dL (50-200); HDL CHOLESTEROL 60 mg/dL (40-60); LDL CHOLESTEROL (ONLY SJRH) 117 mg/dL (5-100); TRIGLYCERIDES 44 mg/dL (35-160)
[2017-03-18] MEDS: SODIUM CHLORIDE 1,000 ML IV SCH (16:02)
[2017-03-18] MEDS ORDERED: CEFTRIAXONE 1 GM/50 ML BAG ONE (16:33)
--- NOTE | 2017-03-18 17:22 | CON.CARD ---
Cardiology Consult (text) - Consultation Consultation Note: CC: syncope/arrest 77 y/o with h/o htn (c/b htn urgency admit 11/2016), chronic lacunar infarcts, HL presents to ER after being found down outside for unknown amount of time/ hypothermic on presentation. found down on the doorsteps outside for an unknown amount of time. EMS noted that she responded to painful stimuli but otherwise was not responsive. They were unable to get a pulse oxygenation, blood pressure, or temperature on the patient. In ER hypothermic --> rewarmed. Mental status now improving but remains confused. only alert and oriented x 1. denies prior hx of syncope. Denies cp, sob, orthopnea, pnd, le edema, palps, dizziness, bleeding, pmhx/pshx: per hpi social hx: Former smoker fam hx: unable to obtain ros: per hpi, + chills, no fevers, chills. n/v/d, abd pain, h/a, cough, congestion. Ambulatory Orders Amlodipine Besylate [Norvasc -] 10 mg PO DAILY #30 tablet 12/10/16 Aspirin Coated [Ecotrin -] 81 mg PO DAILY #30 tab 12/10/16 Atorvastatin Ca [Lipitor] 40 mg PO HS #30 tablet 12/10/16 Lisinopril [Prinivil] 20 mg PO DAILY #30 tablet 12/10/16 Miscellaneous Drug Not In Syst [Outpatient Lab Test] 1 each ASDIR #1 misc Current Medications Chlorhexidine Gluconate (Hibiclens For Decolonization -) 1 applic TP HS [facility] Sodium Chloride (Normal Saline -) 1,000 mls @ 100 mls/hr IV ASDIR EARL Last Admin: 03/18/17 16:02 Dose: 100 mls/hr Mupirocin (Bactroban Ointment (For Decolonization) -) 1 applic NS BID EARL Stop: 03/23/17 21:59 Vital Signs - 24 hr 03/18/17 03/18/17 03/18/17 09:11 10:04 12:05 Temperature 83.6 F L 90.9 F L 95.6 F L Pulse Rate 67 70 Pulse Rate [ 70 81 Left Apical] Respiratory 14 16 18 Rate Blood Pressure 161/90 134/77 Blood Pressure 134/77 171/85 [Right Arm] O2 Sat by Pulse 100 96 98 Oximetry (%) 03/18/17 03/18/17 14:59 16:04 Temperature 98.8 F 98.0 F Pulse Rate Pulse Rate [ 81 71 Left Apical] Respiratory 16 16 Rate Blood Pressure Blood Pressure 161/75 154/75 [Right Arm] O2 Sat by Pulse 98 97 Oximetry (%) Intake & Output 03/16/17 03/17/17 03/18/17 03/19/17 07:59 07:59 07:59 07:59 Intake Total 1000 Balance 1000 Weight 120 lb NAD, alert not oriented JVD flat, neck supple tachycardic, regular nl s1, s2 2/6 murmur at lsb. nd pmi ctab, nl effort + bs soft nt nd ext without e/c/c + dp/pt aaox1 no carotid bruits no jaundice, diaphoresis CBC, BMP 03/18/17 09:16 03/18/17 09:16 Laboratory Tests 12/10/16 03/18/17 03/18/17 05:47 09:16 09:16 Creatinine 1.1 H D Hemoglobin A1c % Lactic Acid 3.6 H* Magnesium 2.6 H Total Bilirubin 1.1 H D AST 64 H D ALT 42 D Alkaline Phosphatase 76 D Creatine Kinase 1619 H Creatine Kinase Index 2.6 CK-MB (CK-2) 43.184 H Troponin I 0.02 Albumin 4.6 D Triglycerides Cholesterol Total LDL Cholesterol HDL Cholesterol TSH Alcohol, Quantitative 03/18/17 03/18/17 03/18/17 11:43 12:05 15:15 Creatinine Hemoglobin A1c % Lactic Acid 1.3 Magnesium Total Bilirubin AST ALT Alkaline Phosphatase Creatine Kinase Creatine Kinase Index CK-MB (CK-2) Troponin I Albumin Triglycerides Cholesterol Total LDL Cholesterol HDL Cholesterol TSH 1.02 D Alcohol, Quantitative < 5.0 03/18/17 03/18/17 15:15 15:15 Creatinine Hemoglobin A1c % 5.9 D Lactic Acid Magnesium Total Bilirubin AST ALT Alkaline Phosphatase Creatine Kinase Creatine Kinase Index CK-MB (CK-2) Troponin I Albumin Triglycerides 44 D Cholesterol 191 D Total LDL Cholesterol 117 H HDL Cholesterol 60 D TSH Alcohol, Quantitative ekg: nsr, lad. non-specific diffuse t wave abnormalities slightly more prominent than on priors. tele: SR, sinus tach cxr: developing CHRIS infiltrate. head ct: diffuse cerebral atrophy. chronic small vessel ischemia echo 11/2016: nl lv/rv size/fn. mod nia. mod MR (eccentric). mod tr 77 y/o with h/o htn (c/b htn urgency admit 11/2016), chronic lacunar infarcts, HL presents to ER after being found down outside for unknown amount of time/ hypothermic on presentation. syncope/hypothermia - patient found down outside, possible syncope. utox negative. - echo, tele monitoring. infectious work up per pm - head ct no acute pathology - s/p rewarming. mgm't per pmd/critical care - mgm't of hyperkalemia/rhabdo per pmd - con't hiwot. EKG changes non-specific in setting of hypothermia and lyte abnormalities. htn - currently slightly elevated, would resume home amlodipine. hold home lisinopril while hyperkalemic. - will likely need ongoing uptitration of regimen as clinical status improves. hl - hold statin while rhabdo rhabdo - IVF as needed per pmd.
--- NOTE | 2017-03-18 18:07 | CON.NEURO ---
Consult - History of Present Illness History of Present Illness: 77 year old female with a past medical history of hypertension, hyperlipidemia and UTI. She was brought into the ER today via ambulance after being found on the doorsteps outside for unknown amount of time. EMS noted that she responded to painful stimuli but otherwise was not responsive. In the ED the patient remained minimally responsive and was unable to provide any history and was found to have a rectal temperature of 86.3f, and initially hypertensive in the 160s. Warm saline was drip was initiated, warming blanket placed She denies chest pain or shortness of breath. She denies any drug use, alcohol use or any new medications. pt poor hx --though states she lives with sister. denies AYALA, neck pain, or focal weakness, numbness. LABS: lactic acid was 3.6, temp 86.3 rectal, her CK was 1619 and bun/creat of 45 /1.5. tox (-), TSH NL , elevated CPK MRI BRAIN : right pontine lacune chronic and severe white matter changes (prelim ) ; no acute CVA - History Source History Provided By: Medical Record - Alcohol/Substance Use Hx Alcohol Use: No - Smoking History Smoking history: Former smoker Have you smoked in the past 12 months: No Home Medications - Allergies Allergies/Adverse Reactions: Allergies Allergy/AdvReac Type Severity Reaction Status Date / Time No Known Allergies Allergy Verified 12/08/16 09:40 - Home Medications Home Medications: Ambulatory Orders Amlodipine Besylate [Norvasc -] 10 mg PO DAILY #30 tablet 12/10/16 Aspirin Coated [Ecotrin -] 81 mg PO DAILY #30 tab 12/10/16 Atorvastatin Ca [Lipitor] 40 mg PO HS #30 tablet 12/10/16 Lisinopril [Prinivil] 20 mg PO DAILY #30 tablet 12/10/16 Miscellaneous Drug Not In Syst [Outpatient Lab Test] 1 each ASDIR #1 misc Physical Exam-Neuro Vital Signs: Vital Signs Temperature 98.3 F 03/18/17 17:59 Pulse Rate 114 H 03/18/17 17:59 Respiratory Rate 16 03/18/17 17:59 Blood Pressure 135/96 03/18/17 17:59 O2 Sat by Pulse Oximetry (%) 97 03/18/17 17:59 Constitutional: Yes: Well Nourished Labs: CBC, BMP 03/18/17 09:16 03/18/17 09:16 INR, PTT INR 1.04 (0.82-1.09) 03/18/17 09:16 - Neuro Exam Level Of Consciousness: Yes: Alert (awake , knows hospital and yr; when asked how old states "38"; follows 2 steps, EOMI, R eye ptosis, no facial, motor: no drift, no focal weakness, plantars down; ) Gait: Deferred Imaging - Results MRI: Report Reviewed, Image Reviewed Problem List - Problems (1) Altered mental status Code(s): R41.82 - ALTERED MENTAL STATUS, UNSPECIFIED Qualifiers: Altered mental status type: unspecified Qualified Code(s): R41.82 - Altered mental status, unspecified (2) Hypothermia Code(s): T68.XXXA - HYPOTHERMIA, INITIAL ENCOUNTER Qualifiers: Encounter type: initial encounter Qualified Code(s): T68.XXXA - Hypothermia , initial encounter Assessment/Plan 77 year old female with a past medical history of hypertension, hyperlipidemia - presents for confusion/ ; found to be hypothermic , ? mild rhabdo-- appears to improving after warming; though may have underlying dementia--severe white matter changes on MR--unclear etiology --hypertenisve ?; denies ETOH or toxic habits; UA/TSH and tox (-); slightly elevated WBC -- no clinical evidence of seizure or meningitis. ID NESTOR Lombardi PNA -on ABX FU lytes/LFTS and CPK. will speak to family re baseline. will clinically follow thanks Dr Olivera
[2017-03-18 19:08] LABS: ALBUMIN 3.6 g/dl (3.4-5.0); ALK PHOS 60 U/L (45-117); ANION GAP 14 (8-16); BILIRUBIN,TOTAL 0.9 mg/dL (0.2-1.0); BLOOD UREA NITROGEN 38 mg/dL (7-18); CALCIUM 8.5 mg/dL (8.5-10.1); CHLORIDE 108 mmol/L (98-107); CO2 20 mmol/L (21-32); CREATININE 1.1 mg/dL (0.55-1.02); GLUCOSE,RANDOM 66 mg/dL (74-106); SGOT/AST 75 U/L (15-37); SGPT/ALT 38 U/L (12-78); SODIUM 142 mmol/L (136-145); TOT PROT 6.2 g/dl (6.4-8.2)
[2017-03-18 19:15] LABS: COCAINE, UR NEGATIVE ng/ml (CUTOFF=300); METHADONE, UR NEGATIVE ng/ml (CUTOFF=300); OPIATES, URI NEGATIVE ng/ml (CUTOFF=300); PHENCYCLIDINE,URINE NEGATIVE ng/ml (CUTOFF=25); URINE AMPHETAMINES NEGATIVE ng/ml (CUTOFF=500); URINE BARBITURATES NEGATIVE ng/ml (CUTOFF=200); URINE BENZODIAZEPINES NEGATIVE ng/ml (CUTOFF=200)
--- NOTE | 2017-03-18 19:32 | CON.ID ---
Consult Consult Specialty:: infectious diseases Reason for Consultation:: hypothermia,pneumonia,confusion - History of Present Illness History of Present Illness: 77 year old female with a past medical history of hypertension, hyperlipidemia and UTI. She was brought into the ER today via ambulance after being found on the doorsteps outside for unknown amount of time. EMS noted that she responded to painful stimuli but otherwise was not responsive. They were unable to get a pulse oxygenation, blood pressure, or temperature in the field. In the ED the patient remained minimally responsive and was unable to provide any history and was found to have a rectal temperature of 86.3f, and initially hypertensive in the 160s. Warm saline was drip was initiated, nadiya hugger blanket placed with rectal probe monitor. Patient is now able to state her name, and is more alert but remains lethargic. Her speech is slightly slurred. She does not recall the events that led her up to the hospitalization. She denies chest pain or shortness of breath. She denies any drug use, alcohol use or any new medications. the above was history taken from charts as patient is not able to give any history patient has slurred speech - History Source History Provided By: Medical Record Limitations to Obtaining History: Clinical Condition - Alcohol/Substance Use Hx Alcohol Use: No - Smoking History Smoking history: Former smoker Have you smoked in the past 12 months: No Home Medications - Allergies Allergies/Adverse Reactions: Allergies Allergy/AdvReac Type Severity Reaction Status Date / Time No Known Allergies Allergy Verified 12/08/16 09:40 - Home Medications Home Medications: Ambulatory Orders Amlodipine Besylate [Norvasc -] 10 mg PO DAILY #30 tablet 12/10/16 Aspirin Coated [Ecotrin -] 81 mg PO DAILY #30 tab 12/10/16 Atorvastatin Ca [Lipitor] 40 mg PO HS #30 tablet 12/10/16 Lisinopril [Prinivil] 20 mg PO DAILY #30 tablet 12/10/16 Miscellaneous Drug Not In Syst [Outpatient Lab Test] 1 each ASDIR #1 misc Review of Systems Unable to obtain ROS, reason: unable to obtain Physical Exam Vital Signs: Vital Signs Temperature 98.3 F 03/18/17 18:16 Pulse Rate 112 H 03/18/17 18:16 Respiratory Rate 16 03/18/17 18:16 Blood Pressure 169/65 12/28/17 18:16 O2 Sat by Pulse Oximetry (%) 98 03/18/17 18:16 Constitutional: Yes: No Distress, Calm Cardiovascular: Yes: Regular Rate and Rhythm Respiratory: Yes: Regular, CTA Bilaterally Gastrointestinal: Yes: Normal Bowel Sounds, Soft Musculoskeletal: Yes: WNL Extremities: Yes: WNL Neurological: Yes: Alert, Confusion Psychiatric: Yes: Alert Labs: CBC, BMP 03/18/17 09:16 03/18/17 18:17 Imaging - Results Chest X-ray: Report Reviewed, Image Reviewed Cat Scan: Report Reviewed, Image Reviewed Assessment/Plan - Problems (1) Altered mental status Code(s): R41.82 - ALTERED MENTAL STATUS, UNSPECIFIED Qualifiers: Altered mental status type: unspecified Qualified Code(s): R41.82 - Altered mental status, unspecified (2) Hypothermia Code(s): T68.XXXA - HYPOTHERMIA, INITIAL ENCOUNTER Qualifiers: Encounter type: initial encounter Qualified Code(s): T68.XXXA - Hypothermia , initial encounter patient after evaluating i am sure patient might have rhabdo neuro note noted plan will start patient on ceftriaxone do not see any conclusive evidence of infection at thistime patient going for mri will see how patient behaves tomorrow
[2017-03-18] MEDS ORDERED: MUPIROCIN 2% TOPICAL OINTMENT FOR DECOLONIZATION NS SCH (22:00)
[2017-03-18] MEDS ORDERED: CHLORHEXIDINE GLUCONATE 4% CLEANSER FOR DECOLONIZATION TP SCH (22:00)
[2017-03-19] MEDS: SODIUM CHLORIDE 1,000 ML IV SCH (04:46)
[2017-03-19 07:28] LABS: BASO % 0.6 % (0-2.0); EOS % 0.3 % (0-4.5); HEMOGLOBIN 9.9 GM/dL (10.7-15.3); LYMPH % 15.1 % (8-40); MCHC 32.1 g/dl (32.0-36.0); MEAN CELL VOLUME 81.1 fl (80-96); MEAN PLT VOLUME 9.5 fl (7.5-11.1); MONO % 8.8 % (3.8-10.2); NEUT % 75.2 % (42.8-82.8); PLATELET COUNT 224 K/MM3 (134-434); RBC 3.82 M/mm3 (3.60-5.2); RDW 15.2 % (11.6-15.6); WHITE BLOOD COUNT 6.6 K/mm3 (4.0-10.0)
[2017-03-19 08:46] LABS: CHLORIDE 109 mmol/L (98-107); POTASSIUM 3.8 mmol/L (3.5-5.1); SODIUM 140 mmol/L (136-145)
[2017-03-19 08:53] LABS: ALBUMIN 2.9 g/dl (3.4-5.0); ALK PHOS 50 U/L (45-117); ANION GAP 9 (8-16); BILIRUBIN,TOTAL 0.7 mg/dL (0.2-1.0); BLOOD UREA NITROGEN 26 mg/dL (7-18); CALCIUM 8.1 mg/dL (8.5-10.1); CO2 22 mmol/L (21-32); CREATININE 0.9 mg/dL (0.55-1.02); GLUCOSE,RANDOM 74 mg/dL (74-106); SGOT/AST 82 U/L (15-37); SGPT/ALT 38 U/L (12-78); TOT PROT 5.2 g/dl (6.4-8.2)
--- NOTE | 2017-03-19 09:37 | CONSULT ---
Admitting History and Physical - Primary Care Physician PCP: Lenore Bernabe - Admission History of Present Illness: Per emr: Patient is a 77 year old female with a past medical history of hypertension, hyperlipidemia and UTI. She was brought into the ER today via ambulance after being found on the doorsteps outside for unknown amount of time. EMS noted that she responded to painful stimuli but otherwise was not responsive. They were unable to get a pulse oxygenation, blood pressure, or temperature in the field. In the ED the patient remained minimally responsive and was unable to provide any history and was found to have a rectal temperature of 86.3f, and initially hypertensive in the 160s. Warm saline was drip was initiated, nadiya hugger blanket placed with rectal probe monitor. MRI includes Acute r thalamic infarct History Source: Medical Record Limitations to Obtaining History: Clinical Condition (Not oriented to place, date,age. Unable to retain information after 1 minute without distraction.) - Smoking History Smoking history: Never smoked Have you smoked in the past 12 months: No - Alcohol/Substance Use Hx Alcohol Use: No History - Admission Reason For Visit: ACUTE KIDNEY INJURY, HYPOTHERMIA, RHABDOMYOLYSIS, - Diagnostics MRI: Report Reviewed (small acute r thalamic, chronic r pontine infarcts) - General Mental Status: Awake and Alert, Able to Follow Commands, Forgetful, Vague, Flat Affect Attention: Distractible, Mild Impairment Ability to Follow Directions: Fair Head/Neck Control: Good - Hearing Hearing: Functional Speech Evaluation - Communication Primary Language: FILIPINO Communication: Yes: Within Normal Limits Oral Expression Ability: Yes: No Impairment - Speech Production Able to Make Needs Known: Yes: WNL Intelligibility: Yes: WNL - Speech Characteristics Voice Loudness: Normal, Limited Variation Voice Pitch: Yes: Normal, Excessive Variation Voice Phonatory-based Quality: Yes: Normal Speech Pattern: Normal Speech Clarity: < 100% Nasal Resonance: Normal Rate of Speech: Intact - Language/Auditory Comprehension Follows: Yes: 1 Stage Simple Commands Observation: Able to respond to yes/no queries: Yes, Yes/No Confusion: No, Comprehends Conversational Speech: Yes, Benefits from Slow Speech: Yes, Benefits from Repetiton: Yes - Language/Verbal Expression Able to Communicate Wants and Needs: Yes: WNL Functional Communication Status: Yes: WNL - Memory/Perception Short Term Memory: Yes: Severely Impaired - Swallow Evaluation/Bedside Assessment Current Nutritional Intake: NPO Oral Secretions: Yes: WFL Dentition: Yes: Adequate Facial Symmetry at Rest: Symmetrical Facial Symmetry on Retraction: Symmetrical Facial Movement: Controlled Sensation: Normal Against Resistance Opening: Normal Against Resistance Closing: Normal Pucker Lips: Normal Smile: Normal Lingual Movement: Normal, Symmetric Lingual Speed of Movement: Normal Lingual Movement Strgth Against Opposition: Normal Lingual Movement Characteristics: Normal Velopharyngeal Movement: Normal Laryngeal Elevation: WFL Laryngeal Movement: Able to Palpate Rate of Intake: WFL Labial Seal: WFL Chewing: WFL Oral Prep Time: WFL A-P Transit: WFL Pocketing: None Timing of Swallow: WFL Coughing/Throat Clear: No Change in Voice: No Recommendations - Speech Evaluation, Impression/Plan Impression: Acute r thalamic infarct-Not oriented. "NH" Age,month,pres "don't know', poor recall after 1 min without distraction. Left neglect but crosses midline with cues. able to read. Speech monotonous prosody but not dysarthric. Swallowing intact. - Disposition Discharge to: To be Determined - Dysphagia Impressions/Plan Swallowing Skills: [facility] Dysphagia Impressions: No Impairment *Silent aspiration: cannot be R/O at bedside - Recommendations Diet Consistency: Regular Medication Administration: Whole with water Liquids: Thin Liquids
[2017-03-19] MEDS ORDERED: PT OWN MED DRAWER 7, Y5N ONE ×3 (10:37→12:45)
[2017-03-19] MEDS: amLODIPine BESYLATE 5 MG TABLET (FP) PO SCH (10:41)
--- NOTE | 2017-03-19 10:44 | PN ---
Physical Exam: SUBJECTIVE: Patient seen and examined at the bedside. She has poor recollection of why she was hospitalized. Denies any discomfort or pain. OBJECTIVE: Brain MRI results: - small acute right thalamic infarct - small chronic right pontine infarct - punctate chronic bilateral basal ganglia infarcts - advanced periventricular and subcortical chronic microvascular ischemic changes - multiple supratentorial and inratentorial chronic microbleeds Findings discussed with Dr. Olivera, Neuro: start ASA 81mg now, Carotid doppler, echo, stroke workup protocol Vital Signs Period Temp Pulse Resp BP Sys/Luz Pulse Ox Last 24 Hr 95.6 F-99.0 F 71-114 16-18 135-174/65-96 97-100 GENERAL: awakes to voice, lethargic, answers appropriate, poor recall, oriented to name HEAD: Normal with no signs of trauma. EYES: PERRL, extraocular movements intact, sclera anicteric, conjunctiva clear. No ptosis. ENT: Ears normal, nares patent, oropharynx clear without exudates, moist mucous membranes. NECK: Trachea midline, full range of motion, supple. LUNGS: Breath sounds equal, no accessory muscle use. 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 EXTREMITIES:no edema. NEUROLOGICAL: Speech slightly slurred, gait not observed. PSYCH: lethargic, flat affect SKIN: Warm, dry, normal turgor, no rashes or lesions noted Laboratory Results - last 24 hr 03/18/17 03/18/17 03/18/17 09:16 09:16 11:00 WBC RBC Hgb Hct MCV MCH MCHC RDW Plt Count MPV Neutrophils % Lymphocytes % Monocytes % Eosinophils % Basophils % VBG pH 7.26 L POC VBG pCO2 51.1 POC VBG pO2 34.4 Mixed VBG HCO3 22.0 Sodium Potassium Chloride Carbon Dioxide Anion Gap BUN Creatinine Creat Clearance w eGFR POC Glucometer Random Glucose Hemoglobin A1c % Lactic Acid 3.6 H* Calcium Magnesium Total Bilirubin AST ALT Alkaline Phosphatase Creatine Kinase Creatine Kinase Index CK-MB (CK-2) Troponin I Total Protein Albumin Triglycerides Cholesterol Total LDL Cholesterol HDL Cholesterol TSH Urine Color Yellow Urine Appearance Slcloudy Urine pH 5.0 D Ur Specific [place] 1.017 Urine Protein 2+ H Urine Glucose (UA) Negative Urine Ketones Trace H Urine Blood 2+ H Urine Nitrite Negative Urine Bilirubin Negative Urine Urobilinogen Negative Ur Leukocyte Esterase Negative Urine WBC (Auto) 1 Urine RBC (Auto) 2 Ur Epithelial Cells Rare Urine Bacteria Rare Hyaline Casts 15 Urine Mucus Few Opiates Screen Methadone Screen Barbiturate Screen Phencyclidine Screen Ur Amphetamines Screen MDMA (Ecstasy) Screen Benzodiazepines Screen Cocaine Screen U Marijuana (THC) Screen Alcohol, Quantitative Blood Type Antibody Screen 03/18/17 03/18/17 03/18/17 11:43 12:02 12:05 WBC RBC Hgb Hct MCV MCH MCHC RDW Plt Count MPV Neutrophils % Lymphocytes % Monocytes % Eosinophils % Basophils % VBG pH POC VBG pCO2 POC VBG pO2 Mixed VBG HCO3 Sodium Potassium Chloride Carbon Dioxide Anion Gap BUN Creatinine Creat Clearance w eGFR POC Glucometer Random Glucose Hemoglobin A1c % Lactic Acid 1.3 Calcium Magnesium Total Bilirubin AST ALT Alkaline Phosphatase Creatine Kinase Creatine Kinase Index CK-MB (CK-2) Troponin I Total Protein Albumin Triglycerides Cholesterol Total LDL Cholesterol HDL Cholesterol TSH Urine Color Urine Appearance Urine pH Ur Specific [place] Urine Protein Urine Glucose (UA) Urine Ketones Urine Blood Urine Nitrite Urine Bilirubin Urine Urobilinogen Ur Leukocyte Esterase Urine WBC (Auto) Urine RBC (Auto) Ur Epithelial Cells Urine Bacteria Hyaline Casts Urine Mucus Opiates Screen Methadone Screen Barbiturate Screen Phencyclidine Screen Ur Amphetamines Screen MDMA (Ecstasy) Screen Benzodiazepines Screen Cocaine Screen U Marijuana (THC) Screen Alcohol, Quantitative < 5.0 Blood Type A NEGATIVE Antibody Screen Negative 03/18/17 03/18/17 03/18/17 12:39 13:52 15:15 WBC RBC Hgb Hct MCV MCH MCHC RDW Plt Count MPV Neutrophils % Lymphocytes % Monocytes % Eosinophils % Basophils % VBG pH POC VBG pCO2 POC VBG pO2 Mixed VBG HCO3 Sodium Potassium Chloride Carbon Dioxide Anion Gap BUN Creatinine Creat Clearance w eGFR POC Glucometer Random Glucose Hemoglobin A1c % Lactic Acid Calcium Magnesium Total Bilirubin AST ALT Alkaline Phosphatase Creatine Kinase Creatine Kinase Index CK-MB (CK-2) Troponin I 0.04 Total Protein Albumin Triglycerides Cholesterol Total LDL Cholesterol HDL Cholesterol TSH Cancelled 1.02 D Urine Color Urine Appearance Urine pH Ur Specific [place] Urine Protein Urine Glucose (UA) Urine Ketones Urine Blood Urine Nitrite Urine Bilirubin Urine Urobilinogen Ur Leukocyte Esterase Urine WBC (Auto) Urine RBC (Auto) Ur Epithelial Cells Urine Bacteria Hyaline Casts Urine Mucus Opiates Screen Methadone Screen Barbiturate Screen Phencyclidine Screen Ur Amphetamines Screen MDMA (Ecstasy) Screen Benzodiazepines Screen Cocaine Screen U Marijuana (THC) Screen Alcohol, Quantitative Blood Type A NEGATIVE Antibody Screen 03/18/17 03/18/17 03/18/17 15:15 15:15 18:12 WBC RBC Hgb Hct MCV MCH MCHC RDW Plt Count MPV Neutrophils % Lymphocytes % Monocytes % Eosinophils % Basophils % VBG pH POC VBG pCO2 POC VBG pO2 Mixed VBG HCO3 Sodium Potassium Chloride Carbon Dioxide Anion Gap BUN Creatinine Creat Clearance w eGFR POC Glucometer Random Glucose Hemoglobin A1c % 5.9 D Lactic Acid Calcium Magnesium Total Bilirubin AST ALT Alkaline Phosphatase Creatine Kinase Creatine Kinase Index CK-MB (CK-2) Troponin I Total Protein Albumin Triglycerides 44 D Cholesterol 191 D Total LDL Cholesterol 117 H HDL Cholesterol 60 D TSH Urine Color Urine Appearance Urine pH Ur Specific [place] Urine Protein Urine Glucose (UA) Urine Ketones Urine Blood Urine Nitrite Urine Bilirubin Urine Urobilinogen Ur Leukocyte Esterase Urine WBC (Auto) Urine RBC (Auto) Ur Epithelial Cells Urine Bacteria Hyaline Casts Urine Mucus Opiates Screen Negative Methadone Screen Negative Barbiturate Screen Negative Phencyclidine Screen Negative Ur Amphetamines Screen Negative MDMA (Ecstasy) Screen Negative Benzodiazepines Screen Negative Cocaine Screen Negative U Marijuana (THC) Screen Negative Alcohol, Quantitative Blood Type Antibody Screen 03/18/17 03/18/17 03/19/17 18:17 18:17 04:42 WBC RBC Hgb Hct MCV MCH MCHC RDW Plt Count MPV Neutrophils % Lymphocytes % Monocytes % Eosinophils % Basophils % VBG pH POC VBG pCO2 POC VBG pO2 Mixed VBG HCO3 Sodium 142 Potassium 4.0 D Chloride 108 H Carbon Dioxide 20 L Anion Gap 14 BUN 38 H Creatinine 1.1 H D Creat Clearance w eGFR 48.04 POC Glucometer 67 Random Glucose 66 L D Hemoglobin A1c % Lactic Acid Calcium 8.5 Magnesium Total Bilirubin 0.9 AST 75 H ALT 38 Alkaline Phosphatase 60 D Creatine Kinase 2376 H Creatine Kinase Index 1.8 CK-MB (CK-2) 43.948 H Troponin I 0.06 H Total Protein 6.2 L D Albumin 3.6 D Triglycerides Cholesterol Total LDL Cholesterol HDL Cholesterol TSH Urine Color Urine Appearance Urine pH Ur Specific [place] Urine Protein Urine Glucose (UA) Urine Ketones Urine Blood Urine Nitrite Urine Bilirubin Urine Urobilinogen Ur Leukocyte Esterase Urine WBC (Auto) Urine RBC (Auto) Ur Epithelial Cells Urine Bacteria Hyaline Casts Urine Mucus Opiates Screen Methadone Screen Barbiturate Screen Phencyclidine Screen Ur Amphetamines Screen MDMA (Ecstasy) Screen Benzodiazepines Screen Cocaine Screen U Marijuana (THC) Screen Alcohol, Quantitative Blood Type Antibody Screen 03/19/17 03/19/17 06:20 06:20 WBC 6.6 D RBC 3.82 D Hgb 9.9 L D Hct 31.0 L D MCV 81.1 MCH 26.0 MCHC 32.1 RDW 15.2 Plt Count 224 D MPV 9.5 Neutrophils % 75.2 Lymphocytes % 15.1 D Monocytes % 8.8 Eosinophils % 0.3 D Basophils % 0.6 VBG pH POC VBG pCO2 POC VBG pO2 Mixed VBG HCO3 Sodium 140 Potassium 3.8 Chloride 109 H Carbon Dioxide 22 Anion Gap 9 BUN 26 H D Creatinine 0.9 Creat Clearance w eGFR > 60 POC Glucometer Random Glucose 74 Hemoglobin A1c % Lactic Acid Calcium 8.1 L Magnesium 2.0 D Total Bilirubin 0.7 D AST 82 H ALT 38 Alkaline Phosphatase 50 Creatine Kinase Creatine Kinase Index CK-MB (CK-2) Troponin I Total Protein 5.2 L Albumin 2.9 L Triglycerides Cholesterol Total LDL Cholesterol HDL Cholesterol TSH Urine Color Urine Appearance Urine pH Ur Specific [place] Urine Protein Urine Glucose (UA) Urine Ketones Urine Blood Urine Nitrite Urine Bilirubin Urine Urobilinogen Ur Leukocyte Esterase Urine WBC (Auto) Urine RBC (Auto) Ur Epithelial Cells Urine Bacteria Hyaline Casts Urine Mucus Opiates Screen Methadone Screen Barbiturate Screen Phencyclidine Screen Ur Amphetamines Screen MDMA (Ecstasy) Screen Benzodiazepines Screen Cocaine Screen U Marijuana (THC) Screen Alcohol, Quantitative Blood Type Antibody Screen Active Medications Generic Name Dose Route Start Last Admin Trade Name Freq PRN Reason Stop Dose Admin Amlodipine Besylate 5 mg 03/19/17 10:00 03/19/17 10:41 Norvasc - PO 5 mg DAILY EARL Administration Aspirin 81 mg 03/19/17 10:45 Ecotrin - PO DAILY EARL Atorvastatin Calcium 10 mg 03/19/17 22:00 Lipitor - PO HS EARL CEFTRIAXONE IN IS-OSM DEXTROSE 2 gm in 50 mls @ 100 mls/hr 03/19/17 10:00 Ceftriaxone 2 Gm-D5w Bag IVPB DAILY EARL Dextrose/Sodium Chloride 1,000 mls @ 75 mls/hr 03/19/17 05:45 D5-1/2ns - IV [facility] ASSESSMENT/PLAN: Patient is a 77 year old female with a past medical history of hypertension, hyperlipidemia and UTI. She was brought into the ER today via ambulance after being found on the doorsteps outside for unknown amount of time. EMS noted that she responded to painful stimuli but otherwise was not responsive. They were unable to get a pulse oxygenation, blood pressure, or temperature in the field. In the ED the patient remained minimally responsive and was unable to provide any history and was found to have a rectal temperature of 86.3f, and initially hypertensive in the 160s. Warm saline was drip was initiated, nadiya hugger blanket placed with rectal probe monitor. Patient is able to state her name, and is more alert but remains lethargic. Her speech is slightly slurred. She does not recall the events that led her up to the hospitalization. She denies chest pain or shortness of breath. She denies any drug use, alcohol use or any new medications. Patient may have had a neurological episode vs. ACS or possible due to intoxication or drug use?. Sepsis workup initiated as well. On admission her lactic acid was 3.6, temp 86.3 rectal, her CK was 1619 and bun/creat of 45/1.5. Her chest xray shows a developing left lung infiltrate. Brain MRI results: - small acute right thalamic infarct - small chronic right pontine infarct - punctate chronic bilateral basal ganglia infarcts - advanced periventricular and subcortical chronic microvascular ischemic changes - multiple supratentorial and inratentorial chronic microbleeds Neuro: Syncope 2/2 Acute right thalmamic infarct as per MRI Brain MRi shows small acute right thamalic infarct with chronic infarcts and chronic microbleeds MRI findings discussed with Dr. Olivera, Neurologist: start ASA 81mg now, Carotid doppler now, echo, started on lipitor 10mg @ hs. Patient has left sided weakness 3/5 left arm, right arm 5/5, will ambulate with PT to assess lower extremity function status Mental status improved slightly but has poor recall, remains lethargic Monitor neuro status Swallow eval shows no difficulty swallowing, on regular diet Cardiology Rule out ACS Hypertension, elevated Trops 0.02, 0.04, 0.06, document peak with a.m. trop. EKG with st/t wave abnormality, consider ant ischemia On Amlodopine 5mg home dose Monitor on tele which shows SR 60s Echo pending Cardiology following Hyperlipidemia: Lipid panel reviewed, started on Lipitor 10mg @ hs ID: Sepsis rule out Hypothermia, bradycardia in the 60s with AMS with lactic acidosis Lactic acidosis resolved after fluid bolus, Hypothermia resolved AMS with some improvement Blood and urine cultures sent and pending On Ceftriaxone 2 gram ID following Pulmonary: Chest xray with possible developing left lung infiltrate Ceftriaxone 2gm Monitor respiratory status, tolerating room air, stable 02 Pulmonary consult Renal FREDIS/Rhabdo Pt found on floor outside for unknown amt of time FREDIS resolved on IVF Rhabdo: CPK 2600, rechecking CPK now Continue ivf F.E.N. Fluids: IVF @ 100cc/hr Electrolytes: monitor cmp Nutrition: regular diet Prophylaxis: DVT: Heparin TID GI: Protonix IV 40mg daily Disposition. Patient was iniatlly for ICU admission on presentation, then downgraded to tele unit. full code. Visit type - Emergency Visit Emergency Visit: Yes ED Registration Date: 03/18/17 Care time: The patient presented to the Emergency Department on the above date and was hospitalized for further evaluation of their emergent condition. - New Patient This patient is new to me today: No - Critical Care Critical Care patient: No - Discharge Referral Referred to [facility] Med P.C.: No
[2017-03-19] MEDS: ASPIRIN COATED 81 MG TABLET.EC PO SCH (11:27)
--- NOTE | 2017-03-19 12:04 | PN ---
Progress Note, Physician History of Present Illness: feeling slightly better confused no specific complaints - Current Medication List Current Medications: Active Medications Amlodipine Besylate (Norvasc -) 5 mg PO DAILY [facility] Last Admin: 03/19/17 10:41 Dose: 5 mg Aspirin (Ecotrin -) 81 mg PO DAILY [facility] Last Admin: 03/19/17 11:27 Dose: 81 mg Atorvastatin Calcium (Lipitor -) 10 mg PO [facility] Heparin Sodium (Porcine) (Heparin -) 5,000 unit SQ TID [facility] CEFTRIAXONE IN IS-OSM DEXTROSE (Ceftriaxone 2 Gm-D5w Bag) 2 gm in 50 mls @ 100 mls/hr IVPB DAILY EARL Dextrose/Sodium Chloride (D5-1/2ns -) 1,000 mls @ 75 mls/hr IV ASDIR EARL - Objective Vital Signs: Vital Signs Temperature 98.0 F 03/19/17 03:30 Pulse Rate 71 03/19/17 03:30 Respiratory Rate 18 03/19/17 03:30 Blood Pressure 173/83 03/19/17 03:30 O2 Sat by Pulse Oximetry (%) 97 03/19/17 03:30 Constitutional: Yes: No Distress, Calm Cardiovascular: Yes: Regular Rate and Rhythm Respiratory: Yes: Regular, CTA Bilaterally Gastrointestinal: Yes: Normal Bowel Sounds, Soft Musculoskeletal: Yes: WNL Extremities: Yes: WNL Neurological: Yes: Alert, Confusion Psychiatric: Yes: Alert Labs: CBC, BMP 03/19/17 06:20 03/19/17 06:20 INR, PTT INR 1.04 (0.82-1.09) 03/18/17 09:16 - ....Imaging Cat Scan: Report Reviewed, Image Reviewed Assessment/Plan Problem List - Problems (1) Anemia Code(s): D64.9 - ANEMIA, UNSPECIFIED (2) Altered mental status Code(s): R41.82 - ALTERED MENTAL STATUS, UNSPECIFIED Qualifiers: Altered mental status type: unspecified Qualified Code(s): R41.82 - Altered mental status, unspecified (3) Hypothermia Code(s): T68.XXXA - HYPOTHERMIA, INITIAL ENCOUNTER Qualifiers: Encounter type: initial encounter Qualified Code(s): T68.XXXA - Hypothermia , initial encounter (4) Rhabdomyolysis Code(s): M62.82 - RHABDOMYOLYSIS Qualifiers: Rhabdomyolysis type: non-traumatic Qualified Code(s): M62.82 - Rhabdomyolysis (5) Confusion Code(s): R41.0 - DISORIENTATION, UNSPECIFIED (6) Hypertensive emergency Code(s): I16.1 - HYPERTENSIVE EMERGENCY (7) Pneumonia Code(s): J18.9 - PNEUMONIA, UNSPECIFIED ORGANISM plan continue current mgmt neurology on case close watch rest as per primary team
--- NOTE | 2017-03-19 12:22 | PN ---
Progress Note (short form) - Note Progress Note: s: no cp sob palps dizzy o: Vital Signs Period Temp Pulse Resp BP Sys/Luz Pulse Ox Last 24 Hr 98.0 F-99.0 F 71-114 16-18 135-174/65-96 97-100 NAD, alert not oriented JVD flat, neck supple rrr nl s1, s2 2/6 murmur at lsb. nd pmi ctab, nl effort + bs soft nt nd ext without e/c/c no jaundice, diaphoresis Current Medications Generic Name Dose Route Start Last Admin Trade Name Frejacque PRN Reason Stop Dose Admin Amlodipine Besylate 5 mg 03/19/17 10:00 03/19/17 10:41 Norvasc - PO 5 mg DAILY EARL Administration Aspirin 81 mg 03/19/17 10:45 03/19/17 11:27 Ecotrin - PO 81 mg DAILY EARL Administration Atorvastatin Calcium 10 mg 03/19/17 22:00 Lipitor - PO HS EARL Heparin Sodium (Porcine) 5,000 unit 03/19/17 14:00 Heparin - SQ TID EARL CEFTRIAXONE IN IS-OSM DEXTROSE 2 gm in 50 mls @ 100 mls/hr 03/19/17 10:00 Ceftriaxone 2 Gm-D5w Bag IVPB DAILY EARL Dextrose/Sodium Chloride 1,000 mls @ 75 mls/hr 03/19/17 05:45 D5-1/2ns - IV ASDIR EARL CBC, BMP 03/19/17 06:20 03/19/17 06:20 ekg: nsr, lad. non-specific diffuse t wave abnormalities slightly more prominent than on priors. tele: SR cxr: developing CHRIS infiltrate. head ct: diffuse cerebral atrophy. chronic small vessel ischemia echo 11/2016: nl lv/rv size/fn. mod nia. mod MR (eccentric). mod tr a/p: 77 y/o with h/o htn (c/b htn urgency admit 11/2016), chronic lacunar infarcts, HL presents to ER after being found down outside for unknown amount of time/hypothermic on presentation. syncope/hypothermia - patient found down outside, possible syncope. utox negative. - echo pending, tele benign. - head ct no acute pathology - no signs acs htn - currently slightly elevated, would resume home amlodipine. hold home lisinopril while hyperkalemic. - will likely need ongoing uptitration of regimen as clinical status improves. hld - hold statin while rhabdo rhabdo - IVF as needed per pmd.
[2017-03-19] MEDS: CEFTRIAXONE IN IS-OSM DEXTROSE 2 GM/50 ML BAG IVPB SCH (13:31)
[2017-03-19] MEDS: HEPARIN NA (PORCINE) 5,000 UNITS/ML 1ML VIAL SQ SCH ×2 (13:31→21:22)
--- NOTE | 2017-03-19 14:31 | CON.PULM ---
Consult Consult Specialty:: PULMONARY Referred by:: KIMBERLY Reason for Consultation:: CHRIS PNEUMONIA - History of Present Illness Chief Complaint: FOUND POORLY RESPONSIVE OUTSIDE HYPOTHERMIC History of Present Illness: Patient is a 77 year old female with a past medical history of hypertension, hyperlipidemia and UTI. She was brought into the ER via ambulance after being found on the doorsteps outside for unknown amount of time. EMS noted that she responded to painful stimuli but otherwise was not responsive. They were unable to get a pulse oxygenation, blood pressure, or temperature in the field. In the ED the patient remained minimally responsive and was unable to provide any history and was found to have a rectal temperature of 86.3f, and initially hypertensive in the 160s. Warm saline was drip was initiated, nadiya hugger blanket placed with rectal probe monitor. Patient is now is more alert but remains lethargic. She does not recall the events that led her up to the hospitalization. She denies chest pain or shortness of breath. She denies any drug use, alcohol use or any new medications. 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 No: AFIB Pulmonary: Yes: Pneumonia Gastrointestinal: No: Ascites Hepatobiliary: No: Cirrhosis Renal/: No: Renal Failure Reproductive: Yes: Postmenopausal Heme/Onc: Yes: Anemia Endocrine: No: Diabetes Mellitus - Alcohol/Substance Use Hx Alcohol Use: No - Smoking History Smoking history: Former smoker Have you smoked in the past 12 months: No - Social History Place of : [facility] History of Recent Travel: No Home Medications - Allergies Allergies/Adverse Reactions: Allergies Allergy/AdvReac Type Severity Reaction Status Date / Time No Known Allergies Allergy Verified 12/08/16 09:40 - Home Medications Home Medications: Ambulatory Orders Amlodipine Besylate [Norvasc -] 10 mg PO DAILY #30 tablet 12/10/16 Aspirin Coated [Ecotrin -] 81 mg PO DAILY #30 tab 12/10/16 Atorvastatin Ca [Lipitor] 40 mg PO HS #30 tablet 12/10/16 Lisinopril [Prinivil] 20 mg PO DAILY #30 tablet 12/10/16 Miscellaneous Drug Not In Syst [Outpatient Lab Test] 1 each ASDIR #1 misc Family Disease History - Family Disease History Family History: Unable to Obtain Review of Systems Unable to obtain ROS, reason: UNABLE TO OBTAIN Physical Exam Vital Sings: Vital Signs Temperature 98.2 F 03/19/17 08:07 Pulse Rate 69 03/19/17 08:07 Respiratory Rate 18 03/19/17 09:00 Blood Pressure 149/76 03/19/17 08:07 O2 Sat by Pulse Oximetry (%) 99 03/19/17 09:00 Constitutional: Yes: Calm, Poor Hygeine, Thin Eyes: Yes: EOM Intact HENT: Yes: Normocephalic Neck: Yes: Trachea Midline Cardiovascular: Yes: Regular Rate and Rhythm, S1, S2 Respiratory: Yes: Diminished Gastrointestinal: Yes: Normal Bowel Sounds Edema: No Neurological: Yes: Confusion Labs: CBC, BMP 03/19/17 06:20 03/19/17 06:20 REST REVIEWED Imaging - Results Chest X-ray: Report Reviewed, Image Reviewed Cat Scan: Report Reviewed MRI: Report Reviewed EKG: Report Reviewed, Image Reviewed Problem List - Problems (1) Anemia Code(s): D64.9 - ANEMIA, UNSPECIFIED (2) Altered mental status Code(s): R41.82 - ALTERED MENTAL STATUS, UNSPECIFIED Qualifiers: Altered mental status type: unspecified Qualified Code(s): R41.82 - Altered mental status, unspecified (3) Hypothermia Code(s): T68.XXXA - HYPOTHERMIA, INITIAL ENCOUNTER Qualifiers: Encounter type: initial encounter Qualified Code(s): T68.XXXA - Hypothermia , initial encounter (4) Rhabdomyolysis Code(s): M62.82 - RHABDOMYOLYSIS Qualifiers: Rhabdomyolysis type: non-traumatic Qualified Code(s): M62.82 - Rhabdomyolysis (5) Confusion Code(s): R41.0 - DISORIENTATION, UNSPECIFIED (6) Hypertensive emergency Code(s): I16.1 - HYPERTENSIVE EMERGENCY (7) Pneumonia Code(s): J18.9 - PNEUMONIA, UNSPECIFIED ORGANISM Assessment/Plan POSSIBLE EARLY LEFT UPPER LOBE INFILTRATE HYPOTHERMIA/RESOLVING RHABDO HTN/HLD/WHITE MATTER CHANGES ON MR CULTURES - THUS FAR CONTINUE EMPIRIC ANTIBIOTICS/O2 REQUIRED WILL FOLLOW Lorraine ANN MD
[2017-03-19] MEDS: DEXTROSE 5%-0.45% SALINE 1,000 ML IV SCH (21:27)
[2017-03-20] MEDS: HEPARIN NA (PORCINE) 5,000 UNITS/ML 1ML VIAL SQ SCH ×3 (06:17→21:48)
[2017-03-20 07:37] LABS: BASO % 0.7 % (0-2.0); EOS % 0.7 % (0-4.5); HEMATOCRIT 37.3 % (32.4-45.2); LYMPH % 20.6 % (8-40); MCH 26.1 pg (25.7-33.7); MCHC 32.1 g/dl (32.0-36.0); MEAN CELL VOLUME 81.2 fl (80-96); MEAN PLT VOLUME 9.8 fl (7.5-11.1); MONO % 10.7 % (3.8-10.2); NEUT % 67.3 % (42.8-82.8); PLATELET COUNT 234 K/MM3 (134-434); RBC 4.59 M/mm3 (3.60-5.2); RDW 15.2 % (11.6-15.6); WHITE BLOOD COUNT 3.9 K/mm3 (4.0-10.0)
[2017-03-20 08:31] LABS: ANION GAP 7 (8-16); BILIRUBIN,TOTAL 0.5 mg/dL (0.2-1.0); BLOOD UREA NITROGEN 15 mg/dL (7-18); CALCIUM 8.4 mg/dL (8.5-10.1); CHLORIDE 107 mmol/L (98-107); CO2 28 mmol/L (21-32); CREATININE 0.8 mg/dL (0.55-1.02); GLUCOSE,RANDOM 102 mg/dL (74-106); POTASSIUM 3.9 mmol/L (3.5-5.1); SGOT/AST 78 U/L (15-37); SGPT/ALT 48 U/L (12-78); SODIUM 142 mmol/L (136-145); TOT PROT 5.8 g/dl (6.4-8.2)
[2017-03-20 08:32] LABS: ALK PHOS 54 U/L (45-117)
[2017-03-20] MEDS: CEFTRIAXONE IN IS-OSM DEXTROSE 2 GM/50 ML BAG IVPB SCH (09:04)
[2017-03-20] MEDS: DEXTROSE 5%-0.45% SALINE 1,000 ML IV SCH (09:04)
[2017-03-20] MEDS: amLODIPine BESYLATE 5 MG TABLET (FP) PO SCH ×2 (09:04→16:29)
[2017-03-20] MEDS: ASPIRIN COATED 81 MG TABLET.EC PO SCH (09:07)
--- NOTE | 2017-03-20 11:15 | PN ---
Progress Note (short form) - Note Progress Note: Resting in NAD. Remains forgetful/confused. No acute events overnight. Intake & Output 03/17/17 03/18/17 03/19/17 03/20/17 23:59 23:59 23:59 23:59 Intake Total 2200 300 1070 Output Total 1700 900 Balance 500 -600 1070 Weight 120 lb 120 lb Last Vital Signs Temp Pulse Resp BP Pulse Ox 98.3 F 69 18 187/102 96 03/20/17 09:00 03/20/17 09:00 03/20/17 09:00 03/20/17 09:00 03/20/17 10:12 Active Medications Amlodipine Besylate (Norvasc -) 5 mg PO DAILY [facility] Last Admin: 03/20/17 09:04 Dose: 5 mg Aspirin (Ecotrin -) 81 mg PO DAILY [facility] Last Admin: 03/20/17 09:07 Dose: 81 mg Atorvastatin Calcium (Lipitor -) 10 mg PO [facility] Heparin Sodium (Porcine) (Heparin -) 5,000 unit SQ TID [facility] Last Admin: 03/20/17 06:17 Dose: 5,000 unit CEFTRIAXONE IN IS-OSM DEXTROSE (Ceftriaxone 2 Gm-D5w Bag) 2 gm in 50 mls @ 100 mls/hr IVPB DAILY [facility] Last Admin: 03/20/17 09:04 Dose: 100 mls/hr Dextrose/Sodium Chloride (D5-1/2ns -) 1,000 mls @ 75 mls/hr IV ASDIR [facility] Last Admin: 03/20/17 09:04 Dose: Not Given Constitutional: Yes: NAD, Thin, confusion Eyes: Yes: EOM Intact HENT: Yes: Normocephalic Neck: Yes: Trachea Midline Cardiovascular: Yes: Regular Rate and Rhythm, S1, S2 Respiratory: Yes: few scattered rhonchi Gastrointestinal: Yes: Normal Bowel Sounds Edema: No Neurological: Yes: Confusion Labs: Laboratory Results - last 24 hr 03/19/17 03/19/17 03/20/17 06:20 13:07 06:30 WBC 3.9 L D RBC 4.59 D Hgb 12.0 D Hct 37.3 D MCV 81.2 MCH 26.1 MCHC 32.1 RDW 15.2 Plt Count 234 MPV 9.8 Neutrophils % 67.3 Lymphocytes % 20.6 D Monocytes % 10.7 H Eosinophils % 0.7 D Basophils % 0.7 Sodium 140 Potassium 3.8 Chloride 109 H Carbon Dioxide 22 Anion Gap 9 BUN 26 H D Creatinine 0.9 Creat Clearance w eGFR > 60 Random Glucose 74 Calcium 8.1 L Magnesium 2.0 D Total Bilirubin 0.7 D AST 82 H ALT 38 Alkaline Phosphatase 50 Creatine Kinase 2121 H Creatine Kinase Index 1.2 CK-MB (CK-2) 26.620 H Troponin I 0.44 H Total Protein 5.2 L Albumin 2.9 L 03/20/17 03/20/17 03/20/17 06:30 06:30 10:05 WBC RBC Hgb Hct MCV MCH MCHC RDW Plt Count MPV Neutrophils % Lymphocytes % Monocytes % Eosinophils % Basophils % Sodium 142 Potassium 3.9 Chloride 107 Carbon Dioxide 28 D Anion Gap 7 L BUN 15 D Creatinine 0.8 Creat Clearance w eGFR > 60 Random Glucose 102 D Calcium 8.4 L Magnesium Total Bilirubin 0.5 D AST 78 H ALT 48 D Alkaline Phosphatase 54 Creatine Kinase 1383 H Cancelled Creatine Kinase Index 0.8 CK-MB (CK-2) 11.340 H Troponin I 0.28 H Total Protein 5.8 L Albumin 3.0 L Problem List - Problems (1) Anemia Code(s): D64.9 - ANEMIA, UNSPECIFIED (2) Altered mental status Code(s): R41.82 - ALTERED MENTAL STATUS, UNSPECIFIED Qualifiers: Altered mental status type: unspecified Qualified Code(s): R41.82 - Altered mental status, unspecified (3) Hypothermia Code(s): T68.XXXA - HYPOTHERMIA, INITIAL ENCOUNTER Qualifiers: Encounter type: initial encounter Qualified Code(s): T68.XXXA - Hypothermia , initial encounter (4) Rhabdomyolysis Code(s): M62.82 - RHABDOMYOLYSIS Qualifiers: Rhabdomyolysis type: non-traumatic Qualified Code(s): M62.82 - Rhabdomyolysis (5) Confusion Code(s): R41.0 - DISORIENTATION, UNSPECIFIED (6) Hypertensive emergency Code(s): I16.1 - HYPERTENSIVE EMERGENCY (7) Pneumonia Code(s): J18.9 - PNEUMONIA, UNSPECIFIED ORGANISM Assessment/Plan Empiric Rocephin per ID O2 as needed Fall precautions Dr Fontaine
--- NOTE | 2017-03-20 11:34 | PN ---
Physical Exam: SUBJECTIVE: Patient seen and examined OBJECTIVE: Spoke to patient's sister via telephone and updated her on POC Sister states patient is non compliant with home meds and has dementia and is often forgetful. Vital Signs Period Temp Pulse Resp BP Sys/Luz Pulse Ox Last 24 Hr 97.4 F-98.8 F 64-70 18-18 146-198/73-102 96-99 GENERAL: awakes to voice, lethargic, answers appropriate, poor recall, oriented to name HEAD: Normal with no signs of trauma. EYES: PERRL, extraocular movements intact, sclera anicteric, conjunctiva clear. No ptosis. ENT: Ears normal, nares patent, oropharynx clear without exudates, moist mucous membranes. NECK: Trachea midline, full range of motion, supple. LUNGS: Breath sounds equal, no accessory muscle use. HEART:SR 60s on kiss setter hand ABDOMEN: Soft, nontender, nondistended, normoactive bowel sounds, no guarding, no rebound, no hepatosplenomegaly, no masses. EXTREMITIES:no edema./+ left sided weakness 3/5 left arm, right arm 5/5 NEUROLOGICAL: Speech slightly slurred, gait not observed. PSYCH: lethargic, flat affect SKIN: Warm, dry, normal turgor, no rashes or lesions noted Laboratory Results - last 24 hr 03/19/17 03/19/17 03/20/17 06:20 13:07 06:30 WBC 3.9 L D RBC 4.59 D Hgb 12.0 D Hct 37.3 D MCV 81.2 MCH 26.1 MCHC 32.1 RDW 15.2 Plt Count 234 MPV 9.8 Neutrophils % 67.3 Lymphocytes % 20.6 D Monocytes % 10.7 H Eosinophils % 0.7 D Basophils % 0.7 Sodium 140 Potassium 3.8 Chloride 109 H Carbon Dioxide 22 Anion Gap 9 BUN 26 H D Creatinine 0.9 Creat Clearance w eGFR > 60 Random Glucose 74 Calcium 8.1 L Magnesium 2.0 D Total Bilirubin 0.7 D AST 82 H ALT 38 Alkaline Phosphatase 50 Creatine Kinase 2121 H Creatine Kinase Index 1.2 CK-MB (CK-2) 26.620 H Troponin I 0.44 H Total Protein 5.2 L Albumin 2.9 L 03/20/17 03/20/17 03/20/17 06:30 06:30 10:05 WBC RBC Hgb Hct MCV MCH MCHC RDW Plt Count MPV Neutrophils % Lymphocytes % Monocytes % Eosinophils % Basophils % Sodium 142 Potassium 3.9 Chloride 107 Carbon Dioxide 28 D Anion Gap 7 L BUN 15 D Creatinine 0.8 Creat Clearance w eGFR > 60 Random Glucose 102 D Calcium 8.4 L Magnesium Total Bilirubin 0.5 D AST 78 H ALT 48 D Alkaline Phosphatase 54 Creatine Kinase 1394 H 1383 H Cancelled Creatine Kinase Index 0.8 CK-MB (CK-2) 11.340 H Troponin I 0.28 H Total Protein 5.8 L Albumin 3.0 L Active Medications Generic Name Dose Route Start Last Admin Trade Name Freq PRN Reason Stop Dose Admin Amlodipine Besylate 5 mg 03/19/17 10:00 03/20/17 09:04 Norvasc - PO 5 mg DAILY [facility] Administration Aspirin 81 mg 03/19/17 10:45 03/20/17 09:07 Ecotrin - PO 81 mg DAILY [facility] Administration Atorvastatin Calcium 10 mg 03/19/17 22:00 Lipitor - PO HS [facility] Heparin Sodium (Porcine) 5,000 unit 03/19/17 14:00 03/20/17 06:17 Heparin - SQ 5,000 unit TID [facility] Administration CEFTRIAXONE IN IS-OSM DEXTROSE 2 gm in 50 mls @ 100 mls/hr 03/19/17 10:00 09:04 Ceftriaxone 2 Gm-D5w Bag IVPB 100 mls/hr DAILY [facility] Administration Dextrose/Sodium Chloride 1,000 mls @ 75 mls/hr 03/19/17 05:45 03/20/17 09:04 D5-1/2ns - IV Not Given ASDIR [facility] ASSESSMENT/PLAN: Patient is a 77 year old female with a past medical history of hypertension, hyperlipidemia and UTI. She was brought into the ER today via ambulance after being found on the doorsteps outside for unknown amount of time. EMS noted that she responded to painful stimuli but otherwise was not responsive. They were unable to get a pulse oxygenation, blood pressure, or temperature in the field. In the ED the patient remained minimally responsive and was unable to provide any history and was found to have a rectal temperature of 86.3f, and initially hypertensive in the 160s. On admission, warm saline was drip was initiated, nadiya hugger blanket placed with rectal probe monitor. Patient is able to state her name, and is more alert but remains lethargic. Her speech is slightly slurred. She is beginning to recall the events that led her to be transported to the hospital. She states she was in her porch trying to get into her home but she was unable to find her keys and she remembers it being very cold. She then states she does not remember anything after that and woke up in the hospital. On admission her lactic acid was 3.6, temp 86.3 rectal, her CK was 1619 and bun/ creat of 45/1.5. Her chest xray shows a developing left lung infiltrate. Imaging: Brain MRI results: - small acute right thalamic infarct - small chronic right pontine infarct - punctate chronic bilateral basal ganglia infarcts - advanced periventricular and subcortical chronic microvascular ischemic changes - multiple supratentorial and inratentorial chronic microbleeds Echo 03/16/2017: mild concentric left ventricular hypertrophy, LV fx normal, RV fx normal, LA mod dilated, mild MR, mod. TR, right ventricular systolic pressure elevated, moderate aortic sclerosis, no pericardial effusion. Carotid doppler 03/17/16: mild arth. disease, no sign. hemodynamic stenosis Neuro: Syncope 2/2 Acute right thalmamic infarct as per MRI Brain MRi shows small acute right thamalic infarct with chronic infarcts and chronic microbleeds MRI findings discussed with Dr. Olivera, Neurologist Patient on ASA 81mg, Lipitor 10mg @ hs Patient has left sided weakness 3/5 left arm, right arm 5/5, will ambulate with PT to assess lower extremity function status Mental status improved slightly but has poor recall, remains lethargic Monitor neuro status Swallow eval shows no difficulty swallowing, on regular diet Cardiology Rule out ACS Trops 0.02, 0.04, 0.06, 0.44, 0.28 document peak EKG with st/t wave abnormality, consider ant ischemia Monitor on tele which shows SR 60s Echo as above Hypertension, elevated Restart home dose of Linisinopril and given Amlodopine 5mg x 1 now for elevated BP On Amlodopine 5mg home dose Cardiology following Hyperlipidemia: Lipid panel reviewed, started on Lipitor 10mg @ hs ID: Sepsis rule out Hypothermia, bradycardia in the 60s with AMS with lactic acidosis Lactic acidosis resolved after fluid bolus, Hypothermia resolved AMS with some improvement On prophylactic Ceftriaxone Blood and urine cultures sent and pending On Ceftriaxone 2 gram proph until cultures result ID following Pulmonary: Chest xray with possible developing left lung infiltrate Ceftriaxone 2gm Monitor respiratory status, tolerating room air, stable 02 Pulmonary consult Renal FREDIS/Rhabdo Pt found on floor outside for unknown amt of time FREDIS resolved on IVF Rhabdo: CPK 2600 >1300 daily CPK Continue ivf F.E.N. Fluids: IVF @ 50cc/hr Electrolytes: monitor cmp Nutrition: regular diet Prophylaxis: DVT: Heparin TID GI: Protonix IV 40mg daily Disposition. Patient was iniatlly for ICU admission on presentation, then downgraded to tele unit. Discharge planning to SNF once medically cleared. full code. Visit type - Emergency Visit Emergency Visit: Yes ED Registration Date: 03/18/17 Care time: The patient presented to the Emergency Department on the above date and was hospitalized for further evaluation of their emergent condition. - New Patient This patient is new to me today: No - Critical Care Critical Care patient: No - Discharge Referral Referred to [facility] No
[2017-03-20] MEDS ORDERED: DEXTROSE 5%-0.45% SALINE 1,000 ML IV SCH (14:37)
--- NOTE | 2017-03-20 15:24 | PN ---
Progress Note, Physician History of Present Illness: stable improving - Current Medication List Current Medications: Active Medications Amlodipine Besylate (Norvasc -) 5 mg PO DAILY [facility] Last Admin: 03/20/17 09:04 Dose: 5 mg Aspirin (Ecotrin -) 81 mg PO DAILY [facility] Last Admin: 03/20/17 09:07 Dose: 81 mg Atorvastatin Calcium (Lipitor -) 10 mg PO HS [facility] Heparin Sodium (Porcine) (Heparin -) 5,000 unit SQ TID [facility] Last Admin: 03/20/17 14:44 Dose: 5,000 unit CEFTRIAXONE IN IS-OSM DEXTROSE (Ceftriaxone 2 Gm-D5w Bag) 2 gm in 50 mls @ 100 mls/hr IVPB DAILY [facility] Last Admin: 03/20/17 09:04 Dose: 100 mls/hr Dextrose/Sodium Chloride (D5-1/2ns -) 1,000 mls @ 50 mls/hr IV ASDIR [facility] Last Admin: 03/20/17 14:44 Dose: 50 mls/hr - Objective Vital Signs: Vital Signs Temperature 98.3 F 03/20/17 09:00 Pulse Rate 69 03/20/17 09:00 Respiratory Rate 18 03/20/17 09:00 Blood Pressure 187/102 03/20/17 09:00 O2 Sat by Pulse Oximetry (%) 96 03/20/17 10:12 Constitutional: Yes: No Distress, Calm Cardiovascular: Yes: Regular Rate and Rhythm Respiratory: Yes: Regular Gastrointestinal: Yes: Normal Bowel Sounds, Soft Musculoskeletal: Yes: WNL Extremities: Yes: WNL Neurological: Yes: Alert Psychiatric: Yes: Alert Labs: CBC, BMP 03/20/17 06:30 03/20/17 06:30 INR, PTT INR 1.04 (0.82-1.09) 03/18/17 09:16 Assessment/Plan - Problems (1) Altered mental status Code(s): R41.82 - ALTERED MENTAL STATUS, UNSPECIFIED Qualifiers: Altered mental status type: unspecified Qualified Code(s): R41.82 - Altered mental status, unspecified (2) Hypothermia Code(s): T68.XXXA - HYPOTHERMIA, INITIAL ENCOUNTER Qualifiers: Encounter type: initial encounter Qualified Code(s): T68.XXXA - Hypothermia , initial encounter patient after evaluating i am sure patient might have rhabdo neuro note noted plan will stop abx tomorrow rest continue current mgmt
[2017-03-20] MEDS: LISINOPRIL 20 MG TABLET (FP) PO SCH (16:29)
--- NOTE | 2017-03-20 18:46 | PN ---
Progress Note, Physician History of Present Illness: 77 year old female with a past medical history of hypertension, hyperlipidemia and UTI. She was brought into the ER today via ambulance after being found on the doorsteps outside for unknown amount of time. EMS noted that she responded to painful stimuli but otherwise was not responsive. In the ED the patient remained minimally responsive and was unable to provide any history and was found to have a rectal temperature of 86.3f, and initially hypertensive in the 160s. Warm saline was drip was initiated, warming blanket placed. She denies chest pain or shortness of breath. She denies any drug use, alcohol use or any new medications. F/U today; No new complaints ;denies AYALA, neck pain, or focal weakness, numbness. - Current Medication List Current Medications: Active Medications Amlodipine Besylate (Norvasc -) 5 mg PO DAILY [facility] Last Admin: 03/20/17 16:29 Dose: 5 mg Aspirin (Ecotrin -) 81 mg PO DAILY [facility] Last Admin: 03/20/17 09:07 Dose: 81 mg Atorvastatin Calcium (Lipitor -) 10 mg PO [facility] Heparin Sodium (Porcine) (Heparin -) 5,000 unit SQ TID [facility] Last Admin: 03/20/17 14:44 Dose: 5,000 unit CEFTRIAXONE IN IS-OSM DEXTROSE (Ceftriaxone 2 Gm-D5w Bag) 2 gm in 50 mls @ 100 mls/hr IVPB DAILY [facility] Last Admin: 03/20/17 09:04 Dose: 100 mls/hr Dextrose/Sodium Chloride (D5-1/2ns -) 1,000 mls @ 50 mls/hr IV ASDIR [facility] Last Admin: 03/20/17 14:44 Dose: 50 mls/hr Lisinopril (Prinivil) 20 mg PO DAILY [facility] Last Admin: 03/20/17 16:29 Dose: 20 mg - Objective Vital Signs: Vital Signs Temperature 98.3 F 03/20/17 09:00 Pulse Rate 75 03/20/17 14:00 Respiratory Rate 18 03/20/17 09:00 Blood Pressure 188/96 03/20/17 14:00 O2 Sat by Pulse Oximetry (%) 96 03/20/17 10:12 Labs: CBC, BMP 03/20/17 06:30 03/20/17 06:30 INR, PTT INR 1.04 (0.82-1.09) 03/18/17 09:16 Assessment/Plan - Neuro Exam Level Of Consciousness: Yes: Alert (awake , knows hospital and yr-mildly confused); follows 2 steps, EOMI, R eye ptosis, no facial, motor: no drift, no focal weakness, plantars down; ) Gait: Deferred Imaging - Results MRI: Report Reviewed, Image Reviewed Assessment/Plan 77 year old female with a past medical history of hypertension, hyperlipidemia - presents for confusion/ ; found to be hypothermic , ? mild rhabdo-- appears to improving after warming; though may have underlying dementia. Acute R thalamic infarct per MRI brain. c/w baby asp I suggest adding plavix to baby asp for 3 months -CHANCE STUDY for stroke prevention and c/w baby asp thereafter. c/w statin Health maintenance per primary team. Thank you. Homero Mosqueda M.D. [phone]
--- NOTE | 2017-03-20 21:47 | PN ---
Progress Note (short form) - Note Progress Note: CC: syncope s: Patient upset today but denies physical complaints. Appears confused. No cp, palps, dizziness, sob. BP elevated overnight, lisinopril resumed this morning. IVF con't. Current Medications Amlodipine Besylate (Norvasc -) 5 mg PO DAILY [facility] Last Admin: 03/20/17 16:29 Dose: 5 mg Aspirin (Ecotrin -) 81 mg PO DAILY [facility] Last Admin: 03/20/17 09:07 Dose: 81 mg Atorvastatin Calcium (Lipitor -) 10 mg PO [facility] Heparin Sodium (Porcine) (Heparin -) 5,000 unit SQ TID [facility] Last Admin: 03/20/17 14:44 Dose: 5,000 unit CEFTRIAXONE IN IS-OSM DEXTROSE (Ceftriaxone 2 Gm-D5w Bag) 2 gm in 50 mls @ 100 mls/hr IVPB DAILY [facility] Last Admin: 03/20/17 09:04 Dose: 100 mls/hr Dextrose/Sodium Chloride (D5-1/2ns -) 1,000 mls @ 50 mls/hr IV ASDIR [facility] Last Admin: 03/20/17 14:44 Dose: 50 mls/hr Lisinopril (Prinivil) 20 mg PO DAILY [facility] Last Admin: 03/20/17 16:29 Dose: 20 mg Vital Signs - 24 hr 03/19/17 03/20/17 03/20/17 22:00 01:59 05:01 Temperature 97.4 F L 98.4 F 98.8 F Pulse Rate 66 65 64 Respiratory 18 18 18 Rate Blood Pressure 167/92 198/94 186/96 O2 Sat by Pulse 99 Oximetry (%) 03/20/17 03/20/17 03/20/17 09:00 10:12 14:00 Temperature 98.3 F Pulse Rate 69 75 Respiratory 18 Rate Blood Pressure 187/102 188/96 O2 Sat by Pulse 96 Oximetry (%) Intake & Output 03/18/17 03/19/17 03/20/17 03/21/17 07:59 07:59 07:59 07:59 Intake Total 2200 1320 825 Output Total 1700 900 Balance 500 420 825 Weight 120 lb NAD, anxious JVD flat, neck supple rrr nl s1, s2 2/6 murmur at lsb. nd pmi ctab, nl effort + bs soft nt nd ext without e/c/c + dp/pt no jaundice, diaphoresis alert and oriented CBC, BMP 03/20/17 06:30 03/20/17 06:30 Laboratory Tests 03/19/17 03/19/17 03/20/17 06:20 13:07 06:30 Magnesium 2.0 D Total Bilirubin 0.5 D AST 78 H ALT 48 D Alkaline Phosphatase 54 Creatine Kinase 2121 H 1394 H Creatine Kinase Index 0.8 CK-MB (CK-2) 11.464 H Troponin I 0.44 H Albumin 3.0 L 03/20/17 06:30 Magnesium Total Bilirubin AST ALT Alkaline Phosphatase Creatine Kinase 1383 H Creatine Kinase Index 0.8 CK-MB (CK-2) 11.340 H Troponin I 0.28 H Albumin ekg: nsr, lad. non-specific diffuse t wave abnormalities slightly more prominent than on priors. tele: SR/sinus tach head ct: diffuse cerebral atrophy. chronic small vessel ischemia carotid u/s: no sig stenosis echo : 1+ lvh. nl sys fn. nl rv size/fn. mod lae. 1+ mr. mod tr. rvsp 40-50 echo 11/2016: nl lv/rv size/fn. mod nia. mod MR (eccentric). mod tr cxr: developing CHRIS infiltrate. a/p: 77 y/o with h/o htn (c/b htn urgency admit 11/2016), chronic lacunar infarcts, HL, possible dementia presents to ER after being found down outside for unknown amount of time/hypothermic on presentation. syncope/hypothermia - patient found down outside, possible syncope. utox negative. - head ct no acute pathology, carotid u/s unremarkable. - tele benign - no acs. ekg without acute ischemic changes. intermediate troponin elevation 2/2 rhabo. echo with nl systolic function. htn - elevated, lisinopril resumed today. con't norvasc. monitor for further uptitration. hld - rhabdo improving. statin initiated. monitor ck. rhabdo - IVF as needed per pmd.
[2017-03-21] MEDS: HEPARIN NA (PORCINE) 5,000 UNITS/ML 1ML VIAL SQ SCH ×3 (06:12→21:45)
[2017-03-21 07:52] LABS: BASO % 0.7 % (0-2.0); EOS % 1.3 % (0-4.5); HEMATOCRIT 36.5 % (32.4-45.2); HEMOGLOBIN 11.8 GM/dL (10.7-15.3); LYMPH % 17.2 % (8-40); MCH 26.1 pg (25.7-33.7); MCHC 32.3 g/dl (32.0-36.0); MEAN CELL VOLUME 80.9 fl (80-96); MONO % 11.6 % (3.8-10.2); NEUT % 69.2 % (42.8-82.8); PLATELET COUNT 229 K/MM3 (134-434); RBC 4.51 M/mm3 (3.60-5.2); RDW 14.9 % (11.6-15.6); WHITE BLOOD COUNT 4.8 K/mm3 (4.0-10.0)
[2017-03-21 08:11] LABS: ANION GAP 5 (8-16); BILIRUBIN,TOTAL 0.6 mg/dL (0.2-1.0); BLOOD UREA NITROGEN 16 mg/dL (7-18); CALCIUM 8.2 mg/dL (8.5-10.1); CHLORIDE 104 mmol/L (98-107); CO2 30 mmol/L (21-32); CREATININE 0.7 mg/dL (0.55-1.02); GLUCOSE,RANDOM 94 mg/dL (74-106); SGOT/AST 47 U/L (15-37); SGPT/ALT 41 U/L (12-78); SODIUM 139 mmol/L (136-145); TOT PROT 5.8 g/dl (6.4-8.2)
[2017-03-21 08:12] LABS: ALK PHOS 50 U/L (45-117)
[2017-03-21] MEDS: CEFTRIAXONE IN IS-OSM DEXTROSE 2 GM/50 ML BAG IVPB SCH (09:35)
[2017-03-21] MEDS: ASPIRIN COATED 81 MG TABLET.EC PO SCH (09:35)
[2017-03-21] MEDS: LISINOPRIL 20 MG TABLET (FP) PO SCH (09:36)
[2017-03-21] MEDS: amLODIPine BESYLATE 5 MG TABLET (FP) PO SCH (09:36)
--- NOTE | 2017-03-21 10:31 | PN ---
Physical Exam: SUBJECTIVE: Patient seen and examined at the bedside. As per RN, patient is ambulating with one assist to the bathroom. OBJECTIVE: PT to evaluate for possible rehab placement BP improving, on Lisinopril and Amlodopine Plavix x 3 months ordered as per neuro recommendations Fall risk Vital Signs Period Temp Pulse Resp BP Sys/Luz Pulse Ox Last 24 Hr 98.0 F-98.9 F 72-79 18-18 165-188/94-100 95 GENERAL: awake, more alert, answers appropriate, poor recall, oriented to name HEAD: Normal with no signs of trauma. EYES: PERRL, extraocular movements intact, sclera anicteric, conjunctiva clear. No ptosis. ENT: Ears normal, nares patent, oropharynx clear without exudates, moist mucous membranes. NECK: Trachea midline, full range of motion, supple. LUNGS: Breath sounds equal, no accessory muscle use. HEART:SR 60s on radiographer cardiac catheterization ABDOMEN: Soft, nontender, nondistended, normoactive bowel sounds, no guarding, no rebound, no hepatosplenomegaly, no masses. EXTREMITIES: no edema./+ left sided weakness 3/5 left arm, right arm 5/5 NEUROLOGICAL: Speech slightly slurred but improving since admission, gait not observed. PSYCH: lethargic, flat affect SKIN: Warm, dry, normal turgor, no rashes or lesions noted Laboratory Results - last 24 hr 03/20/17 03/20/17 03/21/17 06:30 10:05 07:30 WBC 4.8 RBC 4.51 Hgb 11.8 Hct 36.5 MCV 80.9 MCH 26.1 MCHC 32.3 RDW 14.9 Plt Count 229 MPV 10.0 Neutrophils % 69.2 Lymphocytes % 17.2 Monocytes % 11.6 H Eosinophils % 1.3 D Basophils % 0.7 Sodium 142 Potassium 3.9 Chloride 107 Carbon Dioxide 28 D Anion Gap 7 L BUN 15 D Creatinine 0.8 Creat Clearance w eGFR > 60 Random Glucose 102 D Calcium 8.4 L Total Bilirubin 0.5 D AST 78 H ALT 48 D Alkaline Phosphatase 54 Creatine Kinase 1394 H Cancelled Creatine Kinase Index 0.8 CK-MB (CK-2) 11.464 H Total Protein 5.8 L Albumin 3.0 L 03/21/17 07:30 WBC RBC Hgb Hct MCV MCH MCHC RDW Plt Count MPV Neutrophils % Lymphocytes % Monocytes % Eosinophils % Basophils % Sodium 139 Potassium 4.0 Chloride 104 Carbon Dioxide 30 Anion Gap 5 L BUN 16 Creatinine 0.7 Creat Clearance w eGFR > 60 Random Glucose 94 Calcium 8.2 L Total Bilirubin 0.6 AST 47 H D ALT 41 Alkaline Phosphatase 50 Creatine Kinase 675 H Creatine Kinase Index CK-MB (CK-2) Total Protein 5.8 L Albumin 3.0 L Active Medications Generic Name Dose Route Start Last Admin Trade Name Jemal PRN Reason Stop Dose Admin Amlodipine Besylate 5 mg 03/20/17 15:30 03/21/17 09:36 Norvasc - PO 5 mg DAILY [facility] Administration Aspirin 81 mg 03/19/17 10:45 03/21/17 09:35 Ecotrin - PO 81 mg DAILY [facility] Administration Atorvastatin Calcium 10 mg 03/19/17 22:00 Lipitor - PO HS [facility] Clopidogrel Bisulfate 75 mg 03/21/17 10:30 Plavix - PO DAILY [facility] Heparin Sodium (Porcine) 5,000 unit 03/19/17 14:00 03/21/17 06:12 Heparin - SQ 5,000 unit TID [facility] Administration CEFTRIAXONE IN IS-OSM DEXTROSE 2 gm in 50 mls @ 100 mls/hr 03/19/17 10:00 09:35 Ceftriaxone 2 Gm-D5w Bag IVPB 100 mls/hr DAILY [facility] Administration Lisinopril 20 mg 03/20/17 15:30 03/21/17 09:36 Prinivil PO 20 mg DAILY [facility] Administration ASSESSMENT/PLAN: Patient is a 77 year old female with a past medical history of dementia, hypertension, hyperlipidemia and UTI. (As per patient's sister Katarzyna, patient was non compliant with her home medications) Patient was brought into the ER via ambulance after being found on the doorsteps outside for unknown amount of time. EMS noted that she responded to painful stimuli but otherwise was not responsive. They were unable to get a pulse oxygenation, blood pressure, or temperature in the field. In the ED the patient remained minimally responsive and was unable to provide any history and was found to have a rectal temperature of 86.3f, and initially hypertensive in the 160s. On admission, warm saline was drip was initiated, nadiya hugger blanket placed with rectal probe monitor. On admission her lactic acid was 3.6, temp 86.3 rectal, her CK was 1619 and bun/ creat of 45/1.5. Her chest xray shows a developing left lung infiltrate. Imaging: Brain MRI results: - small acute right thalamic infarct - small chronic right pontine infarct - punctate chronic bilateral basal ganglia infarcts - advanced periventricular and subcortical chronic microvascular ischemic changes - multiple supratentorial and inratentorial chronic microbleeds Echo 03/16/2017: mild concentric left ventricular hypertrophy, LV fx normal, RV fx normal, LA mod dilated, mild MR, mod. TR, right ventricular systolic pressure elevated, moderate aortic sclerosis, no pericardial effusion. Carotid doppler 03/17/16: mild arth. disease, no sign. hemodynamic stenosis Neuro: Stroke, acute Syncope 2/2 Acute right thalmamic infarct as per MRI Brain MRi shows small acute right thamalic infarct with chronic infarcts and chronic microbleeds MRI findings discussed with Dr. Olivera, Neurologist Patient on ASA 81mg, Lipitor 10mg @ hs and Plavix added as per neuro recommendations with ASA therapy (Plavix for a 3 month period, then ASA alone) Patient has left sided weakness 3/5 left arm, right arm 5/5, will ambulate with PT to assess lower extremity function status Mental status improving, but has poor recall, has hx of dementia/forgetfulness as per family Swallow eval shows no difficulty swallowing, on regular diet Monitor neuro status Cardiology Rule out ACS Trops 0.02, 0.04, 0.06, 0.44, 0.28 document peak EKG with st/t wave abnormality, consider ant ischemia Monitor on tele which shows SR 60s Echo as above Hypertension, improving Restart home dose of Linisinopril and Amlodopine 5mg Monitor BP in the setting of acute stroke Hyperlipidemia: Lipid panel reviewed, started on Lipitor 10mg @ hs ID: Sepsis ruled out On presentation was hypothermia, bradycardic, AMS with lactic acidosis Blood and urine cultures negative to date Lactic acidosis resolved after fluid bolus, Hypothermia resolved, mental status improving On prophylactic Ceftriaxone as per ID pending cultures discontinue Ceftriaxone = ID following Pulmonary: Aspiration pna? Chest xray with possible developing left lung infiltrate Monitor respiratory status, tolerating room air, stable 02 WBC stable, pulm following Renal FREDIS/Rhabdo, resolving Pt found on floor outside for unknown amt of time FREDIS resolving on IVF Rhabdo: CPK 2600 >600 daily CPK, stop IVF F.E.N. Fluids: Tolerating PO Electrolytes: monitor cmp Nutrition: regular diet Prophylaxis: DVT: Heparin TID GI: Protonix IV 40mg daily Disposition. Patient was initially for ICU admission on presentation, then downgraded to tele unit. Discharge planning to SNF once medically cleared. full code. Visit type - Emergency Visit Emergency Visit: Yes ED Registration Date: 03/18/17 Care time: The patient presented to the Emergency Department on the above date and was hospitalized for further evaluation of their emergent condition. - New Patient This patient is new to me today: No - Critical Care Critical Care patient: No - Discharge Referral Referred to [facility] Med P.C.: No
--- NOTE | 2017-03-21 10:46 | PN ---
Progress Note (short form) - Note Progress Note: Resting in NAD. Remains forgetful/confused. No acute events overnight. Intake & Output 03/18/17 03/19/17 03/20/17 03/21/17 23:59 23:59 23:59 23:59 Intake Total 2200 300 1845 800 Output Total 1700 900 Balance 500 -600 1845 800 Weight 120 lb 120 lb Last Vital Signs Temp Pulse Resp BP Pulse Ox 98.9 F 72 18 180/98 95 03/21/17 06:00 03/21/17 06:00 03/21/17 06:00 03/21/17 06:00 03/20/17 21:00 Active Medications Amlodipine Besylate (Norvasc -) 5 mg PO DAILY [facility] [place] Last Admin: 03/21/17 09:36 Dose: 5 mg Aspirin (Ecotrin -) 81 mg PO DAILY [facility] Last Admin: 03/21/17 09:35 Dose: 81 mg Atorvastatin Calcium (Lipitor -) 10 mg PO HS [facility] Clopidogrel Bisulfate (Plavix -) 75 mg PO DAILY [facility] Heparin Sodium (Porcine) (Heparin -) 5,000 unit SQ TID [facility] [place] Last Admin: 03/21/17 06:12 Dose: 5,000 unit CEFTRIAXONE IN IS-OSM DEXTROSE (Ceftriaxone 2 Gm-D5w Bag) 2 gm in 50 mls @ 100 mls/hr IVPB DAILY [facility] [place] Last Admin: 03/21/17 09:35 Dose: 100 mls/hr Lisinopril (Prinivil) 20 mg PO DAILY [facility] [place] Last Admin: 03/21/17 09:36 Dose: 20 mg Constitutional: Yes: NAD, Thin, confusion Eyes: Yes: EOM Intact HENT: Yes: Normocephalic Neck: Yes: Trachea Midline Cardiovascular: Yes: Regular Rate and Rhythm, S1, S2 Respiratory: Yes: few scattered rhonchi Gastrointestinal: Yes: Normal Bowel Sounds Edema: No Neurological: Yes: Confusion Labs: Laboratory Results - last 24 hr 03/20/17 03/20/17 03/21/17 06:30 10:05 07:30 WBC 4.8 RBC 4.51 Hgb 11.8 Hct 36.5 MCV 80.9 MCH 26.1 MCHC 32.3 RDW 14.9 Plt Count 229 MPV 10.0 Neutrophils % 69.2 Lymphocytes % 17.2 Monocytes % 11.6 H Eosinophils % 1.3 D Basophils % 0.7 Sodium 142 Potassium 3.9 Chloride 107 Carbon Dioxide 28 D Anion Gap 7 L BUN 15 D Creatinine 0.8 Creat Clearance w eGFR > 60 Random Glucose 102 D Calcium 8.4 L Total Bilirubin 0.5 D AST 78 H ALT 48 D Alkaline Phosphatase 54 Creatine Kinase 1394 H Cancelled Creatine Kinase Index 0.8 CK-MB (CK-2) 11.464 H Total Protein 5.8 L Albumin 3.0 L 03/21/17 07:30 WBC RBC Hgb Hct MCV MCH MCHC RDW Plt Count MPV Neutrophils % Lymphocytes % Monocytes % Eosinophils % Basophils % Sodium 139 Potassium 4.0 Chloride 104 Carbon Dioxide 30 Anion Gap 5 L BUN 16 Creatinine 0.7 Creat Clearance w eGFR > 60 Random Glucose 94 Calcium 8.2 L Total Bilirubin 0.6 AST 47 H D ALT 41 Alkaline Phosphatase 50 Creatine Kinase 675 H Creatine Kinase Index CK-MB (CK-2) Total Protein 5.8 L Albumin 3.0 L Problem List - Problems (1) Anemia Code(s): D64.9 - ANEMIA, UNSPECIFIED (2) Altered mental status Code(s): R41.82 - ALTERED MENTAL STATUS, UNSPECIFIED Qualifiers: Altered mental status type: unspecified Qualified Code(s): R41.82 - Altered mental status, unspecified (3) Hypothermia Code(s): T68.XXXA - HYPOTHERMIA, INITIAL ENCOUNTER Qualifiers: Encounter type: initial encounter Qualified Code(s): T68.XXXA - Hypothermia , initial encounter (4) Rhabdomyolysis Code(s): M62.82 - RHABDOMYOLYSIS Qualifiers: Rhabdomyolysis type: non-traumatic Qualified Code(s): M62.82 - Rhabdomyolysis (5) Confusion Code(s): R41.0 - DISORIENTATION, UNSPECIFIED (6) Hypertensive emergency Code(s): I16.1 - HYPERTENSIVE EMERGENCY (7) Pneumonia Code(s): J18.9 - PNEUMONIA, UNSPECIFIED ORGANISM Assessment/Plan Empiric Rocephin per ID O2 as needed Fall precautions Dr Fontaine
[2017-03-21] MEDS: CLOPIDOGREL BISULFATE 75 MG TABLET (FP) PO SCH (11:45)
--- NOTE | 2017-03-21 15:18 | PN ---
Progress Note, Physician History of Present Illness: stable no new events - Current Medication List Current Medications: Active Medications Amlodipine Besylate (Norvasc -) 5 mg PO DAILY [facility] Last Admin: 03/21/17 09:36 Dose: 5 mg Aspirin (Ecotrin -) 81 mg PO DAILY [facility] Last Admin: 03/21/17 09:35 Dose: 81 mg Atorvastatin Calcium (Lipitor -) 10 mg PO HS [facility] Atorvastatin Calcium (Lipitor -) 20 mg PO HS [facility] Clopidogrel Bisulfate (Plavix -) 75 mg PO DAILY [facility] Last Admin: 03/21/17 11:45 Dose: 75 mg Heparin Sodium (Porcine) (Heparin -) 5,000 unit SQ TID [facility] Last Admin: 03/21/17 14:12 Dose: 5,000 unit - Objective Vital Signs: Vital Signs Temperature 98.2 F 03/21/17 13:35 Pulse Rate 72 03/21/17 13:35 Respiratory Rate 24 03/21/17 13:35 Blood Pressure 164/82 03/21/17 13:35 O2 Sat by Pulse Oximetry (%) 98 03/21/17 10:00 Constitutional: Yes: No Distress, Calm Cardiovascular: Yes: Regular Rate and Rhythm Respiratory: Yes: Regular, Rhonchi Gastrointestinal: Yes: Normal Bowel Sounds, Soft Musculoskeletal: Yes: WNL Extremities: Yes: WNL Neurological: Yes: Alert, Confusion Psychiatric: Yes: Alert Labs: CBC, BMP 03/21/17 07:30 03/21/17 07:30 INR, PTT INR 1.04 (0.82-1.09) 03/18/17 09:16 Assessment/Plan - Problems (1) Altered mental status Code(s): R41.82 - ALTERED MENTAL STATUS, UNSPECIFIED Qualifiers: Altered mental status type: unspecified Qualified Code(s): R41.82 - Altered mental status, unspecified (2) Hypothermia Code(s): T68.XXXA - HYPOTHERMIA, INITIAL ENCOUNTER Qualifiers: Encounter type: initial encounter Qualified Code(s): T68.XXXA - Hypothermia , initial encounter patient after evaluating i am sure patient might have rhabdo neuro note noted plan stop all abx will watch without abx rest continue current mgmt rest as per primary
--- NOTE | 2017-03-21 15:34 | PN ---
Progress Note, CARDIAC NURSE SPECIALIST - Note Progress Note: 77 yo seen as a follow up to [facility] with recommendations for regular solids and thin liquids. Pt is consuming meals without s/s of dysphagia and / or aspiration at this time. Chart review indicates pt is consuming 75 -100% of meals. Recommendations: continue current diet of regular and thin liquids as tolerated. CARDIAC NURSE SPECIALIST will revise and update diet plan as needed.
--- NOTE | 2017-03-21 16:58 | PN ---
Progress Note (short form) - Note Progress Note: CC: syncope o: Plavix added today. denies cp sob palps dizzy. Appears confused. Current Medications Amlodipine Besylate (Norvasc -) 5 mg PO DAILY [facility] Last Admin: 03/21/17 09:36 Dose: 5 mg Aspirin (Ecotrin -) 81 mg PO DAILY [facility] Last Admin: 03/21/17 09:35 Dose: 81 mg Atorvastatin Calcium (Lipitor -) 10 mg PO [facility] Clopidogrel Bisulfate (Plavix -) 75 mg PO DAILY [facility] Last Admin: 03/21/17 11:45 Dose: 75 mg Heparin Sodium (Porcine) (Heparin -) 5,000 unit SQ TID [facility] Last Admin: 03/21/17 14:12 Dose: 5,000 unit Lisinopril (Prinivil) 20 mg PO DAILY [facility] Vital Signs - 24 hr 03/20/17 03/20/17 03/20/17 18:40 21:00 22:00 Temperature 98.5 F 98.1 F Pulse Rate 79 72 Respiratory 18 18 18 Rate Blood Pressure 165/94 176/96 O2 Sat by Pulse 95 Oximetry (%) 03/21/17 03/21/17 03/21/17 02:00 06:00 10:00 Temperature 98.0 F 98.9 F 98.4 F Pulse Rate 72 72 78 Respiratory 18 18 18 Rate Blood Pressure 182/100 180/98 157/89 O2 Sat by Pulse 98 Oximetry (%) 03/21/17 13:35 Temperature 98.2 F Pulse Rate 72 Respiratory 24 Rate Blood Pressure 164/82 O2 Sat by Pulse Oximetry (%) Intake & Output 03/19/17 03/20/17 03/21/17 03/22/17 07:59 07:59 07:59 07:59 Intake Total 2200 1320 1625 Output Total 1700 900 Balance 957 748 8464 Weight 120 lb NAD, calm JVD flat, neck supple rrr nl s1, s2 2/6 murmur at lsb. nd pmi ctab, nl effort + bs soft nt nd ext without e/c/c + dp/pt no jaundice, diaphoresis alert and oriented CBC, BMP 03/21/17 07:30 03/21/17 07:30 Laboratory Tests 03/21/17 07:30 Total Bilirubin 0.6 AST 47 H D ALT 41 Alkaline Phosphatase 50 Creatine Kinase 675 H Creatine Kinase Index 0.5 CK-MB (CK-2) 3.914 H Albumin 3.0 L ekg: nsr, lad. non-specific diffuse t wave abnormalities slightly more prominent than on priors. tele: SR, sinus tach, artifact brain mri: non-hemorrhagic small acute right thalamic infarct. chronic right pontine infarct and punctate basal ganglia infarcts. Microvascular changes. Numerous microbleeds noted. patent intracranial vessels. head ct: diffuse cerebral atrophy. chronic small vessel ischemia carotid u/s: no sig stenosis echo : 1+ lvh. nl sys fn. nl rv size/fn. mod lae. 1+ mr. mod tr. rvsp 40-50 echo 11/2016: nl lv/rv size/fn. mod nia. mod MR (eccentric). mod tr cxr: developing CHRIS infiltrate. a/p: 77 y/o with h/o htn (c/b htn urgency admit 11/2016), chronic lacunar infarcts, HL, possible dementia presents to ER after being found down outside for unknown amount of time/hypothermic on presentation now found to have cva. CVA/syncope/hypothermia - patient found down outside, possible syncope. utox negative. - no acs. ekg without acute ischemic changes. intermediate troponin elevation 2/2 rhabo. echo with nl systolic function. - head ct no acute pathology, carotid u/s unremarkable. But brain MRI shows acute right thalamic infarct. Neuro following, plavix added to low dose asa. - tele benign htn - remains elevated, uptitrate norvasc to 10. con't home lisinopril. hld - rhabdo improving. statin initiated. monitor ck. rhabdo - s/p IVF
[2017-03-21] MEDS ORDERED: amLODIPine BESYLATE 5 MG TABLET (FP) PO ONE (17:06)
[2017-03-21] MEDS: ATORVASTATIN CA 10 MG TABLET (FP) PO SCH (21:47)
[2017-03-21] MEDS ORDERED: ATORVASTATIN CA 20 MG TABLET (FP) PO SCH (22:00)
[2017-03-22] MEDS ORDERED: amLODIPine BESYLATE 5 MG TABLET (FP) PO ONE (01:43)
[2017-03-22] MEDS: HEPARIN NA (PORCINE) 5,000 UNITS/ML 1ML VIAL SQ SCH ×3 (05:44→21:22)
[2017-03-22 08:31] LABS: BASO % 0.5 % (0-2.0); EOS % 0.9 % (0-4.5); HEMATOCRIT 37.4 % (32.4-45.2); HEMOGLOBIN 11.9 GM/dL (10.7-15.3); LYMPH % 14.4 % (8-40); MCHC 31.9 g/dl (32.0-36.0); MEAN CELL VOLUME 81.6 fl (80-96); MONO % 11.4 % (3.8-10.2); NEUT % 72.8 % (42.8-82.8); PLATELET COUNT 243 K/MM3 (134-434); RBC 4.59 M/mm3 (3.60-5.2); RDW 15.5 % (11.6-15.6); WHITE BLOOD COUNT 5.6 K/mm3 (4.0-10.0)
[2017-03-22 08:57] LABS: ALK PHOS 49 U/L (45-117); ANION GAP 8 (8-16); BILIRUBIN,TOTAL 0.4 mg/dL (0.2-1.0); BLOOD UREA NITROGEN 17 mg/dL (7-18); CHLORIDE 105 mmol/L (98-107); CO2 27 mmol/L (21-32); CREATININE 0.6 mg/dL (0.55-1.02); GLUCOSE,RANDOM 85 mg/dL (74-106); POTASSIUM 4.5 mmol/L (3.5-5.1); SGPT/ALT 35 U/L (12-78); SODIUM 140 mmol/L (136-145)
[2017-03-22 08:59] LABS: SGOT/AST 31 U/L (15-37); TOT PROT 5.7 g/dl (6.4-8.2)
[2017-03-22] MEDS: CLOPIDOGREL BISULFATE 75 MG TABLET (FP) PO SCH (09:40)
[2017-03-22] MEDS: LISINOPRIL 20 MG TABLET (FP) PO SCH (09:40)
[2017-03-22] MEDS: amLODIPine BESYLATE 10 MG TABLET (FP) PO SCH (09:40)
[2017-03-22] MEDS: ASPIRIN COATED 81 MG TABLET.EC PO SCH (09:40)
--- NOTE | 2017-03-22 11:28 | PN ---
Progress Note (short form) - Note Progress Note: Resting in NAD. No significant change in overall condition. No acute events overnight. Intake & Output 03/19/17 03/20/17 03/21/17 03/22/17 23:59 23:59 23:59 23:59 Intake Total 300 1845 1200 Output Total 900 Balance -600 1845 1200 Weight 120 lb Last Vital Signs Temp Pulse Resp BP Pulse Ox 98.0 F 75 16 132/76 97 03/22/17 10:00 03/22/17 10:00 03/22/17 10:00 03/22/17 10:00 03/22/17 10:00 Active Medications Amlodipine Besylate (Norvasc -) 10 mg PO DAILY [facility] Last Admin: 03/22/17 09:40 Dose: 10 mg Aspirin (Ecotrin -) 81 mg PO DAILY [facility] Last Admin: 03/22/17 09:40 Dose: 81 mg Atorvastatin Calcium (Lipitor -) 10 mg PO HS [facility] Last Admin: 03/21/17 21:47 Dose: 10 mg Clopidogrel Bisulfate (Plavix -) 75 mg PO DAILY [facility] Last Admin: 03/22/17 09:40 Dose: 75 mg Heparin Sodium (Porcine) (Heparin -) 5,000 unit SQ TID [facility] Last Admin: 03/22/17 05:44 Dose: 5,000 unit Lisinopril (Prinivil) 20 mg PO DAILY [facility] Last Admin: 03/22/17 09:40 Dose: 20 mg Constitutional: Yes: NAD, Thin, confusion Eyes: Yes: EOM Intact HENT: Yes: Normocephalic Neck: Yes: Trachea Midline Cardiovascular: Yes: Regular Rate and Rhythm, S1, S2 Respiratory: Yes: few scattered rhonchi Gastrointestinal: Yes: Normal Bowel Sounds Edema: No Neurological: Yes: Confusion Labs: Laboratory Results - last 24 hr 03/22/17 03/22/17 08:20 08:20 WBC 5.6 RBC 4.59 Hgb 11.9 Hct 37.4 MCV 81.6 MCH 26.0 MCHC 31.9 L RDW 15.5 Plt Count 243 MPV 10.0 Neutrophils % 72.8 Lymphocytes % 14.4 Monocytes % 11.4 H Eosinophils % 0.9 Basophils % 0.5 Sodium 140 Potassium 4.5 Chloride 105 Carbon Dioxide 27 Anion Gap 8 BUN 17 Creatinine 0.6 Creat Clearance w eGFR > 60 Random Glucose 85 Calcium 9.0 Total Bilirubin 0.4 D AST 31 D ALT 35 Alkaline Phosphatase 49 Total Protein 5.7 L Albumin 3.0 L Problem List - Problems (1) Anemia Code(s): D64.9 - ANEMIA, UNSPECIFIED (2) Altered mental status Code(s): R41.82 - ALTERED MENTAL STATUS, UNSPECIFIED Qualifiers: Altered mental status type: unspecified Qualified Code(s): R41.82 - Altered mental status, unspecified (3) Hypothermia Code(s): T68.XXXA - HYPOTHERMIA, INITIAL ENCOUNTER Qualifiers: Encounter type: initial encounter Qualified Code(s): T68.XXXA - Hypothermia , initial encounter (4) Rhabdomyolysis Code(s): M62.82 - RHABDOMYOLYSIS Qualifiers: Rhabdomyolysis type: non-traumatic Qualified Code(s): M62.82 - Rhabdomyolysis (5) Confusion Code(s): R41.0 - DISORIENTATION, UNSPECIFIED (6) Hypertensive emergency Code(s): I16.1 - HYPERTENSIVE EMERGENCY (7) Pneumonia Code(s): J18.9 - PNEUMONIA, UNSPECIFIED ORGANISM Assessment/Plan Currently off ABX O2 as needed Fall precautions No Pulmonary contraindication for D/C planning Dr Fontaine
--- NOTE | 2017-03-22 11:52 | PN ---
Progress Note (short form) - Note Progress Note: s: no cp sob palps dizzy o: Vital Signs Period Temp Pulse Resp BP Sys/Luz Pulse Ox Last 24 Hr 98.0 F-98.2 F 69-75 16-24 132-183/75-94 96-97 NAD, alert not oriented JVD flat, neck supple rrr nl s1, s2 2/6 murmur at lsb. ctab, nl effort + bs soft nt nd ext without e/c/c no jaundice, diaphoresis Current Medications Generic Name Dose Route Start Last Admin Trade Name Jemal PRN Reason Stop Dose Admin Amlodipine Besylate 10 mg 03/22/17 10:00 03/22/17 09:40 Norvasc - PO 10 mg DAILY [facility] Administration Aspirin 81 mg 03/19/17 10:45 03/22/17 09:40 Ecotrin - PO 81 mg DAILY [facility] Administration Atorvastatin Calcium 10 mg 03/19/17 22:00 03/21/17 21:47 Lipitor - PO 10 mg HS [facility] Administration Clopidogrel Bisulfate 75 mg 03/21/17 10:30 03/22/17 09:40 Plavix - PO 75 mg DAILY [facility] Administration Heparin Sodium (Porcine) 5,000 unit 03/19/17 14:00 03/22/17 05:44 Heparin - SQ 5,000 unit TID [facility] Administration Lisinopril 20 mg 03/22/17 10:00 03/22/17 09:40 Prinivil PO 20 mg DAILY [facility] Administration CBC, BMP 03/22/17 08:20 03/22/17 08:20 ekg: nsr, lad. non-specific diffuse t wave abnormalities slightly more prominent than on priors. tele: SR, artifact brain mri: non-hemorrhagic small acute right thalamic infarct. chronic right pontine infarct and punctate basal ganglia infarcts. Microvascular changes. Numerous microbleeds noted. patent intracranial vessels. head ct: diffuse cerebral atrophy. chronic small vessel ischemia carotid u/s: no sig stenosis echo : 1+ lvh. nl sys fn. nl rv size/fn. mod lae. 1+ mr. mod tr. rvsp 40-50 echo 11/2016: nl lv/rv size/fn. mod nia. mod MR (eccentric). mod tr a/p: 77 y/o with h/o htn (c/b htn urgency admit 11/2016), chronic lacunar infarcts, HL, possible dementia presents to ER after being found down outside for unknown amount of time/hypothermic on presentation now found to have cva. CVA/syncope/hypothermia - patient found down outside, possible syncope. utox negative. - no acs. ekg without acute ischemic changes. intermediate troponin elevation 2/2 rhabo. echo with nl systolic function. - head ct no acute pathology, carotid u/s unremarkable. But brain MRI shows acute right thalamic infarct. Neuro following, plavix added to low dose asa. - tele benign, can dc tele htn - cont current meds hld - rhabdo improving. statin initiated. monitor ck. rhabdo - s/p IVF
--- NOTE | 2017-03-22 13:33 | PN ---
Physical Exam: SUBJECTIVE: Patient seen and examined at bedside. Voices no complaints, feels ready to go home. OBJECTIVE: Vital Signs Period Temp Pulse Resp BP Sys/Luz Pulse Ox Last 24 Hr 98.0 F-98.2 F 69-75 16-24 132-183/75-94 96-97 GENERAL: The patient is awake, alert, and fully oriented, in no acute distress. HEAD: Normal with no signs of trauma. EYES: PERRL, extraocular movements intact, sclera anicteric, conjunctiva clear. No ptosis. LUNGS: Breath sounds equal, clear to auscultation bilaterally, no wheezes, no crackles, no accessory muscle use. HEART: Regular rate and rhythm, S1, S2 ABDOMEN: Soft, nontender, nondistended, normoactive bowel sounds, no guarding, no rebound UPPER EXTREMITIES: 2+ pulses, warm, well-perfused, no edema; 5/5 motor and sensory LOWER EXTREMITIES: 2+ pulses, warm, well-perfused, no edema; 5/5 motor and sensory; SLR to 90 degress bilaterally NEUROLOGICAL: Cranial nerves II through XII grossly intact. Normal speech. PSYCH: Normal mood, normal affect. SKIN: Warm, dry, normal turgor Laboratory Results - last 24 hr 03/22/17 03/22/17 08:20 08:20 WBC 5.6 RBC 4.59 Hgb 11.9 Hct 37.4 MCV 81.6 MCH 26.0 MCHC 31.9 L RDW 15.5 Plt Count 243 MPV 10.0 Neutrophils % 72.8 Lymphocytes % 14.4 Monocytes % 11.4 H Eosinophils % 0.9 Basophils % 0.5 Sodium 140 Potassium 4.5 Chloride 105 Carbon Dioxide 27 Anion Gap 8 BUN 17 Creatinine 0.6 Creat Clearance w eGFR > 60 Random Glucose 85 Calcium 9.0 Total Bilirubin 0.4 D AST 31 D ALT 35 Alkaline Phosphatase 49 Total Protein 5.7 L Albumin 3.0 L Active Medications Generic Name Dose Route Start Last Admin Trade Name Freq PRN Reason Stop Dose Admin Amlodipine Besylate 10 mg 03/22/17 10:00 03/22/17 09:40 Norvasc - PO 10 mg DAILY EARL Administration Aspirin 81 mg 03/19/17 10:45 03/22/17 09:40 Ecotrin - PO 81 mg DAILY EAR[facility] Administration Atorvastatin Calcium 10 mg 03/19/17 22:00 03/21/17 21:47 Lipitor - PO 10 mg HS EARL Administration Clopidogrel Bisulfate 75 mg 03/21/17 10:30 03/22/17 09:40 Plavix - PO 75 mg DAILY [facility] Administration Heparin Sodium (Porcine) 5,000 unit 03/19/17 14:00 03/22/17 05:44 Heparin - SQ 5,000 unit TID EAR[facility] Administration Lisinopril 20 mg 03/22/17 10:00 03/22/17 09:40 Prinivil PO 20 mg DAILY EAR[facility] Administration ASSESSMENT/PLAN 77 year-old female with a PMH significant for HTN, HLD, dementia, and recurrent UTIs. Found down in the cold in front of her apartment, unresponsive. Found to have had acute CVA. Hypothermia --rectal temp in ED 86.3 F --warmed IV fluids, Micky hugger with excellent response, vital signs normalized and mentation returned to baseline Acute CVA --03/18 MRI brain: small acute right thalamic infarct; multiple chronic infarcts and microbleeds --no significant carotid artery disease --continue ASA, Plavix, Lipitor Rhabdomyalisis --CPK 1383--675 --restart gentle IV fluids --monitor CPK closely as patient started on statin Elevated troponins --intermediate troponin elevation likely secondary to rhabdo --ECG not suggestive of acute ischemic event --no events on telemetry --very low suspicion for ACS Hypertension --mild concentric LVH on echo --BP slightly better on increased amlodipine, continue lisinopril FREDIS, resolved --Cr 1.5 on admission today 0.6 Lactic acidosis, resolved Left upper lobe infiltrate --has been followed by ID; was started on empiric antibiotics but then dc'd as patient was without fever, leukocytosis, or symptoms of pneumonia --continue to monitor off antibiotics FEN Fluids: NS @ 50mL/hr Electrolytes: replete as indicated Nutrition: regular diet Physical therapy evaluation DVT prophylaxis: subq heparin Dispo: continues to require inpatient care. Likely discharge in morning after PT. Full code. Visit type - Emergency Visit Emergency Visit: Yes ED Registration Date: 03/18/17 Care time: The patient presented to the Emergency Department on the above date and was hospitalized for further evaluation of their emergent condition. - New Patient This patient is new to me today: Yes Date on this admission: 03/22/17 - Critical Care Critical Care patient: No
--- NOTE | 2017-03-22 15:27 | PN ---
Progress Note, Physician History of Present Illness: stable says she has no problems just weak still abit confused according to the staff - Current Medication List Current Medications: Active Medications Amlodipine Besylate (Norvasc -) 10 mg PO DAILY [facility] Last Admin: 03/22/17 09:40 Dose: 10 mg Aspirin (Ecotrin -) 81 mg PO DAILY [facility] Last Admin: 03/22/17 09:40 Dose: 81 mg Atorvastatin Calcium (Lipitor -) 10 mg PO HS [facility] Last Admin: 03/21/17 21:47 Dose: 10 mg Clopidogrel Bisulfate (Plavix -) 75 mg PO DAILY [facility] Last Admin: 03/22/17 09:40 Dose: 75 mg Heparin Sodium (Porcine) (Heparin -) 5,000 unit SQ TID [facility] Last Admin: 03/22/17 14:07 Dose: 5,000 unit Sodium Chloride (Normal Saline -) 1,000 mls @ 150 mls/hr IV ASDIR [facility] Lisinopril (Prinivil) 20 mg PO DAILY [facility] Last Admin: 03/22/17 09:40 Dose: 20 mg - Objective Vital Signs: Vital Signs Temperature 98.5 F 03/22/17 13:10 Pulse Rate 87 03/22/17 13:10 Respiratory Rate 20 03/22/17 13:10 Blood Pressure 158/79 03/22/17 13:10 O2 Sat by Pulse Oximetry (%) 97 03/22/17 10:00 Constitutional: Yes: No Distress, Calm Neck: Yes: Supple Cardiovascular: Yes: Regular Rate and Rhythm Respiratory: Yes: Regular, CTA Bilaterally Gastrointestinal: Yes: Normal Bowel Sounds, Soft Musculoskeletal: Yes: WNL Extremities: Yes: WNL Neurological: Yes: Alert, Other Psychiatric: Yes: Alert Labs: CBC, BMP 03/22/17 08:20 03/22/17 08:20 INR, PTT INR 1.04 (0.82-1.09) 03/18/17 09:16 Assessment/Plan Problem List - Problems (1) Anemia Code(s): D64.9 - ANEMIA, UNSPECIFIED (2) Altered mental status Code(s): R41.82 - ALTERED MENTAL STATUS, UNSPECIFIED Qualifiers: Altered mental status type: unspecified Qualified Code(s): R41.82 - Altered mental status, unspecified (3) Hypothermia Code(s): T68.XXXA - HYPOTHERMIA, INITIAL ENCOUNTER Qualifiers: Encounter type: initial encounter Qualified Code(s): T68.XXXA - Hypothermia , initial encounter (4) Rhabdomyolysis Code(s): M62.82 - RHABDOMYOLYSIS Qualifiers: Rhabdomyolysis type: non-traumatic Qualified Code(s): M62.82 - Rhabdomyolysis (5) Confusion Code(s): R41.0 - DISORIENTATION, UNSPECIFIED (6) Hypertensive emergency Code(s): I16.1 - HYPERTENSIVE EMERGENCY (7) Pneumonia Code(s): J18.9 - PNEUMONIA, UNSPECIFIED ORGANISM plan stable off of abx continue to monitor rest as per primary
[2017-03-22] MEDS: SODIUM CHLORIDE 1,000 ML IV SCH ×2 (15:49→17:43)
[2017-03-22] MEDS ORDERED: hydrALAZINE HCL 10 MG TABLET PO ONE (17:31)
[2017-03-22] MEDS ORDERED: FUROSEMIDE 40 MG/4 ML INJECTABLE VIAL IVPUSH ONE (17:35)
[2017-03-22] MEDS: ATORVASTATIN CA 10 MG TABLET (FP) PO SCH (21:22)
[2017-03-23] MEDS: HEPARIN NA (PORCINE) 5,000 UNITS/ML 1ML VIAL SQ SCH ×3 (05:48→22:13)
--- NOTE | 2017-03-23 06:04 | DS ---
Physical Exam: SUBJECTIVE: Patient seen and examined at bedside. OBJECTIVE: Vital Signs Period Temp Pulse Resp BP Sys/Luz Pulse Ox Last 24 Hr 98.0 F-98.5 F 72-102 16-20 130-179/72-95 97-97 PHYSICAL EXAM GENERAL: The patient is awake, alert, and fully oriented, in no acute distress. HEAD: Normal with no signs of trauma. EYES: PERRL, extraocular movements intact, sclera anicteric, conjunctiva clear. No ptosis. LUNGS: Breath sounds equal, clear to auscultation bilaterally, no wheezes, no crackles, no accessory muscle use. HEART: Regular rate and rhythm, S1, S2 ABDOMEN: Soft, nontender, nondistended, normoactive bowel sounds, no guarding, no rebound UPPER EXTREMITIES: 2+ pulses, warm, well-perfused, no edema; 5/5 motor and sensory LOWER EXTREMITIES: 2+ pulses, warm, well-perfused, no edema; 5/5 motor and sensory; SLR to 90 degress bilaterally NEUROLOGICAL: Cranial nerves II through XII grossly intact. Normal speech. PSYCH: Normal mood, normal affect. SKIN: Warm, dry, normal turgor LABS Laboratory Results - last 24 hr 03/22/17 03/22/17 08:20 08:20 WBC 5.6 RBC 4.59 Hgb 11.9 Hct 37.4 MCV 81.6 MCH 26.0 MCHC 31.9 L RDW 15.5 Plt Count 243 MPV 10.0 Neutrophils % 72.8 Lymphocytes % 14.4 Monocytes % 11.4 H Eosinophils % 0.9 Basophils % 0.5 Sodium 140 Potassium 4.5 Chloride 105 Carbon Dioxide 27 Anion Gap 8 BUN 17 Creatinine 0.6 Creat Clearance w eGFR > 60 Random Glucose 85 Calcium 9.0 Total Bilirubin 0.4 D AST 31 D ALT 35 Alkaline Phosphatase 49 Total Protein 5.7 L Albumin 3.0 L HOSPITAL COURSE: Date of Admission:03/18/17 Date of Discharge: 03/23/17 ASSESSMENT/PLAN 77 year-old female with a PMH significant for HTN, HLD, dementia, and recurrent UTIs. Found down in the cold in front of her apartment, unresponsive. Found to have had acute CVA. Hypothermia --rectal temp in ED 86.3 F --warmed IV fluids, Micky hugger with excellent response, vital signs normalized and mentation returned to baseline Acute CVA --03/18 MRI brain: small acute right thalamic infarct; multiple chronic infarcts and microbleeds --no significant carotid artery disease --continue ASA, Plavix, Lipitor --per neuro, continue Plavix and ASA 81mg for 3 months Rhabdomyalisis, resolved --CPK 1383--675 Elevated troponins --intermediate troponin elevation likely secondary to rhabdo --ECG not suggestive of acute ischemic event --no events on telemetry --very low suspicion for ACS Hypertension --mild concentric LVH on echo --BP improved on increased amlodipine, continue lisinopril FREDIS, resolved --Cr 1.5 on admission today 0.6 at time of discharge Lactic acidosis, resolved Left upper lobe infiltrate --has been followed by ID; was started on empiric antibiotics but then dc'd as patient was without fever, leukocytosis, or symptoms of pneumonia --continue to monitor off antibiotics Minutes to complete discharge: 35 Discharge Summary Reason For Visit: ACUTE KIDNEY INJURY, HYPOTHERMIA, RHABDOMYOLYSIS, Current Active Problems FREDIS (acute kidney injury) (Acute) Altered mental status (Acute) Anemia (Acute) Hypothermia (Acute) Pneumonia (Acute) Rhabdomyolysis (Acute) Condition: Improved - Instructions Diet, Activity, Other Instructions: A prescription has been sent to your pharmacy for Plavix which is a blood- thinning medication. You should take this medication for a total of 90 days. You will need to follow up with a primary care provider. You may choose to follow up with Dr. Patel at the [facility] within one week of your discharge. Her contact information is enclosed. Return to the emergency department for any new or worsening symptoms. Referrals: Damaso Patel MD [Staff Physician] - 1 Week Disposition: HOME - Home Medications Comprehensive Discharge Medication List: Ambulatory Orders Amlodipine Besylate [Norvasc -] 10 mg PO DAILY #30 tablet 12/10/16 Aspirin Coated [Ecotrin -] 81 mg PO DAILY #30 tab 12/10/16 Atorvastatin Ca [Lipitor] 40 mg PO HS #30 tablet 12/10/16 Lisinopril [Prinivil] 20 mg PO DAILY #30 tablet 12/10/16 Miscellaneous Drug Not In Syst [Outpatient Lab Test] 1 each ASDIR #1 misc 09/ 21/17 This patient is new to me today: No Emergency Visit: Yes ED Registration Date: 03/18/17 Care time: The patient presented to the Emergency Department on the above date and was hospitalized for further evaluation of their emergent condition. Critical Care patient: No - Discharge Referral Referred to [facility] No
[2017-03-23 07:35] LABS: EOS % 2.1 % (0-4.5); HEMATOCRIT 36.8 % (32.4-45.2); HEMOGLOBIN 11.7 GM/dL (10.7-15.3); LYMPH % 19.3 % (8-40); MCH 25.8 pg (25.7-33.7); MCHC 31.9 g/dl (32.0-36.0); MEAN CELL VOLUME 80.9 fl (80-96); MEAN PLT VOLUME 9.8 fl (7.5-11.1); MONO % 12.5 % (3.8-10.2); NEUT % 65.1 % (42.8-82.8); PLATELET COUNT 283 K/MM3 (134-434); RBC 4.55 M/mm3 (3.60-5.2); RDW 15.1 % (11.6-15.6); WHITE BLOOD COUNT 5.4 K/mm3 (4.0-10.0)
[2017-03-23 08:15] LABS: ANION GAP 7 (8-16); BILIRUBIN,TOTAL 0.5 mg/dL (0.2-1.0); BLOOD UREA NITROGEN 23 mg/dL (7-18); CALCIUM 9.4 mg/dL (8.5-10.1); CHLORIDE 102 mmol/L (98-107); CO2 31 mmol/L (21-32); GLUCOSE,RANDOM 83 mg/dL (74-106); MAGNESIUM 2.2 mg/dL (1.8-2.4); POTASSIUM 4.6 mmol/L (3.5-5.1); SGOT/AST 32 U/L (15-37); SGPT/ALT 39 U/L (12-78); SODIUM 140 mmol/L (136-145); TOT PROT 6.1 g/dl (6.4-8.2)
[2017-03-23 08:16] LABS: ALK PHOS 52 U/L (45-117)
[2017-03-23] MEDS: CLOPIDOGREL BISULFATE 75 MG TABLET (FP) PO SCH (09:58)
[2017-03-23] MEDS: amLODIPine BESYLATE 10 MG TABLET (FP) PO SCH (09:58)
[2017-03-23] MEDS: ASPIRIN COATED 81 MG TABLET.EC PO SCH (09:58)
[2017-03-23] MEDS: LISINOPRIL 20 MG TABLET (FP) PO SCH (09:58)
--- NOTE | 2017-03-23 10:07 | PN ---
Progress Note, Physician History of Present Illness: no new events stable - Current Medication List Current Medications: Active Medications Amlodipine Besylate (Norvasc -) 10 mg PO DAILY [facility] Last Admin: 03/23/17 09:58 Dose: 10 mg Aspirin (Ecotrin -) 81 mg PO DAILY [facility] Last Admin: 03/23/17 09:58 Dose: 81 mg Atorvastatin Calcium (Lipitor -) 10 mg PO HS [facility] Last Admin: 03/22/17 21:22 Dose: 10 mg Clopidogrel Bisulfate (Plavix -) 75 mg PO DAILY [facility] Last Admin: 03/23/17 09:58 Dose: 75 mg Heparin Sodium (Porcine) (Heparin -) 5,000 unit SQ TID [facility] Last Admin: 03/23/17 05:48 Dose: 5,000 unit Lisinopril (Prinivil) 20 mg PO DAILY [facility] Last Admin: 03/23/17 09:58 Dose: 20 mg - Objective Vital Signs: Vital Signs Temperature 98.2 F 03/23/17 05:00 Pulse Rate 72 03/23/17 05:00 Respiratory Rate 16 03/23/17 05:00 Blood Pressure 139/75 03/23/17 05:00 O2 Sat by Pulse Oximetry (%) 97 03/22/17 21:00 Constitutional: Yes: No Distress, Calm Cardiovascular: Yes: Regular Rate and Rhythm Respiratory: Yes: Regular, CTA Bilaterally Gastrointestinal: Yes: Normal Bowel Sounds, Soft Musculoskeletal: Yes: WNL Extremities: Yes: WNL Neurological: Yes: Alert Psychiatric: Yes: Alert Labs: CBC, BMP 03/23/17 06:45 03/23/17 06:45 INR, PTT INR 1.04 (0.82-1.09) 03/18/17 09:16 Assessment/Plan Problem List - Problems (1) Anemia Code(s): D64.9 - ANEMIA, UNSPECIFIED (2) Altered mental status Code(s): R41.82 - ALTERED MENTAL STATUS, UNSPECIFIED Qualifiers: Altered mental status type: unspecified Qualified Code(s): R41.82 - Altered mental status, unspecified (3) Hypothermia Code(s): T68.XXXA - HYPOTHERMIA, INITIAL ENCOUNTER Qualifiers: Encounter type: initial encounter Qualified Code(s): T68.XXXA - Hypothermia , initial encounter (4) Rhabdomyolysis Code(s): M62.82 - RHABDOMYOLYSIS Qualifiers: Rhabdomyolysis type: non-traumatic Qualified Code(s): M62.82 - Rhabdomyolysis (5) Confusion Code(s): R41.0 - DISORIENTATION, UNSPECIFIED (6) Hypertensive emergency Code(s): I16.1 - HYPERTENSIVE EMERGENCY (7) Pneumonia Code(s): J18.9 - PNEUMONIA, UNSPECIFIED ORGANISM plan stable off of abx continue to monitor rest as per primary patient doing well
--- NOTE | 2017-03-23 13:34 | PN ---
Progress Note (short form) - Note Progress Note: CC: found down/cva s: no cp sob palps dizzy o: Current Medications Amlodipine Besylate (Norvasc -) 10 mg PO DAILY [facility] Last Admin: 03/23/17 09:58 Dose: 10 mg Aspirin (Ecotrin -) 81 mg PO DAILY [facility] Last Admin: 03/23/17 09:58 Dose: 81 mg Atorvastatin Calcium (Lipitor -) 10 mg PO HS [facility] Last Admin: 03/22/17 21:22 Dose: 10 mg Clopidogrel Bisulfate (Plavix -) 75 mg PO DAILY [facility] Last Admin: 03/23/17 09:58 Dose: 75 mg Heparin Sodium (Porcine) (Heparin -) 5,000 unit SQ TID [facility] Last Admin: 03/23/17 05:48 Dose: 5,000 unit Lisinopril (Prinivil) 20 mg PO DAILY [facility] Last Admin: 03/23/17 09:58 Dose: 20 mg Vital Signs - 24 hr 03/22/17 03/22/17 03/22/17 17:00 17:53 21:00 Temperature 98.3 F 98.1 F Pulse Rate 102 H 85 Respiratory 18 18 16 Rate Blood Pressure 179/95 137/72 O2 Sat by Pulse 97 Oximetry (%) 03/22/17 03/23/17 03/23/17 21:28 05:00 09:00 Temperature 98.3 F 98.2 F 98.4 F Pulse Rate 78 72 79 Respiratory 16 16 18 Rate Blood Pressure 130/80 139/75 130/66 O2 Sat by Pulse Oximetry (%) 03/23/17 10:00 Temperature Pulse Rate Respiratory 16 Rate Blood Pressure O2 Sat by Pulse 98 Oximetry (%) Intake & Output 03/21/17 03/22/17 03/23/17 03/24/17 07:59 07:59 07:59 07:59 Intake Total 1625 400 300 380 Balance 1625 400 300 380 NAD, alert not oriented JVD flat, neck supple rrr nl s1, s2 2/6 murmur at lsb. ctab, nl effort + bs soft nt nd ext without e/c/c no jaundice, diaphoresis no carotid bruits + dp/pt CBC, BMP 03/23/17 06:45 03/23/17 06:45 ekg: nsr, lad. non-specific diffuse t wave abnormalities slightly more prominent than on priors. prior tele: SR, artifact brain mri: non-hemorrhagic small acute right thalamic infarct. chronic right pontine infarct and punctate basal ganglia infarcts. Microvascular changes. Numerous microbleeds noted. patent intracranial vessels. head ct: diffuse cerebral atrophy. chronic small vessel ischemia carotid u/s: no sig stenosis echo : 1+ lvh. nl sys fn. nl rv size/fn. mod lae. 1+ mr. mod tr. rvsp 40-50 echo 11/2016: nl lv/rv size/fn. mod nia. mod MR (eccentric). mod tr a/p: 77 y/o with h/o htn (c/b htn urgency admit 11/2016), chronic lacunar infarcts, HL, possible dementia presents to ER after being found down outside for unknown amount of time/hypothermic on presentation now found to have cva. CVA/syncope/hypothermia - patient found down outside, possible syncope. utox negative. - no acs. ekg without acute ischemic changes. intermediate troponin elevation 2/2 rhabo. echo with nl systolic function. - head ct no acute pathology, carotid u/s unremarkable. But brain MRI shows acute right thalamic infarct. Neuro following, plavix added to low dose asa. - tele benign, tele d/c. htn - improved on current meds hld - rhabdo improving. statin initiated. monitor ck. Will uptitrate atorva dose to 20. rhabdo - s/p IVF
--- NOTE | 2017-03-23 13:58 | PN ---
Progress Note (short form) - Note Progress Note: Resting in NAD. No significant change in overall condition. No acute events overnight. Intake & Output 03/20/17 03/21/17 03/22/17 03/23/17 23:59 23:59 23:59 23:59 Intake Total 1845 1200 680 Balance 1845 1200 680 Last Vital Signs Temp Pulse Resp BP Pulse Ox 98.4 F 79 16 130/66 98 03/23/17 09:00 03/23/17 09:00 03/23/17 10:00 03/23/17 09:00 03/23/17 10:00 Active Medications Generic Name Dose Route Start Last Admin Trade Name Freq PRN Reason Stop Dose Admin Amlodipine Besylate 10 mg 03/22/17 10:00 03/23/17 09:58 Norvasc - PO 10 mg DAILY [facility] Administration Aspirin 81 mg 03/19/17 10:45 03/23/17 09:58 Ecotrin - PO 81 mg DAILY [facility] Administration Atorvastatin Calcium 10 mg 03/19/17 22:00 03/22/17 21:22 Lipitor - PO 10 mg HS [facility] Administration Clopidogrel Bisulfate 75 mg 03/21/17 10:30 03/23/17 09:58 Plavix - PO 75 mg DAILY [facility] Administration Heparin Sodium (Porcine) 5,000 unit 03/19/17 14:00 03/23/17 13:55 Heparin - SQ 5,000 unit TID [facility] Administration Lisinopril 20 mg 03/22/17 10:00 03/23/17 09:58 Prinivil PO 20 mg DAILY [facility] Administration Constitutional: Yes: NAD, Thin, confusion Eyes: Yes: EOM Intact HENT: Yes: Normocephalic Neck: Yes: Trachea Midline Cardiovascular: Yes: Regular Rate and Rhythm, S1, S2 Respiratory: Yes: few scattered rhonchi Gastrointestinal: Yes: Normal Bowel Sounds Edema: No Neurological: Yes: Confusion Labs: Laboratory Results - last 24 hr 03/23/17 03/23/17 06:45 06:45 WBC 5.4 RBC 4.55 Hgb 11.7 Hct 36.8 MCV 80.9 MCH 25.8 MCHC 31.9 L RDW 15.1 Plt Count 283 MPV 9.8 Neutrophils % 65.1 Lymphocytes % 19.3 D Monocytes % 12.5 H Eosinophils % 2.1 D Basophils % 1.0 Sodium 140 Potassium 4.6 Chloride 102 Carbon Dioxide 31 Anion Gap 7 L BUN 23 H D Creatinine 1.0 D Creat Clearance w eGFR 53.62 Random Glucose 83 Calcium 9.4 Magnesium 2.2 Total Bilirubin 0.5 D AST 32 ALT 39 Alkaline Phosphatase 52 Creatine Kinase 140 Total Protein 6.1 L Albumin 3.0 L Problem List - Problems (1) Anemia Code(s): D64.9 - ANEMIA, UNSPECIFIED (2) Altered mental status Code(s): R41.82 - ALTERED MENTAL STATUS, UNSPECIFIED Qualifiers: Altered mental status type: unspecified Qualified Code(s): R41.82 - Altered mental status, unspecified (3) Hypothermia Code(s): T68.XXXA - HYPOTHERMIA, INITIAL ENCOUNTER Qualifiers: Encounter type: initial encounter Qualified Code(s): T68.XXXA - Hypothermia , initial encounter (4) Rhabdomyolysis Code(s): M62.82 - RHABDOMYOLYSIS Qualifiers: Rhabdomyolysis type: non-traumatic Qualified Code(s): M62.82 - Rhabdomyolysis (5) Confusion Code(s): R41.0 - DISORIENTATION, UNSPECIFIED (6) Hypertensive emergency Code(s): I16.1 - HYPERTENSIVE EMERGENCY (7) Pneumonia Code(s): J18.9 - PNEUMONIA, UNSPECIFIED ORGANISM Assessment/Plan Currently off ABX O2 as needed Fall precautions No Pulmonary contraindication for D/C planning Dr Fontaine
[2017-03-23] MEDS: ATORVASTATIN CA 10 MG TABLET (FP) PO SCH (22:15)
[2017-03-24] MEDS: HEPARIN NA (PORCINE) 5,000 UNITS/ML 1ML VIAL SQ SCH ×3 (05:56→21:19)
[2017-03-24] MEDS: ASPIRIN COATED 81 MG TABLET.EC PO SCH (09:04)
[2017-03-24] MEDS: LISINOPRIL 20 MG TABLET (FP) PO SCH (09:04)
[2017-03-24] MEDS: CLOPIDOGREL BISULFATE 75 MG TABLET (FP) PO SCH (09:04)
[2017-03-24] MEDS: amLODIPine BESYLATE 10 MG TABLET (FP) PO SCH (09:05)
--- NOTE | 2017-03-24 11:34 | PN ---
Progress Note (short form) - Note Progress Note: s: no cp sob palps dizzy o: Vital Signs Period Temp Pulse Resp BP Sys/Luz Pulse Ox Last 24 Hr 98.1 F-99.2 F 69-82 16-18 110-154/58-79 98 NAD, alert not oriented JVD flat, neck supple rrr nl s1, s2 2/6 murmur at lsb. ctab, nl effort + bs soft nt nd ext without e/c/c no jaundice, diaphoresis Current Medications Generic Name Dose Route Start Last Admin Trade Name Jemal PRN Reason Stop Dose Admin Amlodipine Besylate 10 mg 03/22/17 10:00 03/24/17 09:05 Norvasc - PO 10 mg DAILY [facility] Administration Aspirin 81 mg 03/19/17 10:45 03/24/17 09:04 Ecotrin - PO 81 mg DAILY [facility] Administration Atorvastatin Calcium 20 mg 03/24/17 22:00 Lipitor - PO HS [facility] Clopidogrel Bisulfate 75 mg 03/21/17 10:30 03/24/17 09:04 Plavix - PO 75 mg DAILY [facility] Administration Heparin Sodium (Porcine) 5,000 unit 03/19/17 14:00 03/24/17 05:56 Heparin - SQ 5,000 unit TID [facility] Administration Lisinopril 20 mg 03/22/17 10:00 03/24/17 09:04 Prinivil PO 20 mg DAILY [facility] Administration ekg: nsr, lad. non-specific diffuse t wave abnormalities slightly more prominent than on priors. brain mri: non-hemorrhagic small acute right thalamic infarct. chronic right pontine infarct and punctate basal ganglia infarcts. Microvascular changes. Numerous microbleeds noted. patent intracranial vessels. head ct: diffuse cerebral atrophy. chronic small vessel ischemia carotid u/s: no sig stenosis echo : 1+ lvh. nl sys fn. nl rv size/fn. mod lae. 1+ mr. mod tr. rvsp 40-50 echo 11/2016: nl lv/rv size/fn. mod nai. mod MR (eccentric). mod tr a/p: 77 y/o with h/o htn (c/b htn urgency admit 11/2016), chronic lacunar infarcts, HL, possible dementia presents to ER after being found down outside for unknown amount of time/hypothermic on presentation now found to have cva. CVA/syncope/hypothermia - patient found down outside, possible syncope. utox negative. - no acs. ekg without acute ischemic changes. intermediate troponin elevation 2/2 rhabo. echo with nl systolic function. - head ct no acute pathology, carotid u/s unremarkable. But brain MRI shows acute right thalamic infarct. Neuro following, plavix added to low dose asa. - tele benign, tele d/c'd. htn - improved on current meds hld - rhabdo improving. statin initiated. monitor ck. rhabdo - s/p IVF
--- NOTE | 2017-03-24 18:22 | PN ---
Progress Note, Physician History of Present Illness: improving confusion better calm - Current Medication List Current Medications: Active Medications Amlodipine Besylate (Norvasc -) 10 mg PO DAILY [facility] Last Admin: 03/24/17 09:05 Dose: 10 mg Aspirin (Ecotrin -) 81 mg PO DAILY [facility] Last Admin: 03/24/17 09:04 Dose: 81 mg Atorvastatin Calcium (Lipitor -) 20 mg PO [facility] Clopidogrel Bisulfate (Plavix -) 75 mg PO DAILY [facility] Last Admin: 03/24/17 09:04 Dose: 75 mg Heparin Sodium (Porcine) (Heparin -) 5,000 unit SQ TID [facility] Last Admin: 03/24/17 14:03 Dose: 5,000 unit Lisinopril (Prinivil) 20 mg PO DAILY [facility] Last Admin: 03/24/17 09:04 Dose: 20 mg - Objective Vital Signs: Vital Signs Temperature 97.9 F 03/24/17 15:35 Pulse Rate 76 03/24/17 15:35 Respiratory Rate 18 03/24/17 15:35 Blood Pressure 118/60 03/24/17 15:35 O2 Sat by Pulse Oximetry (%) 98 03/23/17 21:00 Constitutional: Yes: No Distress, Calm Neck: Yes: Supple, Trachea Midline Cardiovascular: Yes: Regular Rate and Rhythm Respiratory: Yes: Regular, CTA Bilaterally Gastrointestinal: Yes: Normal Bowel Sounds, Soft Musculoskeletal: Yes: WNL Extremities: Yes: WNL Neurological: Yes: Alert Psychiatric: Yes: Alert Labs: CBC, BMP 03/23/17 06:45 03/23/17 06:45 INR, PTT INR 1.04 (0.82-1.09) 03/18/17 09:16 Assessment/Plan Problem List - Problems (1) Anemia Code(s): D64.9 - ANEMIA, UNSPECIFIED (2) Altered mental status Code(s): R41.82 - ALTERED MENTAL STATUS, UNSPECIFIED Qualifiers: Altered mental status type: unspecified Qualified Code(s): R41.82 - Altered mental status, unspecified (3) Hypothermia Code(s): T68.XXXA - HYPOTHERMIA, INITIAL ENCOUNTER Qualifiers: Encounter type: initial encounter Qualified Code(s): T68.XXXA - Hypothermia , initial encounter (4) Rhabdomyolysis Code(s): M62.82 - RHABDOMYOLYSIS Qualifiers: Rhabdomyolysis type: non-traumatic Qualified Code(s): M62.82 - Rhabdomyolysis (5) Confusion Code(s): R41.0 - DISORIENTATION, UNSPECIFIED (6) Hypertensive emergency Code(s): I16.1 - HYPERTENSIVE EMERGENCY (7) Pneumonia Code(s): J18.9 - PNEUMONIA, UNSPECIFIED ORGANISM plan continue current mgmt neurology on case close watch rest as per primary team
[2017-03-24] MEDS: ATORVASTATIN CA 20 MG TABLET (FP) PO SCH (21:18)
[2017-03-25] MEDS: HEPARIN NA (PORCINE) 5,000 UNITS/ML 1ML VIAL SQ SCH ×3 (05:09→22:19)
--- NOTE | 2017-03-25 09:34 | PN ---
Physical Exam: SUBJECTIVE: Patient seen and examined OBJECTIVE: Awaiting SNF placement, medically cleared for discharge. Vital Signs Period Temp Pulse Resp BP Sys/Luz Pulse Ox Last 24 Hr 97.9 F-98.4 F 62-76 18-18 110-142/54-71 95 GENERAL: awake, more alert, answers appropriate, poor recall, oriented to name HEAD: Normal with no signs of trauma. EYES: PERRL, extraocular movements intact, sclera anicteric, conjunctiva clear. No ptosis. ENT: Ears normal, nares patent, oropharynx clear without exudates, moist mucous membranes. NECK: Trachea midline, full range of motion, supple. LUNGS: Breath sounds equal, no accessory muscle use. 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 EXTREMITIES: no edema./+ left sided weakness 3/5 left arm, right arm 5/5 NEUROLOGICAL: Speech slightly slurred but improving since admission, gait not observed. PSYCH: lethargic, flat affect SKIN: Warm, dry, normal turgor, no rashes or lesions noted Active Medications Generic Name Dose Route Start Last Admin Trade Name Freq PRN Reason Stop Dose Admin Amlodipine Besylate 10 mg 03/22/17 10:00 03/24/17 09:05 Norvasc - PO 10 mg DAILY EARL Administration Aspirin 81 mg 03/19/17 10:45 03/24/17 09:04 Ecotrin - PO 81 mg DAILY EARL Administration Atorvastatin Calcium 20 mg 03/24/17 22:00 03/24/17 21:18 Lipitor - PO 20 mg HS EARL Administration Clopidogrel Bisulfate 75 mg 03/21/17 10:30 03/24/17 09:04 Plavix - PO 75 mg DAILY EARL Administration Heparin Sodium (Porcine) 5,000 unit 03/19/17 14:00 03/25/17 05:09 Heparin - SQ 5,000 unit TID EARL Administration Lisinopril 20 mg 03/22/17 10:00 03/24/17 09:04 Prinivil PO 20 mg DAILY EARL Administration ASSESSMENT/PLAN: Patient has been discharged, awaiting placement. Visit type - Emergency Visit Emergency Visit: Yes ED Registration Date: 03/18/17 Care time: The patient presented to the Emergency Department on the above date and was hospitalized for further evaluation of their emergent condition. - New Patient This patient is new to me today: No - Critical Care Critical Care patient: No - Discharge Referral Referred to [facility] Med P.C.: No
[2017-03-25] MEDS: amLODIPine BESYLATE 10 MG TABLET (FP) PO SCH (09:43)
[2017-03-25] MEDS: ASPIRIN COATED 81 MG TABLET.EC PO SCH (09:43)
[2017-03-25] MEDS: LISINOPRIL 20 MG TABLET (FP) PO SCH (09:43)
[2017-03-25] MEDS: CLOPIDOGREL BISULFATE 75 MG TABLET (FP) PO SCH (09:43)
--- NOTE | 2017-03-25 11:25 | PN ---
Progress Note (short form) - Note Progress Note: s: no cp sob palps dizzy o: Vital Signs Period Temp Pulse Resp BP Sys/Luz Pulse Ox Last 24 Hr 97.9 F-98.4 F 62-76 18-18 118-142/54-78 95-97 NAD, alert not oriented JVD flat, neck supple rrr nl s1, s2 2/6 murmur at lsb. ctab, nl effort + bs soft nt nd ext without e/c/c no jaundice, diaphoresis Current Medications Generic Name Dose Route Start Last Admin Trade Name Jemal PRN Reason Stop Dose Admin Amlodipine Besylate 10 mg 03/22/17 10:00 03/25/17 09:43 Norvasc - PO 10 mg DAILY EARL Administration Aspirin 81 mg 03/19/17 10:45 03/25/17 09:43 Ecotrin - PO 81 mg DAILY EARL Administration Atorvastatin Calcium 20 mg 03/24/17 22:00 03/24/17 21:18 Lipitor - PO 20 mg HS EARL Administration Clopidogrel Bisulfate 75 mg 03/21/17 10:30 03/25/17 09:43 Plavix - PO 75 mg DAILY EARL Administration Heparin Sodium (Porcine) 5,000 unit 03/19/17 14:00 03/25/17 05:09 Heparin - SQ 5,000 unit TID EARL Administration Lisinopril 20 mg 03/22/17 10:00 03/25/17 09:43 Prinivil PO 20 mg DAILY EARL Administration CBC, BMP 03/23/17 06:45 03/23/17 06:45 ekg: nsr, lad. non-specific diffuse t wave abnormalities slightly more prominent than on priors. brain mri: non-hemorrhagic small acute right thalamic infarct. chronic right pontine infarct and punctate basal ganglia infarcts. Microvascular changes. Numerous microbleeds noted. patent intracranial vessels. head ct: diffuse cerebral atrophy. chronic small vessel ischemia carotid u/s: no sig stenosis echo : 1+ lvh. nl sys fn. nl rv size/fn. mod lae. 1+ mr. mod tr. rvsp 40-50 echo 11/2016: nl lv/rv size/fn. mod nia. mod MR (eccentric). mod tr a/p: 77 y/o with h/o htn (c/b htn urgency admit 11/2016), chronic lacunar infarcts, HL, possible dementia presents to ER after being found down outside for unknown amount of time/hypothermic on presentation now found to have cva. CVA/syncope/hypothermia - patient found down outside, possible syncope. utox negative. - no acs. ekg without acute ischemic changes. intermediate troponin elevation 2/2 rhabo. echo with nl systolic function. - head ct no acute pathology, carotid u/s unremarkable. But brain MRI shows acute right thalamic infarct. Neuro following, plavix added to low dose asa. - tele benign, tele d/c'd. htn - improved on current meds hld - rhabdo improving. statin initiated. monitor ck. rhabdo - s/p IVF
[2017-03-25] MEDS: ATORVASTATIN CA 20 MG TABLET (FP) PO SCH (22:19)
[2017-03-26] MEDS: HEPARIN NA (PORCINE) 5,000 UNITS/ML 1ML VIAL SQ SCH (05:19)
[2017-03-26] MEDS: ASPIRIN COATED 81 MG TABLET.EC PO SCH (09:38)
[2017-03-26] MEDS: CLOPIDOGREL BISULFATE 75 MG TABLET (FP) PO SCH (09:39)
[2017-03-26] MEDS: amLODIPine BESYLATE 10 MG TABLET (FP) PO SCH (09:39)
[2017-03-26] MEDS: LISINOPRIL 20 MG TABLET (FP) PO SCH (09:39)
--- NOTE | 2017-03-26 11:47 | PN ---
Progress Note (short form) - Note Progress Note: s: no cp sob palps dizzy o: Vital Signs Period Temp Pulse Resp BP Sys/Luz Pulse Ox Last 24 Hr 98 F-98.2 F 56-76 18-21 108-146/40-76 94-98 NAD, alert not oriented JVD flat, neck supple rrr nl s1, s2 2/6 murmur at lsb. ctab, nl effort + bs soft nt nd ext without e/c/c no jaundice, diaphoresis Current Medications Generic Name Dose Route Start Last Admin Trade Name Jemal PRN Reason Stop Dose Admin Amlodipine Besylate 10 mg 03/22/17 10:00 03/26/17 09:39 Norvasc - PO 10 mg DAILY EARL Administration Aspirin 81 mg 03/19/17 10:45 03/26/17 09:38 Ecotrin - PO 81 mg DAILY EARL Administration Atorvastatin Calcium 20 mg 03/24/17 22:00 03/25/17 22:19 Lipitor - PO 20 mg HS EARL Administration Clopidogrel Bisulfate 75 mg 03/21/17 10:30 03/26/17 09:39 Plavix - PO 75 mg DAILY EARL Administration Heparin Sodium (Porcine) 5,000 unit 03/19/17 14:00 03/26/17 05:19 Heparin - SQ 5,000 unit TID EARL Administration Lisinopril 20 mg 03/22/17 10:00 03/26/17 09:39 Prinivil PO 20 mg DAILY EARL Administration CBC, BMP 03/23/17 06:45 03/23/17 06:45 ekg: nsr, lad. non-specific diffuse t wave abnormalities slightly more prominent than on priors. brain mri: non-hemorrhagic small acute right thalamic infarct. chronic right pontine infarct and punctate basal ganglia infarcts. Microvascular changes. Numerous microbleeds noted. patent intracranial vessels. head ct: diffuse cerebral atrophy. chronic small vessel ischemia carotid u/s: no sig stenosis echo : 1+ lvh. nl sys fn. nl rv size/fn. mod lae. 1+ mr. mod tr. rvsp 40-50 echo 11/2016: nl lv/rv size/fn. mod nia. mod MR (eccentric). mod tr a/p: 77 y/o with h/o htn (c/b htn urgency admit 11/2016), chronic lacunar infarcts, HL, possible dementia presents to ER after being found down outside for unknown amount of time/hypothermic on presentation now found to have cva. CVA/syncope/hypothermia - patient found down outside, possible syncope. utox negative. - no acs. ekg without acute ischemic changes. intermediate troponin elevation 2/2 rhabo. echo with nl systolic function. - head ct no acute pathology, carotid u/s unremarkable. But brain MRI shows acute right thalamic infarct. Neuro following, plavix added to low dose asa. - tele benign, tele d/c'd. htn - improved on current meds hld - rhabdo improving. statin initiated. monitor ck. rhabdo - s/p IVF cardiac gilbert stable
--- NOTE | 2017-03-26 12:21 | PN ---
Progress Note, Physician History of Present Illness: stable no new issues - Current Medication List Current Medications: Active Medications Amlodipine Besylate (Norvasc -) 10 mg PO DAILY [facility] Last Admin: 03/26/17 09:39 Dose: 10 mg Aspirin (Ecotrin -) 81 mg PO DAILY [facility] Last Admin: 03/26/17 09:38 Dose: 81 mg Atorvastatin Calcium (Lipitor -) 20 mg PO HS [facility] Last Admin: 03/25/17 22:19 Dose: 20 mg Clopidogrel Bisulfate (Plavix -) 75 mg PO DAILY [facility] Last Admin: 03/26/17 09:39 Dose: 75 mg Heparin Sodium (Porcine) (Heparin -) 5,000 unit SQ TID [facility] Last Admin: 03/26/17 05:19 Dose: 5,000 unit Lisinopril (Prinivil) 20 mg PO DAILY [facility] Last Admin: 03/26/17 09:39 Dose: 20 mg - Objective Vital Signs: Vital Signs Temperature 98 F 03/26/17 09:00 Pulse Rate 73 03/26/17 09:00 Respiratory Rate 20 03/26/17 09:00 Blood Pressure 108/40 03/26/17 09:00 O2 Sat by Pulse Oximetry (%) 94 L 03/26/17 09:00 Constitutional: Yes: No Distress, Calm Cardiovascular: Yes: Regular Rate and Rhythm Respiratory: Yes: Regular, CTA Bilaterally Gastrointestinal: Yes: Normal Bowel Sounds, Soft Musculoskeletal: Yes: WNL Extremities: Yes: WNL Neurological: Yes: Alert, Oriented Psychiatric: Yes: Alert, Oriented Labs: CBC, BMP 03/23/17 06:45 03/23/17 06:45 INR, PTT INR 1.04 (0.82-1.09) 03/18/17 09:16 Assessment/Plan Problem List - Problems (1) Anemia Code(s): D64.9 - ANEMIA, UNSPECIFIED (2) Altered mental status Code(s): R41.82 - ALTERED MENTAL STATUS, UNSPECIFIED Qualifiers: Altered mental status type: unspecified Qualified Code(s): R41.82 - Altered mental status, unspecified (3) Hypothermia Code(s): T68.XXXA - HYPOTHERMIA, INITIAL ENCOUNTER Qualifiers: Encounter type: initial encounter Qualified Code(s): T68.XXXA - Hypothermia , initial encounter (4) Rhabdomyolysis Code(s): M62.82 - RHABDOMYOLYSIS Qualifiers: Rhabdomyolysis type: non-traumatic Qualified Code(s): M62.82 - Rhabdomyolysis (5) Confusion Code(s): R41.0 - DISORIENTATION, UNSPECIFIED (6) Hypertensive emergency Code(s): I16.1 - HYPERTENSIVE EMERGENCY (7) Pneumonia Code(s): J18.9 - PNEUMONIA, UNSPECIFIED ORGANISM plan continue current mgmt neurology on case close watch rest as per primary team patient stable
--- NOTE | 2017-03-26 15:44 | PN ---
Physical Exam: SUBJECTIVE: Patient seen and examined at the bedside. she is aware that she will be going to get rehab. OBJECTIVE: Cleared for discharged Vital Signs Period Temp Pulse Resp BP Sys/Luz Pulse Ox Last 24 Hr 97.9 F-98.0 F 56-75 18-20 108-146/40-76 94-98 GENERAL: awake, more alert, answers appropriate, poor recall, anxious and cries at times HEAD: Normal with no signs of trauma. EYES: PERRL, extraocular movements intact, sclera anicteric, conjunctiva clear. No ptosis. ENT: Ears normal, nares patent, oropharynx clear without exudates, moist mucous membranes. NECK: Trachea midline, full range of motion, supple. LUNGS: Breath sounds equal, no accessory muscle use. HEART:SR 60s on panel monitor ABDOMEN: Soft, nontender, nondistended, normoactive bowel sounds, no guarding, no rebound, no hepatosplenomegaly, no masses. EXTREMITIES: no edema./+ left sided weakness 3/5 left arm, right arm 5/5 NEUROLOGICAL: Speech slightly slurred but improving since admission, gait not observed. PSYCH: flat affect SKIN: Warm, dry, normal turgor, no rashes or lesions noted Active Medications Generic Name Dose Route Start Last Admin Trade Name Freq PRN Reason Stop Dose Admin Amlodipine Besylate 10 mg 03/22/17 10:00 03/26/17 09:39 Norvasc - PO 10 mg DAILY EARL Administration Aspirin 81 mg 03/19/17 10:45 03/26/17 09:38 Ecotrin - PO 81 mg DAILY EARL Administration Atorvastatin Calcium 20 mg 03/24/17 22:00 03/25/17 22:19 Lipitor - PO 20 mg HS EARL Administration Clopidogrel Bisulfate 75 mg 03/21/17 10:30 03/26/17 09:39 Plavix - PO 75 mg DAILY EARL Administration Lisinopril 20 mg 03/22/17 10:00 03/26/17 09:39 Prinivil PO 20 mg DAILY EARL Administration ASSESSMENT/PLAN: Patient is a 77 year old female with a past medical history of dementia, hypertension, hyperlipidemia and UTI. (As per patient's sister Katarzyna, patient was non compliant with her home medications) Patient was brought into the ER via ambulance after being found on the doorsteps outside for unknown amount of time. EMS noted that she responded to painful stimuli but otherwise was not responsive. They were unable to get a pulse oxygenation, blood pressure, or temperature in the field. In the ED the patient remained minimally responsive and was unable to provide any history and was found to have a rectal temperature of 86.3f, and initially hypertensive in the 160s. On admission, warm saline was drip was initiated, nadiya hugger blanket placed with rectal probe monitor. On admission her lactic acid was 3.6, temp 86.3 rectal, her CK was 1619 and bun/ creat of 45/1.5. Her chest xray shows a developing left lung infiltrate. Imaging: Brain MRI results: - small acute right thalamic infarct - small chronic right pontine infarct - punctate chronic bilateral basal ganglia infarcts - advanced periventricular and subcortical chronic microvascular ischemic changes - multiple supratentorial and inratentorial chronic microbleeds Echo 03/16/2017: mild concentric left ventricular hypertrophy, LV fx normal, RV fx normal, LA mod dilated, mild MR, mod. TR, right ventricular systolic pressure elevated, moderate aortic sclerosis, no pericardial effusion. Carotid doppler 03/17/16: mild arth. disease, no sign. hemodynamic stenosis Neuro: Stroke, acute Syncope 2/2 Acute right thalmamic infarct as per MRI Brain MRi shows small acute right thamalic infarct with chronic infarcts and chronic microbleeds MRI findings discussed with Dr. Olivera, Neurologist Patient on ASA 81mg, Lipitor 10mg @ hs and Plavix added as per neuro recommendations with ASA therapy (Plavix for a 3 month period, then ASA alone) Patient has left sided weakness 3/5 left arm, right arm 5/5, will ambulate with PT to assess lower extremity function status Mental status improving, but has poor recall, has hx of dementia/forgetfulness as per family Swallow eval shows no difficulty swallowing, on regular diet Monitor neuro status Patient discharged to rehab, awaiting placement. Disposition. Patient medically cleared for discharge to rehab. full code. Visit type - Emergency Visit Emergency Visit: Yes ED Registration Date: 03/18/17 Care time: The patient presented to the Emergency Department on the above date and was hospitalized for further evaluation of their emergent condition. - New Patient This patient is new to me today: No - Critical Care Critical Care patient: No - Discharge Referral Referred to [facility] Med P.C.: No
[2017-03-26] MEDS: ATORVASTATIN CA 20 MG TABLET (FP) PO SCH (21:41)
--- NOTE | 2017-03-27 08:55 | DS ---
Physical Exam: SUBJECTIVE: Patient seen and examined at bedside. OBJECTIVE: Vital Signs Period Temp Pulse Resp BP Sys/Luz Pulse Ox Last 24 Hr 97.9 F-98.1 F 59-75 20-20 108-147/40-72 94-94 PHYSICAL EXAM GENERAL: The patient is awake, alert, and fully oriented, in no acute distress. HEAD: Normal with no signs of trauma. EYES: PERRL, extraocular movements intact, sclera anicteric, conjunctiva clear. No ptosis. LUNGS: Breath sounds equal, clear to auscultation bilaterally, no wheezes, no crackles, no accessory muscle use. HEART: Regular rate and rhythm, S1, S2 ABDOMEN: Soft, nontender, nondistended, normoactive bowel sounds, no guarding, no rebound UPPER EXTREMITIES: 2+ pulses, warm, well-perfused, no edema; 5/5 motor and sensory LOWER EXTREMITIES: 2+ pulses, warm, well-perfused, no edema; 5/5 motor and sensory; SLR to 90 degress bilaterally NEUROLOGICAL: Cranial nerves II through XII grossly intact. Normal speech. PSYCH: Normal mood, normal affect. SKIN: Warm, dry, normal turgor LABS CBCD WBC 5.4 K/mm3 (4.0-10.0) 03/23/17 06:45 RBC 4.55 M/mm3 (3.60-5.2) 03/23/17 06:45 Hgb 11.7 GM/dL (10.7-15.3) 03/23/17 06:45 Hct 36.8 % (32.4-45.2) 03/23/17 06:45 MCV 80.9 fl (80-96) 03/23/17 06:45 MCHC 31.9 g/dl (32.0-36.0) L 03/23/17 06:45 RDW 15.1 % (11.6-15.6) 03/23/17 06:45 Plt Count 283 K/MM3 (134-434) 03/23/17 06:45 MPV 9.8 fl (7.5-11.1) 03/23/17 06:45 CMP Sodium 140 mmol/L (136-145) 03/23/17 06:45 Potassium 4.6 mmol/L (3.5-5.1) 03/23/17 06:45 Chloride 102 mmol/L (98-107) 03/23/17 06:45 Carbon Dioxide 31 mmol/L (21-32) 03/23/17 06:45 Anion Gap 7 (8-16) L 03/23/17 06:45 BUN 23 mg/dL (7-18) H D 03/23/17 06:45 Creatinine 1.0 mg/dL (0.55-1.02) D 03/23/17 06:45 Creat Clearance w eGFR 53.62 (>60) 03/23/17 06:45 Calcium 9.4 mg/dL (8.5-10.1) 03/23/17 06:45 Total Bilirubin 0.5 mg/dL (0.2-1.0) D 03/23/17 06:45 AST 32 U/L (15-37) 03/23/17 06:45 ALT 39 U/L (12-78) 03/23/17 06:45 Alkaline Phosphatase 52 U/L (45-117) 03/23/17 06:45 Total Protein 6.1 g/dl (6.4-8.2) L 03/23/17 06:45 Albumin 3.0 g/dl (3.4-5.0) L 03/23/17 06:45 HOSPITAL COURSE: Date of Admission:03/18/17 Date of Discharge: 03/27/17 77 year-old female with a PMH significant for HTN, HLD, dementia, and recurrent UTIs. Found down in the cold in front of her apartment, unresponsive. Found to have had acute CVA. Hypothermia --rectal temp in ED 86.3 F --warmed IV fluids, Micky hugger with excellent response, vital signs normalized and mentation returned to baseline Acute CVA --03/18 MRI brain: small acute right thalamic infarct; multiple chronic infarcts and microbleeds --no significant carotid artery disease --continue ASA, Plavix, Lipitor --per neuro, continue Plavix and ASA 81mg for 3 months Rhabdomyalisis, resolved --CPK 1383--675-->140 Elevated troponins --intermediate troponin elevation likely secondary to rhabdo --ECG not suggestive of acute ischemic event --no events on telemetry --very low suspicion for ACS Hypertension --Echo 03/16/2017: mild concentric LVH; LV normal, RV normal, LAE; mild MR, moderate TR, pHTN, moderate --BP improved on increased amlodipine, continue lisinopril FREDIS, resolved --Cr 1.5 on admission today 0.6 at time of discharge Lactic acidosis, resolved Left upper lobe infiltrate --has been followed by ID; was started on empiric antibiotics but then dc'd as patient was without fever, leukocytosis, or symptoms of pneumonia --continue to monitor off antibiotics Minutes to complete discharge: 35 Discharge Summary Reason For Visit: ACUTE KIDNEY INJURY, HYPOTHERMIA, RHABDOMYOLYSIS, Current Active Problems FREDIS (acute kidney injury) (Acute) Altered mental status (Acute) Anemia (Acute) Hypothermia (Acute) Pneumonia (Acute) Rhabdomyolysis (Acute) Condition: Critical - Instructions Diet, Activity, Other Instructions: A prescription has been sent to your pharmacy for Plavix which is a blood- thinning medication. You should take this medication for a total of 90 days. You will need to follow up with a primary care provider. You may choose to follow up with Dr. Patel at the [facility] within one week of your discharge. Her contact information is enclosed. Return to the emergency department for any new or worsening symptoms. Referrals: Damaso Patel MD [Staff Physician] - 1 Week Disposition: SENIOR CARE FACILITY - Home Medications Comprehensive Discharge Medication List: Ambulatory Orders Amlodipine Besylate [Norvasc -] 10 mg PO DAILY #30 tablet 12/10/16 Aspirin Coated [Ecotrin -] 81 mg PO DAILY #30 tab 12/10/16 Atorvastatin Ca [Lipitor] 40 mg PO HS #30 tablet 12/10/16 Lisinopril [Prinivil] 20 mg PO DAILY #30 tablet 12/10/16 Clopidogrel Bisulfate [Plavix -] 75 mg PO DAILY #30 tablet 03/24/17 - Discharge Referral Referred to [facility] Med P.C.: No
[2017-03-27] MEDS: amLODIPine BESYLATE 10 MG TABLET (FP) PO SCH (09:59)
[2017-03-27] MEDS: LISINOPRIL 20 MG TABLET (FP) PO SCH (09:59)
[2017-03-27] MEDS: CLOPIDOGREL BISULFATE 75 MG TABLET (FP) PO SCH (09:59)
[2017-03-27] MEDS: ASPIRIN COATED 81 MG TABLET.EC PO SCH (09:59)
--- NOTE | 2017-03-27 10:58 | PN ---
Progress Note (short form) - Note Progress Note: s: no cp sob palps dizzy o: Vital Signs Period Temp Pulse Resp BP Sys/Luz Pulse Ox Last 24 Hr 97.9 F-98.1 F 59-75 20-20 128-147/67-72 94 NAD, alert not oriented JVD flat, neck supple rrr nl s1, s2 2/6 murmur at lsb. ctab, nl effort + bs soft nt nd ext without e/c/c no jaundice, diaphoresis Current Medications Generic Name Dose Route Start Last Admin Trade Name Jemal PRN Reason Stop Dose Admin Amlodipine Besylate 10 mg 03/22/17 10:00 03/27/17 09:59 Norvasc - PO 10 mg DAILY EARL Administration Aspirin 81 mg 03/19/17 10:45 03/27/17 09:59 Ecotrin - PO 81 mg DAILY EARL Administration Atorvastatin Calcium 20 mg 03/24/17 22:00 03/26/17 21:41 Lipitor - PO 20 mg HS EARL Administration Clopidogrel Bisulfate 75 mg 03/21/17 10:30 03/27/17 09:59 Plavix - PO 75 mg DAILY EARL Administration Lisinopril 20 mg 03/22/17 10:00 03/27/17 09:59 Prinivil PO 20 mg DAILY EARL Administration CBC, BMP 03/23/17 06:45 03/23/17 06:45 ekg: nsr, lad. non-specific diffuse t wave abnormalities slightly more prominent than on priors. brain mri: non-hemorrhagic small acute right thalamic infarct. chronic right pontine infarct and punctate basal ganglia infarcts. Microvascular changes. Numerous microbleeds noted. patent intracranial vessels. head ct: diffuse cerebral atrophy. chronic small vessel ischemia carotid u/s: no sig stenosis echo : 1+ lvh. nl sys fn. nl rv size/fn. mod lae. 1+ mr. mod tr. rvsp 40-50 echo 11/2016: nl lv/rv size/fn. mod nia. mod MR (eccentric). mod tr a/p: 77 y/o with h/o htn (c/b htn urgency admit 11/2016), chronic lacunar infarcts, HL, possible dementia presents to ER after being found down outside for unknown amount of time/hypothermic on presentation now found to have cva. CVA/syncope/hypothermia - patient found down outside, possible syncope. utox negative. - no acs. ekg without acute ischemic changes. intermediate troponin elevation 2/2 rhabo. echo with nl systolic function. - head ct no acute pathology, carotid u/s unremarkable. But brain MRI shows acute right thalamic infarct. Neuro following, plavix added to low dose asa. - tele benign, tele d/c'd. htn - stable on current meds hld - rhabdo improving. statin initiated. monitor ck. rhabdo - s/p IVF cardiac gilbert stable
--- NOTE | 2017-03-27 17:12 | PN ---
Physical Exam: SUBJECTIVE: Patient seen and examined at bedside. OBJECTIVE: Vital Signs Period Temp Pulse Resp BP Sys/Luz Pulse Ox Last 24 Hr 97.9 F-98.2 F 59-71 20-22 106-147/56-72 94-98 GENERAL: The patient is awake, alert, and fully oriented, in no acute distress. HEAD: Normal with no signs of trauma. EYES: PERRL, extraocular movements intact, sclera anicteric, conjunctiva clear. No ptosis. LUNGS: Breath sounds equal, clear to auscultation bilaterally, no wheezes, no crackles, no accessory muscle use. HEART: Regular rate and rhythm, S1, S2 ABDOMEN: Soft, nontender, nondistended, normoactive bowel sounds, no guarding, no rebound UPPER EXTREMITIES: 2+ pulses, warm, well-perfused, no edema; 5/5 motor and sensory LOWER EXTREMITIES: 2+ pulses, warm, well-perfused, no edema; 5/5 motor and sensory; SLR to 90 degress bilaterally NEUROLOGICAL: Cranial nerves II through XII grossly intact. Normal speech. PSYCH: Normal mood, normal affect. SKIN: Warm, dry, normal turgor Active Medications Generic Name Dose Route Start Last Admin Trade Name Freq PRN Reason Stop Dose Admin Amlodipine Besylate 10 mg 03/22/17 10:00 03/27/17 09:59 Norvasc - PO 10 mg DAILY EARL Administration Aspirin 81 mg 03/19/17 10:45 03/27/17 09:59 Ecotrin - PO 81 mg DAILY EARL Administration Atorvastatin Calcium 20 mg 03/24/17 22:00 03/26/17 21:41 Lipitor - PO 20 mg HS EARL Administration Clopidogrel Bisulfate 75 mg 03/21/17 10:30 03/27/17 09:59 Plavix - PO 75 mg DAILY EARL Administration Lisinopril 20 mg 03/22/17 10:00 03/27/17 09:59 Prinivil PO 20 mg DAILY EARL Administration ASSESSMENT/PLAN: 77 year-old female with a PMH significant for HTN, HLD, dementia, and recurrent UTIs. Found down in the cold in front of her apartment, unresponsive. Found to have had acute CVA. Hypothermia --rectal temp in ED 86.3 F --warmed IV fluids, Micky hugger with excellent response, vital signs normalized and mentation returned to baseline Acute CVA --03/18 MRI brain: small acute right thalamic infarct; multiple chronic infarcts and microbleeds --no significant carotid artery disease --continue ASA, Plavix, Lipitor --per neuro, continue Plavix and ASA 81mg for 3 months Rhabdomyalisis, resolved --CPK 1383--675-->140 Elevated troponins --intermediate troponin elevation likely secondary to rhabdo --ECG not suggestive of acute ischemic event --no events on telemetry --very low suspicion for ACS Hypertension --Echo 03/16/2017: mild concentric LVH; LV normal, RV normal, LAE; mild MR, moderate TR, pHTN, moderate --BP improved on increased amlodipine, continue lisinopril FREDIS, resolved --Cr 1.5 on admission today 0.6 at time of discharge Lactic acidosis, resolved Left upper lobe infiltrate --has been followed by ID; was started on empiric antibiotics but then dc'd as patient was without fever, leukocytosis, or symptoms of pneumonia --continue to monitor off antibiotics FEN Fluids: PO intake adequate Electrolytes: replete as indicated Nutrition: regular diet Physical therapy DVT prophylaxis: subq heparin Dispo: awaiting placement at rehab. Full code. Visit type - Emergency Visit Emergency Visit: Yes ED Registration Date: 03/18/17 Care time: The patient presented to the Emergency Department on the above date and was hospitalized for further evaluation of their emergent condition. - New Patient This patient is new to me today: No - Critical Care Critical Care patient: No
[2017-03-27] MEDS: HEPARIN NA (PORCINE) 5,000 UNITS/ML 1ML VIAL SQ SCH (21:40)
[2017-03-27] MEDS: ATORVASTATIN CA 20 MG TABLET (FP) PO SCH (21:40)
[2017-03-28] MEDS: HEPARIN NA (PORCINE) 5,000 UNITS/ML 1ML VIAL SQ SCH ×3 (06:06→22:10)
[2017-03-28] MEDS: amLODIPine BESYLATE 10 MG TABLET (FP) PO SCH (09:17)
[2017-03-28] MEDS: LISINOPRIL 20 MG TABLET (FP) PO SCH (09:17)
[2017-03-28] MEDS: ASPIRIN COATED 81 MG TABLET.EC PO SCH (09:17)
[2017-03-28] MEDS: CLOPIDOGREL BISULFATE 75 MG TABLET (FP) PO SCH (09:17)
--- NOTE | 2017-03-28 10:53 | PN ---
Progress Note (short form) - Note Progress Note: s: no cp sob palps dizzy o: Vital Signs Period Temp Pulse Resp BP Sys/Luz Pulse Ox Last 24 Hr 97.6 F-98.7 F 54-70 16-22 106-119/56-62 98-99 NAD, alert not oriented JVD flat, neck supple rrr nl s1, s2 2/6 murmur at lsb. ctab, nl effort + bs soft nt nd ext without e/c/c no jaundice, diaphoresis Current Medications Generic Name Dose Route Start Last Admin Trade Name Jemal PRN Reason Stop Dose Admin Amlodipine Besylate 10 mg 03/22/17 10:00 03/28/17 09:17 Norvasc - PO 10 mg DAILY EARL Administration Aspirin 81 mg 03/19/17 10:45 03/28/17 09:17 Ecotrin - PO 81 mg DAILY EARL Administration Atorvastatin Calcium 20 mg 03/24/17 22:00 03/27/17 21:40 Lipitor - PO 20 mg HS EARL Administration Clopidogrel Bisulfate 75 mg 03/21/17 10:30 03/28/17 09:17 Plavix - PO 75 mg DAILY EARL Administration Heparin Sodium (Porcine) 5,000 unit 03/27/17 22:00 03/28/17 06:06 Heparin - SQ 5,000 unit TID EARL Administration Lisinopril 20 mg 03/22/17 10:00 03/28/17 09:17 Prinivil PO 20 mg DAILY EARL Administration CBC, BMP 03/23/17 06:45 03/23/17 06:45 ekg: nsr, lad. non-specific diffuse t wave abnormalities slightly more prominent than on priors. brain mri: non-hemorrhagic small acute right thalamic infarct. chronic right pontine infarct and punctate basal ganglia infarcts. Microvascular changes. Numerous microbleeds noted. patent intracranial vessels. head ct: diffuse cerebral atrophy. chronic small vessel ischemia carotid u/s: no sig stenosis echo : 1+ lvh. nl sys fn. nl rv size/fn. mod lae. 1+ mr. mod tr. rvsp 40-50 echo 11/2016: nl lv/rv size/fn. mod nia. mod MR (eccentric). mod tr a/p: 77 y/o with h/o htn (c/b htn urgency admit 11/2016), chronic lacunar infarcts, HL, possible dementia presents to ER after being found down outside for unknown amount of time/hypothermic on presentation now found to have cva. CVA/syncope/hypothermia - patient found down outside, possible syncope. utox negative. - no acs. ekg without acute ischemic changes. intermediate troponin elevation 2/2 rhabo. echo with nl systolic function. - head ct no acute pathology, carotid u/s unremarkable. But brain MRI shows acute right thalamic infarct. Neuro following, plavix added to low dose asa. - tele benign, tele d/c'd. htn - stable on current meds hld - rhabdo improving. statin initiated. monitor ck. rhabdo - s/p IVF cardiac gilbert stable for snf
--- NOTE | 2017-03-28 19:55 | PN ---
Physical Exam: SUBJECTIVE: Patient seen and examined at bedside. OBJECTIVE: Vital Signs Period Temp Pulse Resp BP Sys/Luz Pulse Ox Last 24 Hr 97.6 F-98.3 F 54-68 16-18 105-134/52-65 98-99 GENERAL: The patient is awake, alert, and fully oriented, in no acute distress. HEAD: Normal with no signs of trauma. EYES: PERRL, extraocular movements intact, sclera anicteric, conjunctiva clear. No ptosis. LUNGS: Breath sounds equal, clear to auscultation bilaterally, no wheezes, no crackles, no accessory muscle use. HEART: Regular rate and rhythm, S1, S2 ABDOMEN: Soft, nontender, nondistended, normoactive bowel sounds, no guarding, no rebound UPPER EXTREMITIES: 2+ pulses, warm, well-perfused, no edema; 5/5 motor and sensory LOWER EXTREMITIES: 2+ pulses, warm, well-perfused, no edema; 5/5 motor and sensory NEUROLOGICAL: Cranial nerves II through XII grossly intact. Normal speech. PSYCH: Normal mood, normal affect. SKIN: Warm, dry, normal turgor Active Medications Generic Name Dose Route Start Last Admin Trade Name Freq PRN Reason Stop Dose Admin Amlodipine Besylate 10 mg 03/22/17 10:00 03/28/17 09:17 Norvasc - PO 10 mg DAILY EARL Administration Aspirin 81 mg 03/19/17 10:45 03/28/17 09:17 Ecotrin - PO 81 mg DAILY EARL Administration Atorvastatin Calcium 20 mg 03/24/17 22:00 03/27/17 21:40 Lipitor - PO 20 mg HS EARL Administration Clopidogrel Bisulfate 75 mg 03/21/17 10:30 03/28/17 09:17 Plavix - PO 75 mg DAILY EARL Administration Heparin Sodium (Porcine) 5,000 unit 03/27/17 22:00 03/28/17 13:18 Heparin - SQ 5,000 unit TID EARL Administration Lisinopril 20 mg 03/22/17 10:00 03/28/17 09:17 Prinivil PO 20 mg DAILY EARL Administration ASSESSMENT/PLAN 77 year-old female with a PMH significant for HTN, HLD, dementia, and recurrent UTIs. Found down in the cold in front of her apartment, unresponsive. Found to have had acute CVA. Hypothermia --rectal temp in ED 86.3 F --warmed IV fluids, Micky hugger with excellent response, vital signs normalized and mentation returned to baseline Acute CVA --03/18 MRI brain: small acute right thalamic infarct; multiple chronic infarcts and microbleeds --no significant carotid artery disease --continue ASA, Plavix, Lipitor --per neuro, continue Plavix and ASA 81mg for 3 months Rhabdomyalisis, resolved --CPK 1383--675-->140 Elevated troponins --intermediate troponin elevation likely secondary to rhabdo --ECG not suggestive of acute ischemic event --no events on telemetry --very low suspicion for ACS Hypertension --Echo 03/16/2017: mild concentric LVH; LV normal, RV normal, LAE; mild MR, moderate TR, pHTN, moderate --BP improved on increased amlodipine, continue lisinopril FREDIS, resolved --Cr 1.5 on admission today 0.6 at time of discharge Lactic acidosis, resolved Left upper lobe infiltrate --has been followed by ID; was started on empiric antibiotics but then dc'd as patient was without fever, leukocytosis, or symptoms of pneumonia --continue to monitor off antibiotics FEN Fluids: PO intake adequate Electrolytes: replete as indicated Nutrition: regular diet Physical therapy DVT prophylaxis: subq heparin Dispo: still awaiting placement at rehab. Full code. Visit type - Emergency Visit Emergency Visit: Yes ED Registration Date: 03/18/17 Care time: The patient presented to the Emergency Department on the above date and was hospitalized for further evaluation of their emergent condition. - New Patient This patient is new to me today: No - Critical Care Critical Care patient: No
[2017-03-28] MEDS: ATORVASTATIN CA 20 MG TABLET (FP) PO SCH (22:10)
[2017-03-29] MEDS: HEPARIN NA (PORCINE) 5,000 UNITS/ML 1ML VIAL SQ SCH ×2 (06:51→13:32)
--- NOTE | 2017-03-29 09:04 | PN ---
Progress Note, Physician Chief Complaint: cva History of Present Illness: denies palpitations, cp, sob, leg swelling - Current Medication List Current Medications: Active Medications Amlodipine Besylate (Norvasc -) 10 mg PO DAILY [facility] Last Admin: 03/28/17 09:17 Dose: 10 mg Aspirin (Ecotrin -) 81 mg PO DAILY [facility] Last Admin: 03/28/17 09:17 Dose: 81 mg Atorvastatin Calcium (Lipitor -) 20 mg PO HS [facility] Last Admin: 03/28/17 22:10 Dose: 20 mg Clopidogrel Bisulfate (Plavix -) 75 mg PO DAILY [facility] Last Admin: 03/28/17 09:17 Dose: 75 mg Heparin Sodium (Porcine) (Heparin -) 5,000 unit SQ TID [facility] Last Admin: 03/29/17 06:51 Dose: 5,000 unit Lisinopril (Prinivil) 20 mg PO DAILY [facility] Last Admin: 03/28/17 09:17 Dose: 20 mg - Objective Vital Signs: Vital Signs Temperature 97.5 F L 03/29/17 06:00 Pulse Rate 55 L 03/29/17 06:00 Respiratory Rate 20 03/29/17 06:00 Blood Pressure 149/75 03/29/17 06:00 O2 Sat by Pulse Oximetry (%) 99 03/28/17 21:00 Constitutional: Yes: Well Nourished, No Distress, Calm Cardiovascular: Yes: Regular Rate and Rhythm, S1, S2. No: Gallop, Murmur Respiratory: Yes: Regular, CTA Bilaterally. No: Accessory Muscle Use, Rales, Wheezes Extremities: No: Cold Edema: No Neurological: Yes: Alert. No: Seizure Psychiatric: No: Agitated Labs: CBC, BMP 03/23/17 06:45 03/23/17 06:45 INR, PTT INR 1.04 (0.82-1.09) 03/18/17 09:16 Assessment/Plan ekg: nsr, lad. non-specific diffuse t wave abnormalities slightly more prominent than on priors. brain mri: non-hemorrhagic small acute right thalamic infarct. chronic right pontine infarct and punctate basal ganglia infarcts. Microvascular changes. Numerous microbleeds noted. patent intracranial vessels. carotid u/s: no sig stenosis echo : 1+ lvh. nl sys fn. nl rv size/fn. mod lae. 1+ mr. mod tr. rvsp 40-50 echo 11/2016: nl lv/rv size/fn. mod nia. mod MR (eccentric). mod tr a/p: 77 y/o with h/o htn (c/b htn urgency admit 11/2016), chronic lacunar infarcts, HL, possible dementia presents to ER after being found down outside for unknown amount of time/hypothermic on presentation now found to have cva. CVA/syncope/hypothermia - patient found down outside, possible syncope. utox negative. - no acs. ekg without acute ischemic changes. intermediate troponin elevation 2 / rhabo. echo with nl systolic function. - brain MRI shows acute right thalamic infarct. Neuro following, plavix added to low dose asa. - carotid u/s unremarkable. But - tele benign, tele d/c'd. htn - overall well controlled at present - cont current meds hld - rhabdo improving. statin initiated (for sec prevention CVA). monitor ck. elevated cpk, ? rhabdo: - renal fxn stable - cpk mas 2K, trending down
[2017-03-29] MEDS: ASPIRIN COATED 81 MG TABLET.EC PO SCH (09:08)
[2017-03-29] MEDS: amLODIPine BESYLATE 10 MG TABLET (FP) PO SCH (09:08)
[2017-03-29] MEDS: LISINOPRIL 20 MG TABLET (FP) PO SCH (09:08)
[2017-03-29] MEDS: CLOPIDOGREL BISULFATE 75 MG TABLET (FP) PO SCH (09:08)
[2017-03-29 10:16] VITALS: BP 116/55; PULSE 62; TEMP 98.2
--- NOTE | 2017-03-29 10:59 | PN ---
Progress Note, [employer] - Note Progress Note: Selected Entries 03/18/17 03/18/17 03/18/17 09:11 10:04 12:05 Breakfast Lunch Supper Temperature 83.6 F L 90.9 F L 95.6 F L 03/18/17 03/18/17 03/18/17 14:59 16:04 17:59 Breakfast Lunch Supper Temperature 98.8 F 98.0 F 98.3 F 03/18/17 03/18/17 03/19/17 18:16 19:30 00:00 Breakfast Lunch Supper Temperature 98.3 F 99.0 F 99.0 F 03/19/17 03/28/17 03/28/17 03:30 06:00 10:00 Breakfast Lunch Supper Temperature 98.0 F 98.3 F 97.6 F 03/28/17 03/28/17 03/28/17 13:04 14:18 18:00 Breakfast 100% Lunch 100% Supper Temperature 97.9 F 97.8 F 03/28/17 03/28/17 03/29/17 18:49 22:09 06:00 Breakfast Lunch Supper 100% Temperature 97.5 F L 97.5 F L 03/29/17 10:00 Breakfast Lunch Supper Temperature 98.2 F Laboratory Tests 03/18/17 03/19/17 09:16 06:20 WBC 10.6 H D 6.6 D Memory deficits and impaired insight. "December" "Xm passed" Tolerating diet without difficulty. Pt will benefit from cognitive rehabilitation.
--- NOTE | 2017-03-29 13:24 | PN ---
Progress Note, Physician History of Present Illness: stable no new issues - Current Medication List Current Medications: Active Medications Amlodipine Besylate (Norvasc -) 10 mg PO DAILY [facility] Last Admin: 03/29/17 09:08 Dose: 10 mg Aspirin (Ecotrin -) 81 mg PO DAILY [facility] Last Admin: 03/29/17 09:08 Dose: 81 mg Atorvastatin Calcium (Lipitor -) 20 mg PO HS [facility] Last Admin: 03/28/17 22:10 Dose: 20 mg Clopidogrel Bisulfate (Plavix -) 75 mg PO DAILY [facility] Last Admin: 03/29/17 09:08 Dose: 75 mg Heparin Sodium (Porcine) (Heparin -) 5,000 unit SQ TID [facility] Last Admin: 03/29/17 06:51 Dose: 5,000 unit Lisinopril (Prinivil) 20 mg PO DAILY [facility] Last Admin: 03/29/17 09:08 Dose: 20 mg - Objective Vital Signs: Vital Signs Temperature 98.2 F 03/29/17 10:00 Pulse Rate 62 03/29/17 10:00 Respiratory Rate 18 03/29/17 10:00 Blood Pressure 116/55 03/29/17 10:00 O2 Sat by Pulse Oximetry (%) 99 03/29/17 09:00 Constitutional: Yes: Calm Cardiovascular: Yes: Regular Rate and Rhythm Respiratory: Yes: Regular, CTA Bilaterally Gastrointestinal: Yes: Normal Bowel Sounds, Soft Musculoskeletal: Yes: WNL Extremities: Yes: WNL Neurological: Yes: Alert, Confusion (minimal) Psychiatric: Yes: Alert Labs: CBC, BMP 03/23/17 06:45 03/23/17 06:45 INR, PTT INR 1.04 (0.82-1.09) 03/18/17 09:16 Assessment/Plan Problem List - Problems (1) Anemia Code(s): D64.9 - ANEMIA, UNSPECIFIED (2) Altered mental status Code(s): R41.82 - ALTERED MENTAL STATUS, UNSPECIFIED Qualifiers: Altered mental status type: unspecified Qualified Code(s): R41.82 - Altered mental status, unspecified (3) Hypothermia Code(s): T68.XXXA - HYPOTHERMIA, INITIAL ENCOUNTER Qualifiers: Encounter type: initial encounter Qualified Code(s): T68.XXXA - Hypothermia , initial encounter (4) Rhabdomyolysis Code(s): M62.82 - RHABDOMYOLYSIS Qualifiers: Rhabdomyolysis type: non-traumatic Qualified Code(s): M62.82 - Rhabdomyolysis (5) Confusion Code(s): R41.0 - DISORIENTATION, UNSPECIFIED (6) Hypertensive emergency Code(s): I16.1 - HYPERTENSIVE EMERGENCY (7) Pneumonia Code(s): J18.9 - PNEUMONIA, UNSPECIFIED ORGANISM plan continue current mgmt neurology on case close watch rest as per primary team patient stable
--- NOTE | 2017-03-29 13:29 | DS ---
Physical Examination Vital Signs: Vital Signs Temperature 98.2 F 03/29/17 10:00 Pulse Rate 62 03/29/17 10:00 Respiratory Rate 18 03/29/17 10:00 Blood Pressure 116/55 03/29/17 10:00 O2 Sat by Pulse Oximetry (%) 99 03/29/17 09:00 Labs: CBC, BMP 03/23/17 06:45 03/23/17 06:45 Discharge Summary Reason For Visit: ACUTE KIDNEY INJURY, HYPOTHERMIA, RHABDOMYOLYSIS, Current Active Problems FREDIS (acute kidney injury) (Acute) Altered mental status (Acute) Anemia (Acute) Hypothermia (Acute) Pneumonia (Acute) Rhabdomyolysis (Acute) Condition: Critical - Instructions Diet, Activity, Other Instructions: A prescription has been sent to your pharmacy for Plavix which is a blood- thinning medication. You should take this medication for a total of 90 days. You will need to follow up with a primary care provider. You may choose to follow up with Dr. Patel at the [facility] within one week of your discharge. Her contact information is enclosed. Return to the emergency department for any new or worsening symptoms. Referrals: Damaso Patel MD [Staff Physician] - 1 Week Disposition: LONG TERM FACILITY - Home Medications Comprehensive Discharge Medication List: Ambulatory Orders Amlodipine Besylate [Norvasc -] 10 mg PO DAILY #30 tablet 12/10/16 Aspirin Coated [Ecotrin -] 81 mg PO DAILY #30 tab 12/10/16 Atorvastatin Ca [Lipitor] 40 mg PO HS #30 tablet 12/10/16 Lisinopril [Prinivil] 20 mg PO DAILY #30 tablet 12/10/16 Clopidogrel Bisulfate [Plavix -] 75 mg PO DAILY #30 tablet 03/24/17 - Discharge Referral Referred to [facility] Med P.C[facility] No
== END 2017-03-29 14:14 | disposition short-term general hospital (02) | DRG 64 ==
LOC: JER 08:48 → JERBED 12:57 → J4S 03-19 03:08
PROVIDERS: ADMIT Internal Medicine; ATTEND Registered Nurse
DX: I63.8 Other cerebral infarction (principal); J18.9 Pneumonia, unspecified organism; N17.9 Acute kidney failure, unspecified; M62.82 Rhabdomyolysis; E87.2 Acidosis; I16.1 Hypertensive emergency; I10 Essential (primary) hypertension; E78.5 Hyperlipidemia, unspecified; T68.XXXA Hypothermia, initial encounter; E87.5 Hyperkalemia; Z91.14 Patient's other noncompliance with medication regimen; F03.90 Unspecified dementia, unspecified severity, without behavioral disturbance, psychotic disturbance, mood disturbance, and anxiety; D64.9 Anemia, unspecified; R41.0 Disorientation, unspecified; R74.8 Abnormal levels of other serum enzymes; R55 Syncope and collapse; I08.1 Rheumatic disorders of both mitral and tricuspid valves; Z87.440 Personal history of urinary (tract) infections; Z87.891 Personal history of nicotine dependence
CPT/HCPCS: 36415; 70450-TC; 70551-TC; 71010-TC; 80053; 80061; 80307; 81003; 81015; 82550; 82553; 82803; 83036; 83605; 83721; 83735; 83874; 84100; 84443; 84484; 85025; 85610; 85730; 86850; 86900; 86901; 87040; 87086; 93005; 93010; 93880-TC; 97116-GP; 97161-GP; 99285-25; J1644

== ENCOUNTER 2021-06-11 10:59 | Emergency (ER) | payer OTHER ==
[2021-06-11 11:46] VITALS: TEMP 97.8; BMI 30.9
[2021-06-11] MEDS ORDERED: SODIUM CHLORIDE 500 ML IV STA ×2 (12:02→14:30)
[2021-06-11] MEDS ORDERED: FAMOTIDINE 20 MG/50 ML IVPB 20 MG/50 ML MG IVPB ONE ×3 (12:02→12:09)
[2021-06-11 12:44] LABS: BASO % 0.4 % (0-2.0); EOS % 0.3 % (0-4.5); HEMATOCRIT 36.8 % (32.4-45.2); HEMOGLOBIN 12.2 GM/dL (10.7-15.3); MEAN PLT VOLUME 9.3 fl (7.5-11.1); MONO % 5.2 % (3.8-10.2); NEUT % 83.1 % (42.8-82.8); PLATELET COUNT 262 10^3/uL (134-434); RBC 4.49 M/mm3 (3.60-5.2); RDW 15.8 % (11.6-15.6); WHITE BLOOD COUNT 7.4 K/mm3 (4.0-10.0)
[2021-06-11 13:06] LABS: CALCIUM 9.4 mg/dL (8.5-10.1)
[2021-06-11 13:07] LABS: BLOOD UREA NITROGEN 32.7 mg/dL (7-18)
[2021-06-11 13:09] LABS: CREATININE 1.4 mg/dL (0.55-1.3)
[2021-06-11 13:12] LABS: BILIRUBIN,TOTAL 0.6 mg/dL (0.2-1); TOT PROT 7.4 g/dl (6.4-8.2)
[2021-06-11 13:41] LABS: EPI CELLS 6 /uL (0-25.1); HYALINE CASTS 4 /uL (0-3.1); URINE APPEARANCE CLEAR; URINE BACTERIA 5 /uL (0-1359); URINE BILIRUBIN NEGATIVE (NEGATIVE); URINE COLOR YELLOW; URINE GLUCOSE (UA) NEGATIVE (NEGATIVE); URINE KETONE NEGATIVE (NEGATIVE); URINE LEUK ESTERASE NEGATIVE (NEGATIVE); URINE NITRITE NEGATIVE (NEGATIVE); URINE PROTEIN 1+ (NEGATIVE); URINE RBC 48 /uL (0-23.9); URINE WBC 3 /uL (0-25.8)
[2021-06-11 20:16] VITALS: BP 132/68; PULSE 72
== END 2021-06-11 20:22 | disposition home or self-care (01) ==
LOC: JER 10:59
PROC: 3E033GC Introduction of Other Therapeutic Substance into Peripheral Vein, Percutaneous Approach (ICD-10-PCS; principal; 2021-06-11)
DX: R53.81 Other malaise (principal)
CPT/HCPCS: 36415; 71045-TC-FY; 80053; 81003; 83690; 84484; 85025; 87086; 93005; 93010; 99285-25

== ENCOUNTER 2021-09-03 15:00 | Inpatient (IN) | payer OTHER ==
[2021-09-03] MEDS ORDERED: LACTATED RINGERS SOLUTION 1000 ML INFUS.BAG IV ONE (15:51)
[2021-09-03 16:35] LABS: BASO % 0.7 % (0-2.0); EOS % 0.6 % (0-4.5); HEMATOCRIT 36.9 % (32.4-45.2); HEMOGLOBIN 11.9 GM/dL (10.7-15.3); LYMPH % 16.5 % (8-40); MCH 26.5 pg (25.7-33.7); MCHC 32.3 g/dl (32.0-36.0); MEAN PLT VOLUME 9.6 fl (7.5-11.1); MONO % 7.8 % (3.8-10.2); NEUT % 74.4 % (42.8-82.8); PLATELET COUNT 284 10^3/uL (134-434); RDW 16.1 % (11.6-15.6); WHITE BLOOD COUNT 6.7 K/mm3 (4.0-10.0)
[2021-09-03 16:52] LABS: INR 1.02 (0.83-1.09); PROTHROMBIN TIME (PATIENT) 11.7 SEC (9.7-13.0)
[2021-09-03 16:54] LABS: BLOOD UREA NITROGEN 27.2 mg/dL (7-18)
[2021-09-03 16:57] LABS: CREATININE 1.2 mg/dL (0.55-1.3)
[2021-09-03 16:58] LABS: BILIRUBIN,TOTAL 0.6 mg/dL (0.2-1)
[2021-09-03 19:42] LABS: EPI CELLS 10 /uL (0-25.1); HYALINE CASTS 1 /uL (0-3.1); URINE APPEARANCE CLEAR; URINE BACTERIA 13 /uL (0-1359); URINE BILIRUBIN NEGATIVE (NEGATIVE); URINE COLOR YELLOW; URINE GLUCOSE (UA) NEGATIVE (NEGATIVE); URINE KETONE NEGATIVE (NEGATIVE); URINE LEUK ESTERASE TRACE (NEGATIVE); URINE NITRITE NEGATIVE (NEGATIVE); URINE PROTEIN TRACE (NEGATIVE); URINE RBC 68 /uL (0-23.9); URINE WBC 15 /uL (0-25.8)
[2021-09-03] MEDS ORDERED: LISINOPRIL 20 MG TABLET ONE (22:28)
[2021-09-03] MEDS ORDERED: ATORVASTATIN CA 10 MG TABLET (FP) ONE (22:29)
[2021-09-03] MEDS ORDERED: amLODIPine BESYLATE 10 MG TABLET (FP) ONE (22:29)
[2021-09-03] MEDS ORDERED: CITALOPRAM HYDROBROMIDE 10 MG TABLET ONE (22:29)
[2021-09-03 22:44] LABS: TRIGLYCERIDES 44 mg/dL (0-150)
[2021-09-03 22:45] LABS: CHOLESTEROL 195 mg/dL (50-200); LDL CHOLESTEROL (ONLY SJRH) 131 mg/dL (5-100)
[2021-09-03 22:46] LABS: HDL CHOLESTEROL 51 mg/dL (40-60)
[2021-09-03] MEDS: CITALOPRAM HYDROBROMIDE 10 MG TABLET PO SCH (23:26)
[2021-09-03] MEDS: SODIUM CHLORIDE 1,000 ML IV SCH (23:26)
[2021-09-03] MEDS: LISINOPRIL 20 MG TABLET PO SCH (23:26)
[2021-09-03] MEDS: ATORVASTATIN CA 10 MG TABLET (FP) PO SCH (23:26)
[2021-09-03] MEDS: amLODIPine BESYLATE 10 MG TABLET (FP) PO SCH (23:26)
[2021-09-04 02:26] VITALS: BMI 26.1
[2021-09-04 06:43] LABS: BASO % 0.5 % (0-2.0); EOS % 0.6 % (0-4.5); HEMATOCRIT 31.5 % (32.4-45.2); HEMOGLOBIN 10.5 GM/dL (10.7-15.3); MCH 27.4 pg (25.7-33.7); MCHC 33.3 g/dl (32.0-36.0); MEAN CELL VOLUME 82.1 fl (80-96); MEAN PLT VOLUME 9.6 fl (7.5-11.1); NEUT % 68.9 % (42.8-82.8); PLATELET COUNT 233 10^3/uL (134-434); RBC 3.84 M/mm3 (3.60-5.2); RDW 15.2 % (11.6-15.6)
[2021-09-04 07:05] LABS: ALBUMIN 3.3 g/dl (3.4-5.0)
[2021-09-04 07:06] LABS: BLOOD UREA NITROGEN 20.5 mg/dL (7-18); MAGNESIUM 2.1 mg/dL (1.8-2.4)
[2021-09-04 07:09] LABS: PHOSPHOROUS 3.1 mg/dL (2.5-4.9)
[2021-09-04 07:10] LABS: BILIRUBIN,TOTAL 0.8 mg/dL (0.2-1); TOT PROT 6.2 g/dl (6.4-8.2)
[2021-09-04] MEDS: ENOXAPARIN NA (PORCINE) 40 MG/0.4 ML DISP.SYRIN SQ SCH (10:18)
[2021-09-04] MEDS: LISINOPRIL 20 MG TABLET PO SCH (10:18)
[2021-09-04] MEDS: amLODIPine BESYLATE 10 MG TABLET (FP) PO SCH (10:18)
[2021-09-04] MEDS: CITALOPRAM HYDROBROMIDE 10 MG TABLET PO SCH (15:42)
[2021-09-04] MEDS: SODIUM CHLORIDE 1,000 ML IV SCH ×2 (17:41→21:56)
[2021-09-04] MEDS: ATORVASTATIN CA 10 MG TABLET (FP) PO SCH (21:53)
[2021-09-05] MEDS: LISINOPRIL 20 MG TABLET PO SCH (09:31)
[2021-09-05] MEDS: CITALOPRAM HYDROBROMIDE 10 MG TABLET PO SCH (09:31)
[2021-09-05] MEDS: ENOXAPARIN NA (PORCINE) 40 MG/0.4 ML DISP.SYRIN SQ SCH (09:31)
[2021-09-05] MEDS: amLODIPine BESYLATE 10 MG TABLET (FP) PO SCH (09:31)
[2021-09-05] MEDS ORDERED: LORazepam 1 MG TABLET PO PRN (15:36)
[2021-09-05] MEDS: SODIUM CHLORIDE 1,000 ML IV SCH (21:30)
[2021-09-05] MEDS: ATORVASTATIN CA 10 MG TABLET (FP) PO SCH (23:07)
[2021-09-06] MEDS: ENOXAPARIN NA (PORCINE) 40 MG/0.4 ML DISP.SYRIN SQ SCH (09:28)
[2021-09-06] MEDS: CITALOPRAM HYDROBROMIDE 10 MG TABLET PO SCH (09:28)
[2021-09-06] MEDS: LISINOPRIL 20 MG TABLET PO SCH (09:29)
[2021-09-06] MEDS: amLODIPine BESYLATE 10 MG TABLET (FP) PO SCH (09:29)
[2021-09-06] MEDS: ATORVASTATIN CA 10 MG TABLET (FP) PO SCH (22:08)
[2021-09-07] MEDS: ENOXAPARIN NA (PORCINE) 40 MG/0.4 ML DISP.SYRIN SQ SCH (11:45)
[2021-09-07] MEDS: amLODIPine BESYLATE 10 MG TABLET (FP) PO SCH (11:45)
[2021-09-07] MEDS: LISINOPRIL 20 MG TABLET PO SCH (11:46)
[2021-09-07] MEDS: CITALOPRAM HYDROBROMIDE 10 MG TABLET PO SCH (11:50)
[2021-09-07] MEDS: ATORVASTATIN CA 10 MG TABLET (FP) PO SCH (23:18)
[2021-09-08] MEDS: CITALOPRAM HYDROBROMIDE 10 MG TABLET PO SCH (09:16)
[2021-09-08] MEDS: ENOXAPARIN NA (PORCINE) 40 MG/0.4 ML DISP.SYRIN SQ SCH (09:16)
[2021-09-08] MEDS: LISINOPRIL 20 MG TABLET PO SCH (09:16)
[2021-09-08] MEDS: amLODIPine BESYLATE 10 MG TABLET (FP) PO SCH (09:16)
[2021-09-08] MEDS: ATORVASTATIN CA 10 MG TABLET (FP) PO SCH (21:44)
[2021-09-09 08:05] LABS: BASO % 0.9 % (0-2.0); EOS % 3.2 % (0-4.5); HEMATOCRIT 33.7 % (32.4-45.2); HEMOGLOBIN 11.1 GM/dL (10.7-15.3); LYMPH % 26.9 % (8-40); MCH 26.8 pg (25.7-33.7); MEAN CELL VOLUME 81.4 fl (80-96); MEAN PLT VOLUME 9.6 fl (7.5-11.1); PLATELET COUNT 266 10^3/uL (134-434); RBC 4.14 M/mm3 (3.60-5.2); RDW 15.8 % (11.6-15.6); WHITE BLOOD COUNT 4.7 K/mm3 (4.0-10.0)
[2021-09-09 08:21] LABS: ALBUMIN 3.4 g/dl (3.4-5.0); CALCIUM 9.4 mg/dL (8.5-10.1)
[2021-09-09 08:26] LABS: BILIRUBIN,TOTAL 0.9 mg/dL (0.2-1); TOT PROT 6.3 g/dl (6.4-8.2)
[2021-09-09] MEDS: ENOXAPARIN NA (PORCINE) 40 MG/0.4 ML DISP.SYRIN SQ SCH (09:48)
[2021-09-09] MEDS: LISINOPRIL 20 MG TABLET PO SCH (09:49)
[2021-09-09] MEDS: amLODIPine BESYLATE 10 MG TABLET (FP) PO SCH (09:49)
[2021-09-09] MEDS: CITALOPRAM HYDROBROMIDE 20 MG TABLET PO SCH (09:49)
[2021-09-09] MEDS ORDERED: LORazepam 1 MG TABLET PO PRN (10:49)
[2021-09-09] MEDS ORDERED: ATORVASTATIN CA 10 MG TABLET (FP) PO SCH (22:00)
[2021-09-10] MEDS ORDERED: LISINOPRIL 20 MG TABLET PO SCH (10:00)
[2021-09-10] MEDS ORDERED: ENOXAPARIN NA (PORCINE) 40 MG/0.4 ML DISP.SYRIN SQ SCH (10:00)
[2021-09-10] MEDS ORDERED: amLODIPine BESYLATE 10 MG TABLET (FP) PO SCH (10:00)
[2021-09-10] MEDS: CITALOPRAM HYDROBROMIDE 20 MG TABLET PO SCH (12:33)
[2021-09-10 15:43] VITALS: BP 120/63; PULSE 64; TEMP 98.6
== END 2021-09-10 18:58 | DRG 684 ==
LOC: JER 15:00 → JERBED 18:41 → J4W 09-04 01:37 → OBSVTOIN 09-05 14:54 → J8W 09-09 10:12
PROVIDERS: ADMIT Hospitalist
DX: N17.9 Acute kidney failure, unspecified (principal); I10 Essential (primary) hypertension; E78.5 Hyperlipidemia, unspecified; R55 Syncope and collapse; F03.90 Unspecified dementia, unspecified severity, without behavioral disturbance, psychotic disturbance, mood disturbance, and anxiety; E04.1 Nontoxic single thyroid nodule; F41.8 Other specified anxiety disorders; R41.82 Altered mental status, unspecified; I51.7 Cardiomegaly
CPT/HCPCS: 0241U-QW; 36415; 70450-TC; 71045-TC-FY; 80053; 80061; 81003; 83036; 83735; 84100; 84443; 84484; 85025; 85610; 85730; 86850; 86900; 86901; 87086; 93005; 93010; 93306-TC; 93880-TC; 97116-GP; 97162-GP; 99285-25; C9803-CS; G0378; U0003; U0005

== ENCOUNTER 2022-08-20 00:39 | Inpatient (IN) | payer OTHER ==
[2022-08-20 01:08] VITALS: BMI 23.9
[2022-08-20 01:53] LABS: BASO % 0.7 % (0-2.0); EOS % 2.5 % (0-4.5); HEMATOCRIT 33.7 % (32.4-45.2); HEMOGLOBIN 11.2 GM/dL (10.7-15.3); LYMPH % 17.7 % (8-40); MCH 27.5 pg (25.7-33.7); MCHC 33.4 g/dl (32.0-36.0); MEAN CELL VOLUME 82.3 fl (80-96); MEAN PLT VOLUME 9.7 fl (7.5-11.1); MONO % 11.3 % (3.8-10.2); NEUT % 67.8 % (42.8-82.8); PLATELET COUNT 240 10^3/uL (134-434); RBC 4.09 M/mm3 (3.60-5.2); RDW 15.9 % (11.6-15.6); WHITE BLOOD COUNT 6.6 K/mm3 (4.0-10.0)
[2022-08-20 02:12] LABS: POTASSIUM 5.5 mmol/L (3.5-5.1)
[2022-08-20 02:14] LABS: CALCIUM 9.4 mg/dL (8.5-10.1)
[2022-08-20 02:15] LABS: ALBUMIN 3.6 g/dl (3.4-5.0); BLOOD UREA NITROGEN 33.3 mg/dL (7-18)
[2022-08-20 02:18] LABS: CREATININE 1.2 mg/dL (0.55-1.3)
[2022-08-20 02:19] LABS: BILIRUBIN,TOTAL 0.5 mg/dL (0.2-1)
[2022-08-20 03:07] LABS: EPI CELLS 7 /uL (0-25.1); HYALINE CASTS 0 /uL (0-3.1); PH,URINE 5.5 (5.0-8.0); URINE APPEARANCE CLEAR; URINE BACTERIA 3126 /uL (0-1359); URINE BILIRUBIN NEGATIVE (NEGATIVE); URINE COLOR YELLOW; URINE GLUCOSE (UA) NEGATIVE (NEGATIVE); URINE KETONE NEGATIVE (NEGATIVE); URINE LEUK ESTERASE TRACE (NEGATIVE); URINE NITRITE NEGATIVE (NEGATIVE); URINE PROTEIN NEGATIVE (NEGATIVE); URINE UROBILINOGEN 0.2 mg/dL (0.2-1.0); URINE WBC 12 /uL (0-25.8)
[2022-08-20] MEDS ORDERED: SODIUM CHLORIDE 1,000 ML IV SCH (03:45)
[2022-08-20 07:39] LABS: INR 1.03 (0.83-1.09)
[2022-08-20 07:41] LABS: ACTIVATED PTT 27.5 SECONDS (25.2-36.5)
[2022-08-20 07:53] LABS: CALCIUM 9.5 mg/dL (8.5-10.1)
[2022-08-20 07:54] LABS: BLOOD UREA NITROGEN 27.6 mg/dL (7-18); MAGNESIUM 2.2 mg/dL (1.8-2.4)
[2022-08-20 07:57] LABS: PHOSPHOROUS 3.4 mg/dL (2.5-4.9)
[2022-08-20] MEDS: SENNOSIDES 8.6MG TABLET (FP) PO SCH (08:51)
[2022-08-20] MEDS: LISINOPRIL 20 MG TABLET PO SCH (10:48)
[2022-08-20] MEDS: CITALOPRAM HYDROBROMIDE 20 MG TABLET PO SCH (10:48)
[2022-08-20] MEDS: amLODIPine BESYLATE 10 MG TABLET (FP) PO SCH (10:48)
[2022-08-20] MEDS ORDERED: ATORVASTATIN CA 10 MG TABLET (FP) PO SCH (22:00)
[2022-08-21 06:48] LABS: BASO % 0.6 % (0-2.0); EOS % 2.9 % (0-4.5); HEMATOCRIT 32.4 % (32.4-45.2); LYMPH % 32.4 % (8-40); MCH 27.5 pg (25.7-33.7); MEAN CELL VOLUME 80.7 fl (80-96); MONO % 10.2 % (3.8-10.2); NEUT % 53.9 % (42.8-82.8); PLATELET COUNT 247 10^3/uL (134-434); RBC 4.01 M/mm3 (3.60-5.2); RDW 15.9 % (11.6-15.6); WHITE BLOOD COUNT 4.4 K/mm3 (4.0-10.0)
[2022-08-21 07:06] LABS: POTASSIUM 4.5 mmol/L (3.5-5.1)
[2022-08-21 07:09] LABS: BLOOD UREA NITROGEN 19.9 mg/dL (7-18)
[2022-08-21] MEDS: SENNOSIDES 8.6MG TABLET (FP) PO SCH (08:03)
[2022-08-21] MEDS: amLODIPine BESYLATE 10 MG TABLET (FP) PO SCH (10:04)
[2022-08-21] MEDS: CITALOPRAM HYDROBROMIDE 20 MG TABLET PO SCH (10:05)
[2022-08-21] MEDS: LISINOPRIL 20 MG TABLET PO SCH (10:05)
[2022-08-21] MEDS ORDERED: CEPHALEXIN MONOHYDRATE 500 MG CAPSULE (UD) PO SCH (14:00)
[2022-08-21] MEDS: CEPHALEXIN MONOHYDRATE 500 MG CAPSULE (UD) PO SCH (22:55)
[2022-08-21] MEDS: ATORVASTATIN CA 10 MG TABLET (FP) PO SCH (22:55)
[2022-08-22] MEDS: CEPHALEXIN MONOHYDRATE 500 MG CAPSULE (UD) PO SCH ×3 (06:23→21:27)
[2022-08-22] MEDS: SENNOSIDES 8.6MG TABLET (FP) PO SCH (08:50)
[2022-08-22] MEDS: LISINOPRIL 20 MG TABLET PO SCH (10:13)
[2022-08-22] MEDS: CITALOPRAM HYDROBROMIDE 20 MG TABLET PO SCH (10:13)
[2022-08-22] MEDS: amLODIPine BESYLATE 10 MG TABLET (FP) PO SCH (10:13)
[2022-08-22] MEDS: ATORVASTATIN CA 10 MG TABLET (FP) PO SCH (21:27)
[2022-08-23] MEDS: CEPHALEXIN MONOHYDRATE 500 MG CAPSULE (UD) PO SCH ×3 (05:35→21:05)
[2022-08-23] MEDS: SENNOSIDES 8.6MG TABLET (FP) PO SCH (09:05)
[2022-08-23] MEDS: amLODIPine BESYLATE 10 MG TABLET (FP) PO SCH (09:05)
[2022-08-23] MEDS: CITALOPRAM HYDROBROMIDE 20 MG TABLET PO SCH (09:05)
[2022-08-23] MEDS: LISINOPRIL 20 MG TABLET PO SCH (09:05)
[2022-08-23] MEDS: ATORVASTATIN CA 10 MG TABLET (FP) PO SCH (21:04)
[2022-08-24] MEDS: CEPHALEXIN MONOHYDRATE 500 MG CAPSULE (UD) PO SCH ×2 (06:11→15:07)
[2022-08-24] MEDS: LISINOPRIL 20 MG TABLET PO SCH (09:16)
[2022-08-24] MEDS: CITALOPRAM HYDROBROMIDE 20 MG TABLET PO SCH (09:16)
[2022-08-24] MEDS: SENNOSIDES 8.6MG TABLET (FP) PO SCH (09:16)
[2022-08-24] MEDS: amLODIPine BESYLATE 10 MG TABLET (FP) PO SCH (09:16)
[2022-08-24 09:17] VITALS: TEMP 98
[2022-08-24 14:29] VITALS: BP 106/61; PULSE 61; RESP 18
== END 2022-08-24 17:53 | DRG 312 ==
LOC: JER 00:39 → JERBED 02:53 → J4W 05:28 → OBSVTOIN 13:37 → J8W 08-21 16:30
PROVIDERS: ADMIT Internal Medicine; ATTEND Internal Medicine
DX: R55 Syncope and collapse (principal); N39.0 Urinary tract infection, site not specified; F03.90 Unspecified dementia, unspecified severity, without behavioral disturbance, psychotic disturbance, mood disturbance, and anxiety; E78.5 Hyperlipidemia, unspecified; I10 Essential (primary) hypertension; F32.A Depression, unspecified
CPT/HCPCS: 36415; 70450-TC; 71045-TC-FY; 80048; 80053; 81003; 83735; 84100; 84484; 85025; 85610; 85730; 87086; 87635; 93005; 93010; 97116-GP; 97161-GP; 99285-25; G0378